=== PATIENT | female | born 1935 | race Hispanic/Latino ===

== ENCOUNTER 2017-09-08 21:15 | Emergency (ER) | payer OTHER ==
[2017-09-08 22:43] LABS: Urine Blood NEGATIVE (NEG); Urine Glucose NEGATIVE (NEG); Urine Protein NEGATIVE (NEG)
--- NOTE | 2017-09-08 23:49 | EDPHYS ---
Physician Documentation [facility] Name: Wen Aguirre Age: 82 yrs Sex: Female : 1935 Arrival Date: 09/08/2017 Time: 21:32 Bed 6 Private MD: ED Physician Kvng Ruggiero HPI: 09/08 23:44 This 82 yrs old Female presents to ER via Ambulatory with complaints of Flu gs Symptoms. 23:44 The patient or guardian reports cough, flu symptoms, arthralgias, low-grade fever, gs myalgias, no appetite. Onset: The symptoms/episode began/occurred yesterday. Severity of symptoms: At their worst the symptoms were moderate, in the emergency department the symptoms are unchanged. Modifying factors: The symptoms are alleviated by nothing, the symptoms are aggravated by nothing. Associated signs and symptoms: Pertinent positives: sore throat, Pertinent negatives: diarrhea, vomiting. The patient has experienced similar episodes in the past, a few times. Historical: - Home Meds: 21:57 Ecotrin 81 MG Oral 1 tab once daily [Active]; clopidogrel 75 mg oral tab 1 tab once bp daily [Active]; folic acid 1 mg Oral tab 1 tab once daily [Active]; gabapentin 100 mg oral cap 1 caps 3 times per day [Active]; glipizide 10 mg Oral tab 1 tab 2 times per day [Active]; pantoprazole 40 mg oral TbEC 1 tab once daily [Active]; Iron CR 65 MG Oral daily [Active]; Januvia 100 mg oral tab 1 tab once daily [Active]; lovastatin 40 mg Oral tab 1 tab once daily [Active]; donepezil 10 mg oral tab 1 tab once daily [Active]; quetiapine 100 mg oral tab 1 tab [Active]; ranitidine HCl 300 mg Oral cap 1 cap once daily [Active]; furosemide 40 mg Oral tab 1 tab once daily [Active]; levothyroxine 100 mcg tab 1 tab once daily [Active]; fexofenadine 60 mg Oral tab 1 tab 2 times per day [Active]; - PMHx: 21:54 Hypertension; Diabetes - NIDDM; Back pain; Arthritis; ao - PSHx: 21:54 stents; ao - Immunization history:: Adult Immunizations unknown. - Social history:: Smoking status: Patient/guardian denies using tobacco, Patient/guardian denies using alcohol, street drugs. ROS: 23:44 All other systems are negative. gs Exam: 23:44 Head/Face: Normocephalic, atraumatic. Eyes: Pupils equal round and reactive to light, gs extra-ocular motions intact. Lids and lashes normal. Conjunctiva and sclera are non-icteric and not injected. Cornea within normal limits. Periorbital areas with no swelling, redness, or edema. ENT: Nares patent. No nasal discharge, no septal abnormalities noted. Tympanic membranes are normal and external auditory canals are clear. Oropharynx with no redness, swelling, or masses, exudates, or evidence of obstruction, uvula midline. Mucous membranes moist. Neck: Trachea midline, no thyromegaly or masses palpated, and no cervical lymphadenopathy. Supple, full range of motion without nuchal rigidity, or vertebral point tenderness. No Meningismus. Chest/axilla: Normal chest wall appearance and motion. Nontender with no deformity. No lesions are appreciated. Cardiovascular: Regular rate and rhythm with a normal S1 and S2. No gallops, murmurs, or rubs. Normal PMI, no JVD. No pulse deficits. Respiratory: Lungs have equal breath sounds bilaterally, clear to auscultation and percussion. No rales, rhonchi or wheezes noted. No increased work of breathing, no retractions or nasal flaring. Abdomen/GI: Soft, non-tender, with normal bowel sounds. No distension or tympany. No guarding or rebound. No evidence of tenderness throughout. Back: No spinal tenderness. No costovertebral tenderness. Full range of motion. Skin: Warm, dry with normal turgor. Normal color with no rashes, no lesions, and no evidence of cellulitis. MS/ Extremity: Pulses equal, no cyanosis. Neurovascular intact. Full, normal range of motion. Neuro: Awake and alert, GCS 15, oriented to person, place, time, and situation. Cranial nerves II-XII grossly intact. Motor strength 5/5 in all extremities. Sensory grossly intact. Cerebellar exam normal. Normal gait. 23:44 Constitutional: The patient appears alert, awake. Vital Signs: 21:52 BP 118 / 60; Pulse 64; Resp 18; Temp 98.0(O); Pulse Ox 100% on R/A; Weight 71.21 kg ao (R); Height 5 ft. 1 in. (154.94 cm) (R); Pain 3/10; 22:45 BP 141 / 58; Pulse 58; Resp 14; Pulse Ox 98% ; bp 09/09 00:05 BP 104 / 73; Pulse 60; Resp 16; Pulse Ox 100% ; bp 09/08 21:52 Body Mass Index 29.66 (71.21 kg, 154.94 cm) ao MDM: 09/08 22:02 Patient medically screened. 23:44 Differential Diagnosis: Bronchitis Influenza Upper Respiratory Infection. Data reviewed: vital signs, nurses notes. Response to treatment: the patient's symptoms have mildly improved after treatment, and as a result, I will discharge patient. 09/08 22:03 Order name: Flu 09/08 22:20 Order name: Urine Dipstick--Ancillary (enter results) fl 09/08 22:03 Order name: Urine Dipstick-Ancillary (obtain specimen); Complete Time: 22:20 09/08 22:43 Order name: Urine Dipstick-Ancillary; Complete Time: 23:05 EDMS 09/08 22:45 Order name: Influenza Screen (A ; Complete Time: 23:05 EDMS Administered Medications: No medications were administered Disposition: 09/08/17 23:48 Discharged to Home. Impression: Fever, unspecified, Influenza due to unidentified influenza virus. - Condition is Stable. - Discharge Instructions: Ibuprofen Dosage Chart, Pediatric, Acetaminophen Dosage Chart, Pediatric, Influenza, Adult, Viral Infections, [id number]. - Medication Reconciliation Form, Thank You Letter, Antibiotic Education, Prescription Opioid Use form. - Follow up: Private Physician; When: 1 - 2 days; Reason: Re-evaluation by your physician. Signatures: Dispatcher [employer] EDOH Derrick Enrique RN RN Kvng Leos MD MD gs Peltier, Brian RN RN bp
--- NOTE | 2017-09-08 23:49 | ER ---
Nurse's Notes [facility] Name: Wen Aguirre Age: 82 yrs Sex: Female : 1935 Arrival Date: 09/08/2017 Time: 21:32 Bed 6 Private MD: Diagnosis: Fever, unspecified;Influenza due to unidentified influenza virus Presentation: 09/08 21:49 Presenting complaint: Patient states: "I been having body aches and other flu like ao symptoms. My daughter and her partner had been diagnosed with the flu and I think I'm getting it also." Patient states symptoms stated this morning. Transition of care: patient was not received from another setting of care. Onset of symptoms was September 08, 2017 at 07:00. Care prior to arrival: None. 21:49 Method Of Arrival: Ambulatory ao 21:49 Acuity: ELSA 4 ao Historical: - Home Meds: 21:57 Ecotrin 81 MG Oral 1 tab once daily [Active]; clopidogrel 75 mg oral tab 1 tab once bp daily [Active]; folic acid 1 mg Oral tab 1 tab once daily [Active]; gabapentin 100 mg oral cap 1 caps 3 times per day [Active]; glipizide 10 mg Oral tab 1 tab 2 times per day [Active]; pantoprazole 40 mg oral TbEC 1 tab once daily [Active]; Iron CR 65 MG Oral daily [Active]; Januvia 100 mg oral tab 1 tab once daily [Active]; lovastatin 40 mg Oral tab 1 tab once daily [Active]; donepezil 10 mg oral tab 1 tab once daily [Active]; quetiapine 100 mg oral tab 1 tab [Active]; ranitidine HCl 300 mg Oral cap 1 cap once daily [Active]; furosemide 40 mg Oral tab 1 tab once daily [Active]; levothyroxine 100 mcg tab 1 tab once daily [Active]; fexofenadine 60 mg Oral tab 1 tab 2 times per day [Active]; - PMHx: 21:54 Hypertension; Diabetes - NIDDM; Back pain; Arthritis; ao - PSHx: 21:54 stents; ao - Immunization history:: Adult Immunizations unknown. - Social history:: Smoking status: Patient/guardian denies using tobacco, Patient/guardian denies using alcohol, street drugs. Screenin:00 Abuse screen: Denies threats or abuse. Denies injuries from another. Nutritional bp screening: No deficits noted. Tuberculosis screening: No symptoms or risk factors identified. Fall Risk No fall in past 12 months (0 pts). Secondary diagnosis (15 points) impaired mobility, No IV (0 pts). Ambulatory Aid- Crutches/Cane/Walker (15 pts). Gait- Normal/Bed Rest/Wheelchair (0 pts) Mental Status- Oriented to own ability (0 pts). Total Shen Fall Scale indicates Low Risk Score (25-44 pts). Fall prevention measures have been instituted. Side Rails Up X 2 Frequent Obs/Assesments occuring Family Present and informed to notify staff if they need to leave bedside As available Patient and Family Educated on Fall Prevention Program and strategies. Assessment: 21:55 General: Appears in no apparent distress. comfortable, obese, Behavior is calm, bp cooperative, appropriate for age, 82YO HF P/W MYALGIA AND CHILLS SINCE THIS AM, RECENT EXPOSURE TO FLU. Pain: Complains of pain in GENERALIZED. Neuro: Level of Consciousness is awake, alert, obeys commands, Oriented to person, place, time, situation, Appropriate for age. Cardiovascular: No deficits noted. Respiratory: Airway is patent Respiratory effort is even, unlabored, Respiratory pattern is regular, symmetrical. GI: No deficits noted. : Reports burning with urination. EENT: No deficits noted. Derm: No deficits noted. Musculoskeletal: Circulation, motion, and sensation intact. Range of motion: intact in all extremities. 22:51 Reassessment: AWAITING LAB RESULTS FOR DISPO. NO ACUTE S/S AT THIS TIME. bp 09/09 00:04 Reassessment: PT D/C HOME WITH FAMILY VIA PERSONAL W/C, DX WITH UNSPECIFIED VIRAL bp INFECTION. Vital Signs: 09/08 21:52 BP 118 / 60; Pulse 64; Resp 18; Temp 98.0(O); Pulse Ox 100% on R/A; Weight 71.21 kg ao (R); Height 5 ft. 1 in. (154.94 cm) (R); Pain 3/10; 22:45 BP 141 / 58; Pulse 58; Resp 14; Pulse Ox 98% ; bp 09/09 00:05 BP 104 / 73; Pulse 60; Resp 16; Pulse Ox 100% ; bp 09/08 21:52 Body Mass Index 29.66 (71.21 kg, 154.94 cm) ao ED Course: 09/08 21:32 Patient arrived in ED. mr 21:39 Kvng Ruggiero MD is Attending Physician. 21:46 John Albright, RN is Primary Nurse. bp 21:51 Triage completed. ao 21:51 Arm band placed on right wrist. Patient placed in an exam room, on a stretcher, on ao pulse oximetry, Patient notified of wait time. 22:00 Patient has correct armband on for positive identification. Bed in low position. Call bp light in reach. Side rails up X2. Adult w/ patient. 22:20 Flu Sent. bp 09/09 00:04 No provider procedures requiring assistance completed. Patient did not have IV access bp during this emergency room visit. Administered Medications: No medications were administered Outcome: 09/08 23:48 Discharge ordered by . 09/09 00:05 Discharged to home via wheelchair, with family. bp Condition: stable Discharge instructions given to patient, family, Instructed on discharge instructions, follow up and referral plans. Demonstrated understanding of instructions, follow-up care. 00:06 Patient left the ED. bp Signatures: Joy Gandhi mr EnriqueDerrick, RN RN ao Kvng Ruggiero MD MD gs Peltier, Brian, RN RN bp
== END 2017-09-09 00:06 | disposition home or self-care (01) ==
LOC: ER 21:15
DX: J11.89 Influenza due to unidentified influenza virus with other manifestations (principal); I10 Essential (primary) hypertension; E11.9 Type 2 diabetes mellitus without complications
CPT/HCPCS: 81003; 87804; 99283

== ENCOUNTER 2017-10-20 11:38 | Emergency (ER) | payer OTHER ==
[2017-10-20] MEDS ORDERED: CEFTRIAXONE/SWI 1gm 1 GM/10 ML SYR ONE (12:13)
[2017-10-20] MEDS ORDERED: NA CHLORIDE 0.9% 1,000 ML ONE (12:13)
[2017-10-20 12:52] LABS: Albumin 3.9 g/dL (3.2-5.5); Bilirubin Direct 0.1 mg/dL (0-0.2); Bilirubin Total 0.6 mg/dL (0.3-1.2); Protein, Total 7.9 g/dL (6.0-8.3); Protime INR 1.07
[2017-10-20 12:55] LABS: Absolute Lymphocytes (CBC) 1.8 K/uL (0.7-4.9); Absolute Monocytes 0.6 K/uL (0.1-1.3); Absolute Neutrophil 8.7 K/uL (1.8-8.0); Basophils % 0.8 % (0-1.3); Hematocrit 35.3 % (36.0-45.0); Lymphocytes % 15.9 % (15.3-44.8); MCH 31.1 pg (27.0-35.0); MCV 94.2 fL (80-100); MPV 11.2 fL (7.6-11.3); RBC Red Blood Cell Count 3.75 M/uL (3.86-4.86)
--- NOTE | 2017-10-20 13:15 | RAD REPORT ---
EXAM DESCRIPTION: Thuy Single View10/20/2017 12:59 pm CLINICAL HISTORY: Fever COMPARISON: None FINDINGS: The lungs appear clear of acute infiltrate. The heart is normal size. Postsurgical changes involve the chest. IMPRESSION: No acute abnormalities displayed
--- NOTE | 2017-10-20 13:27 | RAD REPORT ---
EXAM DESCRIPTION: RAD - Shoulder Right 2 View - 10/20/2017 1:14 pm CLINICAL HISTORY: Right shoulder pain FINDINGS: No fracture or dislocation is seen. A prominent spur extends off of the inferior aspect of the acromion which may result in impingement s yndrome. Mild narrowing of the acromioclavicular joint is present. Subchondral cysts are present in the humeral head. The bones are osteoporotic
--- NOTE | 2017-10-20 14:12 | RAD REPORT ---
EXAM DESCRIPTION: CT - Stone Protocol - 10/20/2017 1:48 pm CLINICAL HISTORY: Abdominal pain. Urinary tract infection COMPARISON: None. TECHNIQUE: Computed axial tomography of the abdomen pelvis was obtained without oral or IV contrast. Lack of IV and oral contrast limits evaluation of solid organs, bowel, and vessels. Coronal reformat rm images were obtained and reviewed. All CT scans are performed using dose optimization technique as appropriate and may include automated exposure control or mA/KV adjustment according to patient size. FINDINGS: A renal calculus is not seen. An ureteral calculus is not noted. A bladder calculus is not present. The kidneys are mildly diminished in size. Two right renal cysts are present. The largest m easures 2 centimeters The liver, spleen, pancreas and adrenals appear grossly normal There is no evidence of diverticulitis. The appendix appears normal. A moderate amount of stool is present throughout the colon. A hysterectomy has been performed. A small hiatal hernia is seen IMPRESSION: Negative for a genitourinary calculus A moderate amount of stool throughout the colon
--- NOTE | 2017-10-20 15:24 | EKG ---
Test Date: 2017-10-20 Test Time: 12:03:37 Rn Iv Therapy: WESTLEY MEASUREMENT RESULTS: Intervals: Rate: 78 IL: 194 QRSD: 112 QT: 410 QTc: 467 [place]: P: 34 IL: 194 QRS: 21 T: 24 INTERPRETIVE STATEMENTS: Normal sinus rhythm Right bundle branch block Possible Inferior infarct, age undetermined Abnormal ECG No previous ECG available for comparison Electronically Signed On 10-20-17 15:23:24 CDT by Ranjeet Sosa
--- NOTE | 2017-10-20 18:39 | ER ---
Nurse's Notes [facility] Name: Wen Aguirre Age: 82 yrs Sex: Female : 1935 Arrival Date: 10/20/2017 Time: 11:39 Bed 7 Private MD: Diagnosis: Calcific tendinitis of right shoulder Presentation: 10/20 11:39 Presenting complaint: EMS states: pt c/o of right shoulder pain, pt family reports sg history of torn rotator cuff or some injury to the shoulder many years ago, pt has had a quadruple bypass several years ago. pt denies injury to the shoulder, no other complaints at this time. pt daughter states the pt is currently being treated for UTI and is on abx Augmentin, reports low grade fevers. Transition of care: patient was not received from another setting of care. Onset of symptoms was October 20, 2017. Initial Sepsis Screen: Does the patient meet any 2 criteria? Temp <36.0*C (96.8*F)) or > 38.3*C (100.4*F). No. Patient's initial sepsis screen is negative. Does the patient have a suspected source of infection? Yes: Dysuria/Frequency/Urgency/UTI. Care prior to arrival: IV initiated. 20 GA, in the left antecubital area. 11:39 Method Of Arrival: EMS: [facility] 11:39 Acuity: ELSA 3 sg Triage Assessment: 11:40 General: Appears in no apparent distress. uncomfortable, well groomed, well developed, sg well nourished, Behavior is cooperative, appropriate for age, fussy. Pain: Complains of pain in anterior aspect of right shoulder and posterior aspect of right shoulder. EENT: No signs and/or symptoms were reported regarding the EENT system. Neuro: Level of Consciousness is awake, alert, obeys commands, Speech is normal, Facial symmetry appears normal, pt is [place]an speaking only. Cardiovascular: Heart tones S1 S2 present Capillary refill is brisk in bilateral fingers Chest pain is denied. Respiratory: Airway is patent Respiratory effort is even, unlabored, Respiratory pattern is regular, symmetrical. GI: No signs and/or symptoms were reported involving the gastrointestinal system. : No deficits noted. Reports urgency, urinary frequency. Derm: Skin is pink, warm \\T\\ dry. Musculoskeletal: No signs and/or symptoms reported regarding the musculoskeletal system. Historical: - Allergies: 12:12 No Known Allergies; sg - PMHx: 11:44 Arthritis; Back pain; Diabetes - NIDDM; Hypertension; sg - PSHx: 11:44 stents; sg - Immunization history:: Adult Immunizations. - Social history:: Smoking status: Patient/guardian denies using tobacco. Screenin:40 Abuse screen: Denies threats or abuse. Denies injuries from another. Nutritional sg screening: No deficits noted. Tuberculosis screening: No symptoms or risk factors identified. Never had TB. Fall Risk None identified. Assessment: 12:40 Reassessment: Patient appears in no apparent distress at this time. Patient and/or sg family updated on plan of care and expected duration. Pain level reassessed. Patient is alert, oriented x 3, equal unlabored respirations, skin warm/dry/pink. 13:40 Reassessment: Patient appears in no apparent distress at this time. Patient and/or sg family updated on plan of care and expected duration. Pain level reassessed. Patient is alert, oriented x 3, equal unlabored respirations, skin warm/dry/pink. Patient states feeling better. 14:40 Reassessment: Patient appears in no apparent distress at this time. Patient and/or sg family updated on plan of care and expected duration. Pain level reassessed. Patient is alert, oriented x 3, equal unlabored respirations, skin warm/dry/pink. Patient states feeling better. 15:40 Reassessment: Patient appears in no apparent distress at this time. Patient and/or sg family updated on plan of care and expected duration. Pain level reassessed. Patient is alert, oriented x 3, equal unlabored respirations, skin warm/dry/pink. awaiting a urine specimen at this time Patient states feeling better. 16:30 Reassessment: Patient appears in no apparent distress at this time. Patient and/or sg family updated on plan of care and expected duration. Pain level reassessed. Patient is alert, oriented x 3, equal unlabored respirations, skin warm/dry/pink. pt reports she needs to go the restroom, pt reports, I already went to the restroom in my brief. pt cleaned of incontinence.". 17:40 Reassessment: Patient appears in no apparent distress at this time. Patient and/or sg family updated on plan of care and expected duration. Pain level reassessed. Patient is alert, oriented x 3, equal unlabored respirations, skin warm/dry/pink. awaiting orders to straight cath pt at this time or continue to awaiting pt to report she needs to urinate, will continue to monitor. 18:40 Reassessment: at bedside updating pt and pt family on results and follow up sg care, pt and pt family stated understanding. 18:45 Reassessment: Patient appears in no apparent distress at this time. Liza at bedside sg for translation of discharge papers, medications, and a follow up care, pt daughter and pt stated understanding. 19:00 Reassessment: report given to Perla ORELLANA. sg Vital Signs: 11:45 BP 149 / 68; Pulse 80; Resp 19; Temp 100.1; Pulse Ox 98% on R/A; Pain 10/10; sg 13:00 BP 136 / 60; Pulse 77; Resp 17 S; Pulse Ox 99% on R/A; sg 14:00 BP 135 / 58; Pulse 75; Resp 17 S; Pulse Ox 99% on R/A; sg 15:00 BP 124 / 55; Pulse 75; Resp 18; Pulse Ox 100% on R/A; sg 16:18 BP 128 / 56; Pulse 81; Resp 18; Pulse Ox 99% on R/A; jb1 17:20 BP 105 / 56; Pulse 72; Resp 17; Temp 99.0; Pulse Ox 99% on R/A; Pain 0/10; sg 19:22 BP 112 / 47; Pulse 73; Resp 16; Temp 99; Pulse Ox 100% on R/A; Pain 0/10; ak1 Lyle Coma Score: 17:20 Eye Response: spontaneous(4). Verbal Response: oriented(5). Motor Response: obeys sg commands(6). Total: 15. ED Course: 11:39 Patient arrived in ED. sg 11:42 Triage completed. sg 11:42 Arm band placed on. sg 11:50 Kvng Ruggiero MD is Attending Physician. gs 12:05 Initial lab(s) drawn, by me, sent to lab. First set of blood cultures drawn by me. jb1 12:10 Patient has correct armband on for positive identification. Bed in low position. Call sg light in reach. Side rails up X2. 12:15 EKG done, by printer technician. reviewed by Kvng Ruggiero MD. at1 12:20 Second set of blood cultures drawn by me. jb1 12:39 Gunnar Silver, RN is Primary Nurse. sg 12:54 X-ray completed. Portable x-ray completed in exam room. Patient tolerated procedure jb2 well. 12:59 Chest Single View XRAY In Process Unspecified. EDMS 13:10 X-ray completed. Portable x-ray completed in exam room. Patient tolerated procedure jb2 well. 13:11 Shoulder Right (2 View) XRAY In Process Unspecified. EDMS 13:41 CT completed. Patient tolerated procedure well. Patient moved to CT via stretcher. sj Patient moved back from CT. 13:48 CT Stone Protocol In Process Unspecified. EDMS 16:30 Cleaned of incontinence. Linen changed. sg 18:32 Repeat lab(s) drawn. by me, sent to lab. Urine collected: straight cath specimen, sg clear, Amount Returned: 500mL. 18:34 Straight cath inserted, using sterile technique, 16 Fr. Specimen obtained. Returned sg straight cath inserted by Rhina ORELLANA, with the assistance of me. Patient tolerated well. 18:37 Gunnar Thompson MD is Referral Physician. gs 19:21 Primary Nurse role handed off by Gunnar Silver RN sg 19:23 No provider procedures requiring assistance completed. IV discontinued, intact, ak1 bleeding controlled, No redness/swelling at site. Pressure dressing applied. Administered Medications: 12:40 Drug: NS 0.9% 1000 ml Route: IV; Rate: 1 bolus; Site: left antecubital; sg 13:45 Follow up: Response: No adverse reaction; IV Status: Completed infusion; IV Intake: sg 900ml 19:20 Follow up: IV Status: Completed infusion ak1 12:40 Drug: Rocephin - (cefTRIAXone) 1 grams Route: IVPB; Infused Over: 30 mins; Site: left sg antecubital; 13:20 Follow up: Response: No adverse reaction; IV Status: Completed infusion; medicaiton sg administered slow IVP as per hospital policy and pharmacy recommendations Intake: 13:45 IV: 900ml; Total: 900ml. sg Outcome: 18:38 Discharge ordered by MD. gs 18:55 Discharge instructions given to patient, family, flasher adjuster, Instructed on discharge sg instructions, follow up and referral plans. no drinking with medication, no driving heavy equipment, medication usage, safety practices, Demonstrated understanding of instructions, follow-up care, medications, Prescriptions given X 2. 19:23 Discharged to home via wheelchair, with family. ak1 19:23 Condition: good 20:02 Patient left the ED. aa1 Signatures: Dispatcher [employer] EDMS Nathan Alexander jb1 Gunnar Silver RN RN sg Kern, Alissa, RN RN aa1 Aidan Ma2 Brenna Obregon Amanda, mounting machine operator EKG Tat1 Perla Tamez RN RN ak1 Kvng Ruggiero MD MD
--- NOTE | 2017-10-20 18:39 | EDPHYS ---
Physician Documentation [facility] Name: Wen Aguirre Age: 82 yrs Sex: Female : 1935 Arrival Date: 10/20/2017 Time: 11:39 Bed 7 Private MD: ED Physician Kvng Ruggiero HPI: 10/20 18:33 This 82 yrs old Female presents to ER via EMS with complaints of Shoulder Pain.gs 18:33 The patient or guardian complains of pain, that is chronic. right shoulder. Onset: The gs symptoms/episode began/occurred 1 week(s) ago. Modifying factors: the symptoms are alleviated by nothing. The symptoms are aggravated by movement. Associated signs and symptoms: Pertinent negatives: neck pain. Severity of symptoms: At their worst the symptoms were moderate, in the emergency department the symptoms are unchanged. The patient has experienced similar episodes in the past, multiple times. The patient has not recently seen a physician. Historical: - Allergies: 12:12 No Known Allergies; sg - PMHx: 11:44 Arthritis; Back pain; Diabetes - NIDDM; Hypertension; sg - PSHx: 11:44 stents; sg - Immunization history:: Adult Immunizations. - Social history:: Smoking status: Patient/guardian denies using tobacco. ROS: 18:33 All other systems are negative. gs Exam: 12:34 ECG was reviewed by the Attending Physician. gs 18:33 Head/Face: Normocephalic, atraumatic. Eyes: Pupils equal round and reactive to light, gs extra-ocular motions intact. Lids and lashes normal. Conjunctiva and sclera are non-icteric and not injected. Cornea within normal limits. Periorbital areas with no swelling, redness, or edema. ENT: Nares patent. No nasal discharge, no septal abnormalities noted. Tympanic membranes are normal and external auditory canals are clear. Oropharynx with no redness, swelling, or masses, exudates, or evidence of obstruction, uvula midline. Mucous membranes moist. Neck: Trachea midline, no thyromegaly or masses palpated, and no cervical lymphadenopathy. Supple, full range of motion without nuchal rigidity, or vertebral point tenderness. No Meningismus. Chest/axilla: Normal chest wall appearance and motion. Nontender with no deformity. No lesions are appreciated. Cardiovascular: Regular rate and rhythm with a normal S1 and S2. No gallops, murmurs, or rubs. Normal PMI, no JVD. No pulse deficits. Respiratory: Lungs have equal breath sounds bilaterally, clear to auscultation and percussion. No rales, rhonchi or wheezes noted. No increased work of breathing, no retractions or nasal flaring. Back: No spinal tenderness. No costovertebral tenderness. Full range of motion. Skin: Warm, dry with normal turgor. Normal color with no rashes, no lesions, and no evidence of cellulitis. Neuro: Awake and alert, GCS 15, oriented to person, place, time, and situation. Cranial nerves II-XII grossly intact. Motor strength 5/5 in all extremities. Sensory grossly intact. Cerebellar exam normal. Normal gait. 18:33 Constitutional: The patient appears alert, comfortable. 18:33 Abdomen/GI: Palpation: moderate abdominal tenderness, in all quadrants. 18:39 Musculoskeletal/extremity: Joints: the right shoulder displays painful range of gs motion, tenderness. Vital Signs: 11:45 BP 149 / 68; Pulse 80; Resp 19; Temp 100.1; Pulse Ox 98% on R/A; Pain 10/10; sg 13:00 BP 136 / 60; Pulse 77; Resp 17 S; Pulse Ox 99% on R/A; sg 14:00 BP 135 / 58; Pulse 75; Resp 17 S; Pulse Ox 99% on R/A; sg 15:00 BP 124 / 55; Pulse 75; Resp 18; Pulse Ox 100% on R/A; sg 16:18 BP 128 / 56; Pulse 81; Resp 18; Pulse Ox 99% on R/A; jb1 17:20 BP 105 / 56; Pulse 72; Resp 17; Temp 99.0; Pulse Ox 99% on R/A; Pain 0/10; sg 19:22 BP 112 / 47; Pulse 73; Resp 16; Temp 99; Pulse Ox 100% on R/A; Pain 0/10; ak1 Lyle Coma Score: 17:20 Eye Response: spontaneous(4). Verbal Response: oriented(5). Motor Response: obeys sg commands(6). Total: 15. MDM: 12:00 Patient medically screened. gs 18:33 Differential diagnosis: tendonitis, sepsis uti. Data reviewed: vital signs, nurses gs notes. Response to treatment: the patient's symptoms have markedly improved after treatment, and as a result, I will discharge patient. 18:39 ED course: pt had low grade fever ab pain, hx of recent uti will work up for sepsis, gs workup negative will hydrate discharge home. 10/20 12:04 Order name: Basic Metabolic Panel; Complete Time: 13:23 10/20 12:04 Order name: Blood Culture Adult (2) 10/20 12:04 Order name: CBC with Diff; Complete Time: 13:23 10/20 12:04 Order name: CPK; Complete Time: 13:23 10/20 12:04 Order name: Lactate; Complete Time: 13:23 10/20 12:04 Order name: LFT's; Complete Time: 13: 10/20 12:04 Order name: Lipase; Complete Time: 13: 10/20 12:04 Order name: Procalcitonin; Complete Time: 13:23 10/20 12:04 Order name: Protime (+inr); Complete Time: 13:23 10/20 12:04 Order name: Troponin (emerg Dept Use Only); Complete Time: 13:23 10/20 12:04 Order name: Chest Single View XRAY; Complete Time: 13: 10/20 12:49 Order name: Shoulder Right (2 View) XRAY; Complete Time: 14:44 10/20 18:32 Order name: Urine Dipstick--Ancillary (enter results) 10/20 18:56 Order name: Lactate Sepsis 2 HR Follow-up EDIL 10/20 12:04 Order name: Accucheck; Complete Time: 12: 10/20 12:04 Order name: Cardiac monitoring; Complete Time: 12: 10/20 12:04 Order name: EKG - Nurse/Tech; Complete Time: 12: 10/20 12:04 Order name: IV Saline Lock - Large Bore; Complete Time: 12: 10/20 12:04 Order name: Labs collected and sent; Complete Time: 12: 10/20 12:04 Order name: O2 Per Protocol; Complete Time: 12: 10/20 12:04 Order name: O2 Sat Monitoring; Complete Time: 12: 10/20 12:04 Order name: Urine Dipstick-Ancillary (obtain specimen); Complete Time: 18:31 10/20 13:27 Order name: CT Stone Protocol; Complete Time: 14:44 10/20 14:17 Order name: EKG Electrocardiogram EDIL EC:34 Rate is 78 beats/min. Rhythm is regular. SC interval is normal. QRS interval is gs prolonged. QT interval is normal. T waves are Normal. No ST changes noted. Clinical impression: Abnormal EKG without significant change. Interpreted by me. Administered Medications: 12:40 Drug: NS 0.9% 1000 ml Route: IV; Rate: 1 bolus; Site: left antecubital; sg 13:45 Follow up: Response: No adverse reaction; IV Status: Completed infusion; IV Intake: sg 900ml 19:20 Follow up: IV Status: Completed infusion ak1 12:40 Drug: Rocephin - (cefTRIAXone) 1 grams Route: IVPB; Infused Over: 30 mins; Site: left sg antecubital; 13:20 Follow up: Response: No adverse reaction; IV Status: Completed infusion; medicaiandre administered slow IVP as per hospital policy and pharmacy recommendations Disposition: 10/20/17 18:38 Discharged to Home. Impression: Calcific tendinitis of right shoulder. - Condition is Stable. - Discharge Instructions: Calcific Tendinitis. - Prescriptions for Colace 100 mg Oral Tablet - take 1 tablet by ORAL route every 12 hours; 14 tablet. Tylenol- Codeine #4 300-60 mg Oral Tablet - take 1 tablet by ORAL route every 6 hours As needed; 10 tablet. - Medication Reconciliation Form, Thank You Letter, Antibiotic Education, Prescription Opioid Use form. - Follow up: Gunnar Thompson MD; When: 2 - 3 days; Reason: Re-evaluation by your physician. Signatures: Dispatcher [employer] EDIL Gunnar Silver RN RN sg Sonya Erwin RN RN aa1 Kvng Ruggiero MD MD Perla Tamez RN ak1
[2017-10-20 18:49] LABS: Urine Blood NEGATIVE (NEG); Urine Glucose NEGATIVE (NEG); Urine Protein NEGATIVE (NEG)
== END 2017-10-20 20:02 | disposition home or self-care (01) ==
LOC: ER 11:38
DX: M75.31 Calcific tendinitis of right shoulder (principal); I10 Essential (primary) hypertension
CPT/HCPCS: 36415; 51702; 71045; 73030; 74176; 76377; 80048; 80076; 81003; 82550; 83605 ×2; 83690; 84145; 84484; 85025; 85610; 87040 ×2; 93005; 96365; 99285; J0696; J7030; 96361

== ENCOUNTER 2018-02-13 11:53 | Emergency (ER) | payer OTHER ==
--- OUTSIDE RECORDS SUMMARY | 2018-02-13 11:55 | XMS REPORT ---
:1935 Author Organization eClinical[employer] Care Team Providers Name Role Phone Alessandro Farrar Provider Role Unavailable Allergies, Adverse Reactions, Alerts Substance Reaction Event Type N.K.D.A. 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 type 2 diabetes mellitus Problem Type 2 diabetes mellitus without E11.9 Active complication, without long-term current use of insulin Problem History of right hip replacement Z96.641 Active Problem Other Alzheimer''s disease G30.8 Active Problem Acquired hypothyroidism E03.9 Active Problem Osteoporosis, unspecified M81.0 Active osteoporosis type, unspecified pathological fracture presence Problem Chronic kidney disease (CKD) stage N18.3 Active G3b/A1, moderately decreased glomerular filtration rate (GFR) between 30-44 mL/min/1.73 square meter and albuminuria creatinine ratio less than 30 mg/g Assessment History of right hip replacement Z96.641 Active Assessment Osteoporosis, unspecified M81.0 Active osteoporosis type, unspecified pathological fracture presence Problem GERD without esophagitis K21.9 Active Assessment Other Alzheimer''s disease G30.8 Active Problem 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 25022851506 1000 MCG Orally Active 1 tablet Once a day Donepezil HCl [facility] 31298014263 10 MG Orally Active 1 tablet Once a day at bedtime Clopidogrel [facility] 38433596262 75 MG Orally Active 1 tablet Bisulfate Once a day Quetiapine [facility] 00077826626 100 MG Orally Active 1 tablet Fumarate Once a day Ranitidine HCl [facility] 54966989853 300 MG Orally Active 1 tablet Once a day Levothyroxine ND 37100280673 88 MCG Orally Active 1 tablet Sodium Once a day on an empty stomach in the morning Gabapentin [facility] 43130294367 100 MG Orally Active 1 capsule Three times a day Furosemide [facility] 95917832533 40 MG Orally Active 1 tablet Once a day Stool Softener [facility] 71363826750 100 MG Orally Active 1 capsule Once a day as needed Ecotrin [facility] 35906437870 325 MG Orally Jul 05, Active 1 tablet Once a day 2018uvia [facility] 64736257693 100 MG Orally Active 1 tablet Once a day Folic Acid [facility] 99716128185 1 MG Orally Active 1 tablet Once a day Fexofenadine HCl [facility] 72203596969 60 MG Orally Jul 05, Active 1 tablet Once a day 2018 as needed Results No Known Results Summary Purpose eClinicalWorks Submission
--- OUTSIDE RECORDS SUMMARY | 2018-02-13 11:55 | XMS REPORT ---
:1935 Author Organization e[employer]Works Care Team Providers Name Role Phone Alessandro Farrar Provider Role Unavailable Allergies, Adverse Reactions, Alerts Substance Reaction Event Type N.K.D.A. Info Not Available Non Drug Allergy Problems Problem Type Condition Code Onset Dates Condition Status Problem Chronic kidney disease (CKD) stage N18.3 Active G3b/A1, moderately decreased glomerular filtration rate (GFR) between 30-44 mL/min/1.73 square meter and albuminuria creatinine ratio less than 30 mg/g Problem Type 2 diabetes mellitus without E11.9 Active complication, without long-term current use of insulin Problem Osteoporosis, unspecified M81.0 Active osteoporosis type, unspecified pathological fracture presence Problem Essential (primary) hypertension I10 Active Assessment Other Alzheimer''s disease G30.8 Active Problem Seasonal allergies J30.2 Active Problem Acquired hypothyroidism E03.9 Active Problem GERD without esophagitis K21.9 Active Problem Diabetic 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 type 2 diabetes mellitus Problem Mixed hyperlipidemia E78.2 Active Problem 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 Active classified elsewhere without behavioral disturbance Assessment Chronic kidney disease (CKD) stage N18.3 Active G3b/A1, moderately decreased glomerular filtration rate (GFR) between 30-44 mL/min/1.73 square meter and albuminuria creatinine ratio less than 30 mg/g Assessment Acquired hypothyroidism E03.9 Active Assessment 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 Active classified elsewhere without behavioral disturbance Assessment Diabetic 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 type 2 diabetes mellitus Assessment Seasonal allergies J30.2 Active Assessment Essential (primary) hypertension I10 Active Assessment Type 2 diabetes mellitus without E11.9 Active complication, without long-term current use of insulin Assessment Congestive heart failure, NYHA class I50.9 Active 1, unspecified congestive heart failure type Problem Other Alzheimer''s disease G30.8 Active Medications Medication Code Code Instructions Start End Status Dosage System Date Date Ecotrin [facility] 52563815000 325 MG Orally Jul 05, Active 1 tablet Once a day 2019 Fexofenadine HCl [facility] 43186333182 60 MG Orally Jul 05, Active 1 tablet Once a day 2019 as needed Vitamin B-12 [facility] 90690417699 1000 MCG Orally Active 1 tablet Once a day Januvia [facility] 50118092039 100 MG Orally Active 1 tablet Once a day Folic Acid [facility] 14082850008 1 MG Orally Active 1 tablet Once a day Clopidogrel [facility] 08058537205 75 MG Orally Active 1 tablet Bisulfate Once a day Quetiapine [facility] 31959253960 100 MG Orally Active 1 tablet Fumarate Once a day Ferrous Sulfate [facility] 43360700417 325 (65 Fe) MG Inactive 1 tablet Orally Once a day Levothyroxine [facility] 75536242038 88 MCG Orally Active 1 tablet Sodium Once a day on an empty stomach in the morning Gabapentin [facility] 79369794562 100 MG Orally Active 1 capsule Three times a day GlipiZIDE [facility] 29864933225 10 MG Orally Inactive 1 tablet Twice a day Donepezil HCl [facility] 23630164691 10 MG Orally Active 1 tablet Once a day at bedtime Ranitidine HCl [facility] 88789982090 300 MG Orally Active 1 tablet Once a day Stool Softener [facility] 82538970823 100 MG Orally Active 1 capsule Once a day as needed Furosemide [facility] 93122726486 40 MG Orally Active 1 tablet Once a day Results No Known Results Summary Purpose eClinicalWorks Submission
--- NOTE | 2018-02-13 12:35 | RAD REPORT ---
EXAM DESCRIPTION: CT - Head Brain Wo Cont - 02/13/2018 12:27 pm CLINICAL HISTORY: Headache/left mastoid pain COMPARISON: None. TECHNIQUE: Computed axial tomography of the head was obtained. IV contrast was not requested. All CT scans are performed using dose optimization technique as appropriate and may include automated exposure control or mA/KV adjustment according to patient size. FINDINGS: An intracranial bleed is not seen . The ventricles are normal in caliber. Mild cerebral atrophy is present. No extra-axial fluid collection is noted. Mild low-density areas within periventricular, deep and sub cortical white matter likely represent ischemic changes secondary to small vessel disease. Fluid within the sinuses/ mastoids is not seen. Sclerosis of the right mastoids is chronic IMPRESSION: No acute intracranial abnormality is seen. If patient's symptoms persist MRI of the bra in would be recommended.
[2018-02-13] MEDS ORDERED: FENTANYL CITR 100 MCG/2 ML ONE (12:40)
[2018-02-13] MEDS ORDERED: levoFLOXacin 500 MG TAB ONE (12:41)
--- NOTE | 2018-02-13 13:06 | ER ---
Nurse's Notes [facility] Name: Wen Aguirre Age: 82 yrs Sex: Female : 1935 Arrival Date: 02/13/2018 Time: 11:57 Bed 18 Private MD: Alessandro Farrar Diagnosis: Paresthesia of skin Presentation: 02/13 11:58 Presenting complaint: Child states: pain behind the left ear and jaw pain x 2 days. sv Transition of care: patient was not received from another setting of care. Onset of symptoms was February 11, 2018. Care prior to arrival: None. 11:58 Method Of Arrival: Wheelchair sv 11:58 Acuity: ELSA 3 sv 13:25 Risk Assessment: Do you want to hurt yourself or someone else? Patient reports no la1 desire to harm self or others. Initial Sepsis Screen: Does the patient meet any 2 criteria? No. Patient's initial sepsis screen is negative. Does the patient have a suspected source of infection? No. Patient's initial sepsis screen is negative. Historical: - Allergies: 12:00 No Known Allergies; sv - PMHx: 12:00 Arthritis; Diabetes - NIDDM; Back pain; Hypertension; sv - PSHx: 12:00 stents; sv - Immunization history:: Adult Immunizations up to date. - Social history:: Smoking status: Patient/guardian denies using tobacco. - Ebola Screening: : No symptoms or risks identified at this time. Screenin:47 Abuse screen: Denies threats or abuse. Nutritional screening: No deficits noted. la1 Tuberculosis screening: No symptoms or risk factors identified. Fall Risk None identified. Assessment: 12:46 General: Appears in no apparent distress. Behavior is calm, cooperative. Pain: la1 Complains of pain in left ear. Neuro: Level of Consciousness is awake, alert, obeys commands, Oriented to person, place, time, situation. Cardiovascular: Capillary refill < 3 seconds Patient's skin is warm and dry. Respiratory: Airway is patent Respiratory effort is even, unlabored. GI: No signs and/or symptoms were reported involving the gastrointestinal system. : No signs and/or symptoms were reported regarding the genitourinary system. EENT: Tympanic membrane clear on left ear. Vital Signs: 12:00 BP 124 / 113; Pulse 76; Resp 18; Temp 97.5; Pulse Ox 99% ; Weight 75.3 kg; sv 12:46 BP 138 / 70; Pulse 67; Resp 16; Pulse Ox 97% on R/A; la1 ED Course: 11:57 Patient arrived in ED. sb2 11:57 Alessandro Farrar MD is Private Physician. sb2 11:59 Triage completed. sv 12:00 Arm band placed on left wrist. sv 12:02 Dereck Lugo RN is Primary Nurse. la1 12:02 Liz Beltran FNP-C is PHCP. snw 12:02 Chris Jarrett MD is Attending Physician. snw 12:25 CT completed. Patient tolerated procedure well. Patient moved to CT via stretcher. pa Patient moved back from CT. 12:26 CT Head Brain wo Cont In Process Unspecified. EDMS 12:47 Bed in low position. Call light in reach. la1 13:04 Alessandro Farrar MD is Referral Physician. snw 13:25 No provider procedures requiring assistance completed. Patient did not have IV access la1 during this emergency room visit. Administered Medications: 12:41 Drug: fentaNYL (PF) 50 mcg Route: IM; Site: right gluteus; la1 13:27 Follow up: Response: No adverse reaction; Pain is decreased la1 12:41 Drug: LevaQUIN 500 mg Route: PO; la1 13:27 Follow up: Response: No adverse reaction la1 Outcome: 13:05 Discharge ordered by . snw 13:26 Discharged to home via wheelchair. la1 13:26 Condition: stable 13:26 Discharge instructions given to patient, family, Instructed on discharge instructions, follow up and referral plans. medication usage, Demonstrated understanding of instructions, follow-up care, medications, Prescriptions given X 3. 13:27 Patient left the ED. la1 Signatures: Dispatcher [employer] EDVT Katherine Keating RN RN sv Therrien, Shelly, FNP-C FNP-Dereck Lopez RN RN la1 Reece Sterling Sheri sb2
--- NOTE | 2018-02-13 13:06 | EDPHYS ---
Physician Documentation [facility] Name: Wen Aguirre Age: 82 yrs Sex: Female : 1935 Arrival Date: 02/13/2018 Time: 11:57 Bed 18 Private MD: Alessandro Farrar ED Physician Chris Jarrett HPI: 02/13 13:08 This 82 yrs old Female presents to ER via Wheelchair with complaints of Ear snw Pain. 13:08 The patient presents with tenderness. The complaints affect the left ear. Onset: The snw symptoms/episode began/occurred suddenly, 2 day(s) ago, and became persistent. Associated signs and symptoms: The patient has no apparent associated signs or symptoms. Severity of symptoms: At their worst the symptoms were mild moderate. The patient has not experienced similar symptoms in the past. It is unknown whether or not the patient has recently seen a physician. no fever, no trauma, no loss of hearing, no chest pain, no neck pain, edentulous. Historical: - Allergies: 12:00 No Known Allergies; sv - PMHx: 12:00 Arthritis; Diabetes - NIDDM; Back pain; Hypertension; sv - PSHx: 12:00 stents; sv - Immunization history:: Adult Immunizations up to date. - Social history:: Smoking status: Patient/guardian denies using tobacco. - Ebola Screening: : No symptoms or risks identified at this time. ROS: 12:37 Constitutional: Negative for fever, chills, and weight loss, Eyes: Negative for injury, snw pain, redness, and discharge, Neck: Negative for injury, pain, and swelling, Cardiovascular: Negative for chest pain, palpitations, and edema, Respiratory: Negative for shortness of breath, cough, wheezing, and pleuritic chest pain, Abdomen/GI: Negative for abdominal pain, nausea, vomiting, diarrhea, and constipation, Back: Negative for injury and pain, : Negative for injury, bleeding, discharge, and swelling, MS/Extremity: Negative for injury and deformity, Skin: Negative for injury, rash, and discoloration, Neuro: Negative for headache, weakness, numbness, tingling, and seizure. 12:37 ENT: Positive for ear pain, tenderness behind left ear. Exam: 12:35 Constitutional: This is a well developed, well nourished patient who is awake, alert, snw and in no acute distress. 12:35 Neck: Trachea midline, no thyromegaly or masses palpated, and no cervical lymphadenopathy. Supple, full range of motion without nuchal rigidity, or vertebral point tenderness. No Meningismus. Chest/axilla: Normal chest wall appearance and motion. Nontender with no deformity. No lesions are appreciated. Cardiovascular: Regular rate and rhythm with a normal S1 and S2. No gallops, murmurs, or rubs. Normal PMI, no JVD. No pulse deficits. Respiratory: Lungs have equal breath sounds bilaterally, clear to auscultation and percussion. No rales, rhonchi or wheezes noted. No increased work of breathing, no retractions or nasal flaring. Abdomen/GI: Soft, non-tender, with normal bowel sounds. No distension or tympany. No guarding or rebound. No evidence of tenderness throughout. Back: No spinal tenderness. No costovertebral tenderness. Full range of motion. Skin: Warm, dry with normal turgor. Normal color with no rashes, no lesions, and no evidence of cellulitis. MS/ Extremity: Pulses equal, no cyanosis. Neurovascular intact. Full, normal range of motion. Neuro: Awake and alert, GCS 15, oriented to person, place, time, and situation. Cranial nerves II-XII grossly intact. Motor strength 5/5 in all extremities. Sensory grossly intact. Cerebellar exam normal. Normal gait. 12:35 Head/face: Noted is tenderness to left mastoid area, no bruit. No erythema, no edema. No fever. 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 12:35 ENT: TM's: dullness, on the left, Nose: is normal, Mouth: is normal, Posterior pharynx: is normal, Voice: is normal. Vital Signs: 12:00 BP 124 / 113; Pulse 76; Resp 18; Temp 97.5; Pulse Ox 99% ; Weight 75.3 kg; sv 12:46 BP 138 / 70; Pulse 67; Resp 16; Pulse Ox 97% on R/A; la1 MDM: 12:02 Patient medically screened. snw 13:07 Data reviewed: vital signs, nurses notes. Data interpreted: Pulse oximetry: on room air snw is 97 %. Interpretation: normal. Counseling: I had a detailed discussion with the patient and/or guardian regarding: the historical points, exam findings, and any diagnostic results supporting the discharge/admit diagnosis, the presence of at least one elevated blood pressure reading (>120/80) during this emergency department visit, radiology results, the need for outpatient follow up, to return to the emergency department if symptoms worsen or persist or if there are any questions or concerns that arise at home. Special discussion: I have referred the patient to see his PCP for further evaluation of high blood pressure. Based on the history and exam findings, there is no indication for further emergent testing or inpatient evaluation. I discussed with the patient/guardian the need to see the primary care provider for further evaluation of the symptoms. 02/13 12:12 Order name: CT Head Brain wo Cont; Complete Time: 12:38 snw Administered Medications: 12:41 Drug: fentaNYL (PF) 50 mcg Route: IM; Site: right gluteus; la1 13:27 Follow up: Response: No adverse reaction; Pain is decreased la1 12:41 Drug: LevaQUIN 500 mg Route: PO; la1 13:27 Follow up: Response: No adverse reaction la1 Disposition: 02/14 08:20 Co-signature as Attending Physician, Chris Jarrett MD I agree with the assessment and wa plan of care. Disposition: 02/13/18 13:05 Discharged to Home. Impression: Paresthesia of skin. - Condition is Stable. - Discharge Instructions: Hypertension, Paresthesia. - Prescriptions for Valtrex 1 g Oral Tablet - take 1 tablet by ORAL route every 8 hours for 7 days; 21 tablet. Diclofenac Sodium 75 mg Oral Tablet, Delayed Release (E.C.) - take 1 tablet by ORAL route 2 times per day; 10 tablet. Pepcid 20 mg Oral Tablet - take 1 tablet by ORAL route once daily for 10 days; 10 tablet. - Medication Reconciliation Form, Thank You Letter, Antibiotic Education, Prescription Opioid Use form. - Follow up: Alessandro Farrar MD; When: 1 - 2 days; Reason: Recheck today's complaints, Continuance of care, Re-evaluation by your physician. Follow up: Emergency Department; When: As needed; Reason: Worsening of condition. Signatures: Dispatcher [facility] Katherine Farrar RN RN Liz Amanda, PROCUREMENT REPRESENTATIVE-C PROCUREMENT REPRESENTATIVE-Csnw Dereck Lugo, RN RN la1 Chris Jarrett MD MD wa Corrections: (The following items were deleted from the chart) 02/13 13:27 13:05 02/13/2018 13:05 Discharged to Home. Impression: Paresthesia of skin. Condition la1 is Stable. Forms are Medication Reconciliation Form, Thank You Letter, Antibiotic Education, Prescription Opioid Use. Follow up: Alessandro Farrar; When: 1 - 2 days; Reason: Recheck today's complaints, Continuance of care, Re-evaluation by your physician. Follow up: Emergency Department; When: As needed; Reason: Worsening of condition. snw
== END 2018-02-13 13:27 | disposition home or self-care (01) ==
LOC: ER 11:53
DX: R20.2 Paresthesia of skin (principal); H92.02 Otalgia, left ear; E11.9 Type 2 diabetes mellitus without complications; I10 Essential (primary) hypertension; M19.90 Unspecified osteoarthritis, unspecified site
CPT/HCPCS: 70450; 96372; 99284; J3010

== ENCOUNTER 2018-02-16 13:44 | Observation (INO) | payer OTHER ==
--- OUTSIDE RECORDS SUMMARY | 2018-02-16 13:46 | XMS REPORT ---
[...] End Status Dosage System Date Date Ecotrin [facility] 92281111744 325 MG Orally Jul 05, Active 1 tablet Once a day 2019 Fexofenadine HCl [facility] 13432958743 60 MG Orally Jul 05, Active 1 tablet Once a day 2019 as needed Vitamin B-12 [facility] 29635472283 1000 MCG Orally Active 1 tablet Once a day Januvia [facility] 98079614965 100 MG Orally Active 1 tablet Once a day Folic Acid [facility] 00714036788 1 MG Orally Active 1 tablet Once a day Clopidogrel [facility] 92484649652 75 MG Orally Active 1 tablet Bisulfate Once a day Quetiapine [facility] 22069946867 100 MG Orally Active 1 tablet Fumarate Once a day Ferrous Sulfate [facility] 10518549057 325 (65 Fe) MG Inactive 1 tablet Orally Once a day Levothyroxine [facility] 53297088252 88 MCG Orally Active 1 tablet Sodium Once a day on an empty stomach in the morning Gabapentin [facility] 57062487004 100 MG Orally Active 1 capsule Three times a day GlipiZIDE [facility] 58207340837 10 MG Orally Inactive 1 tablet Twice a day Donepezil HCl [facility] 66148069055 10 MG Orally Active 1 tablet Once a day at bedtime Ranitidine HCl [facility] 11966800826 300 MG Orally Active 1 tablet Once a day Stool Softener [facility] 74500414928 100 MG Orally Active 1 capsule Once a day as needed Furosemide [facility] 14828463760 40 MG Orally Active 1 tablet Once a day Results No Known Results Summary Purpose eClinicalWorks Submission
--- OUTSIDE RECORDS SUMMARY | 2018-02-16 13:46 | XMS REPORT ---
[...] Status Dosage System Date Date Vitamin B-12 [facility] 36504249539 1000 MCG Orally Active 1 tablet Once a day Donepezil HCl [facility] 38063037709 10 MG Orally Active 1 tablet Once a day at bedtime Clopidogrel [facility] 86655341598 75 MG Orally Active 1 tablet Bisulfate Once a day Quetiapine [facility] 35068089624 100 MG Orally Active 1 tablet Fumarate Once a day Ranitidine HCl [facility] 15901214668 300 MG Orally Active 1 tablet Once a day Levothyroxine ND 64829394113 88 MCG Orally Active 1 tablet Sodium Once a day on an empty stomach in the morning Gabapentin [facility] 75386508276 100 MG Orally Active 1 capsule Three times a day Furosemide [facility] 13385155328 40 MG Orally Active 1 tablet Once a day Stool Softener [facility] 91686538777 100 MG Orally Active 1 capsule Once a day as needed Ecotrin [facility] 52237749956 325 MG Orally Jul 05, Active 1 tablet Once a day 2018uvia [facility] 17675119300 100 MG Orally Active 1 tablet Once a day Folic Acid [facility] 92013982162 1 MG Orally Active 1 tablet Once a day Fexofenadine HCl [facility] 68738882510 60 MG Orally Jul 05, Active 1 tablet Once a day 2018 as needed Results No Known Results Summary Purpose eClinicalWorks Submission
--- NOTE | 2018-02-16 15:02 | RAD REPORT ---
EXAM DESCRIPTION: CT - Head C Spine Cap Wo Con - 02/16/2018 2:36 pm CLINICAL HISTORY: Head and neck injury with chest and abdominal pain status post fall. TECHNIQUE: Computed axial tomography of the head and cervical spine was obtained. Coronal and sagitt al reconstruction was performed Computed axial tomography of the chest, abdomen and pelvis was obtained. Contrast was not requested. All CT scans are performed using dose optimization technique as appropriate and may include automated exposure control or mA/KV adjustment according to patient size. COMPARISON: February 13, [address] September [address] abdomen FINDINGS: The evaluation of mediastinum, laurie, vessels, solid organs and bowel is limited secondary to lack of contrast administration. An intracranial bleed is not seen. Mild low-density areas are present within periventricular and deep white matter likely secondary to ischemic changes secondary to small vessel disease. Cerebral atroph y is noted. Sclerosis of the right mastoids is seen. An extra-axial fluid collection is not present. A cervical fracture is not seen. No dislocation is noted. A central disc osteophyte complex C3-4 mild ly compresses upon the spinal cord A mediastinal hematoma is not seen. A pleural effusion is not present. A lung contusion is not seen. The liver, spleen, pancreas, adrenals, kidneys and bladder do not demonstrate a traumatic injury. IMPRESSION: 1. No acute intracranial abnormality is seen. 2. A cervical fracture is not visualized. If the patient continues have symptoms to suggest intracran ial/spinal cord pathology then MRI be recommended 3. No traumatic injury involving the chest/ abdomen/pelvis.
[2018-02-16 16:52] LABS: Absolute Monocytes 0.8 K/uL (0.1-1.3); Absolute Neutrophil 8.1 K/uL (1.8-8.0); Basophils % 0.6 % (0-1.3); Eosinophils % 4.5 % (0-4.4); Hematocrit 35.4 % (36.0-45.0); Lymphocytes % 17.1 % (15.3-44.8); MCH 30.3 pg (27.0-35.0); MCV 93.3 fL (80-100); MPV 11.3 fL (7.6-11.3)
[2018-02-16 17:00] LABS: Potassium 4.1 mmol/L (3.5-5.1)
[2018-02-16] MEDS ORDERED: FENTANYL CITR 100 MCG/2 ML ONE (17:10)
--- NOTE | 2018-02-16 19:07 | EKG ---
Test Date: 2018-02-16 Test Time: 13:48:33 Digital Marketing Lead: WESTLEY MEASUREMENT RESULTS: Intervals: Rate: 82 AR: 178 QRSD: 126 QT: 408 QTc: 476 Drasco: P: 28 AR: 178 QRS: -10 T: 35 INTERPRETIVE STATEMENTS: Normal sinus rhythm Right bundle branch block Inferior infarct, age undetermined Abnormal ECG Compared to ECG 10/20/2017 12:03:37 No significant changes Electronically Signed On 02-16-18 19:06:33 CDT by Ranjeet Sosa
--- NOTE | 2018-02-16 20:07 | ER ---
Nurse's Notes [facility] Name: Wen Aguirre Age: 82 yrs Sex: Female : 1935 Arrival Date: 02/16/2018 Time: 13:53 Bed 8 Private MD: Diagnosis: Acute kidney failure;Weakness;Cervical disc disorder with radiculopathy Presentation: 02/16 13:57 Presenting complaint: daughter reports that patient was seen recently for pain to the left side of her neck (February 13), and diagnosed with "some type of chicken pox". Daughter reports that she thought patient was improving, but she went to check on her Friday night and found her on the ground. Patient's daughter reports that she had to help patient back in bed. Patient was telling daughter she was hurting, but was unable to tell her exactly where. Daughter states that all day Friday she was just tired and today she noticed she hasn't been moving the left side of her body as much. Daughter reports L sided symptoms began Friday but have gotten worse. Transition of care: patient was not received from another setting of care. Onset of symptoms is unknown. Risk Assessment: Do you want to hurt yourself or someone else? Patient reports no desire to harm self or others. Initial Sepsis Screen: Does the patient meet any 2 criteria? No. Patient's initial sepsis screen is negative. Does the patient have a suspected source of infection? No. Patient's initial sepsis screen is negative. Care prior to arrival: None. 13:57 Method Of Arrival: EMS: [facility] 13:57 Acuity: ELSA 3 ss Historical: - PMHx: 14:00 Arthritis; Back pain; Diabetes - NIDDM; Hypertension; ss - Immunization history:: Adult Immunizations up to date. - Social history:: Smoking status: Patient/guardian denies using tobacco. - Ebola Screening: : Patient denies exposure to infectious person Patient denies travel to an Ebola-affected area in the 21 days before illness onset. Screenin:13 Abuse screen: Denies threats or abuse. Denies injuries from another. Nutritional aj screening: No deficits noted. Tuberculosis screening: No symptoms or risk factors identified. Fall Risk None identified. Assessment: 14:13 General: Appears in no apparent distress. uncomfortable, Behavior is calm, cooperative, aj appropriate for age. Pain: Complains of pain in left side of the back of head, left temporal area, left occipital area, left base of the skull, left clavicle, anterior aspect of left upper chest, left arm, left leg, left posterior aspect of neck and left lateral aspect of neck. Neuro: Level of Consciousness is awake, alert, obeys commands, Oriented to person, place, time, situation, Appropriate for age Moves all extremities. Full function Speech is normal, Facial symmetry appears normal, paresthesias in left eye, left side of forehead, left temporal area, left occipital area, left bahai, left ear, left zygomatic area, left base of the skull, left arm and left leg. Respiratory: Airway is patent Respiratory effort is even, unlabored, Respiratory pattern is regular, symmetrical. Derm: Skin is intact, is healthy with good turgor, Skin is pink, warm \\T\\ dry. normal. 17:00 Reassessment: Patient appears in no apparent distress at this time. No changes from aj previously documented assessment. Patient and/or family updated on plan of care and expected duration. Pain level reassessed. Patient is alert, oriented x 3, equal unlabored respirations, skin warm/dry/pink. 18:50 Reassessment: Patient appears in no apparent distress at this time. No changes from aj previously documented assessment. Patient and/or family updated on plan of care and expected duration. Pain level reassessed. Patient is alert, oriented x 3, equal unlabored respirations, skin warm/dry/pink. Daughter in room. 19:20 Reassessment: Pt currently in radiology. ea 20:30 General: Appears uncomfortable, Behavior is calm, cooperative, appropriate for age. ea Pain: Complains of pain in left zygomatic area and left side of forehead and left eye and left arm and left clavicle and left lateral aspect of neck and left posterior aspect of neck and left base of the skull and left occipital area and left temporal area and left side of the back of head Pain does not radiate. Pain currently is 7 out of 10 on a pain scale. Neuro: Level of Consciousness is awake, alert, obeys commands, Oriented to person, place, time, situation, Appropriate for age Moves all extremities. Full function Speech is normal, Facial symmetry appears normal. Cardiovascular: Heart tones S1 S2 present Patient's skin is warm and dry. Respiratory: Airway is patent Respiratory effort is even, unlabored, Respiratory pattern is regular, symmetrical. GI: No signs and/or symptoms were reported involving the gastrointestinal system. : No signs and/or symptoms were reported regarding the genitourinary system. Derm: Skin is intact, Skin is pink, warm \\T\\ dry. 21:00 Reassessment: Patient and/or family updated on plan of care and expected duration. Pain ea level reassessed. Patient is alert, oriented x 3, equal unlabored respirations, skin warm/dry/pink. 22:09 Reassessment: Patient and/or family updated on plan of care and expected duration. Pain ea level reassessed. Patient is alert, oriented x 3, equal unlabored respirations, skin warm/dry/pink. Patient denies pain at this time. 22:36 Reassessment: Patient and/or family updated on plan of care and expected duration. Pain ea level reassessed. Patient is alert, oriented x 3, equal unlabored respirations, skin warm/dry/pink. Report called to Bryson ORELLANA. Vital Signs: 14:00 BP 146 / 80; Pulse 82; Resp 16; Temp 98.4(O); Pulse Ox 99% on R/A; Weight 75.3 kg; ss Height 5 ft. 1 in. (154.94 cm); Pain 10/10; 14:59 BP 123 / 72; Pulse 86; Resp 18; Pulse Ox 100% ; dh3 17:00 BP 131 / 76; Pulse 74; Resp 17; Pulse Ox 98% on R/A; aj 18:00 BP 111 / 55; Pulse 73; Resp 15; Pulse Ox 100% on R/A; dh3 20:30 BP 142 / 87; Pulse 71; Resp 18; Pulse Ox 100% ; ea 21:30 BP 160 / 70; Pulse 80; Resp 18; Pulse Ox 98% on R/A; ea 22:27 BP 147 / 69; Pulse 70; Resp 18; Temp 97.8(O); Pulse Ox 100% on R/A; Pain 0/10; ea 14:00 Body Mass Index 31.37 (75.30 kg, 154.94 cm) ED Course: 13:53 Patient arrived in ED. aj 13:57 Ivone Rowland RN is Primary Nurse. sylvia 13:58 Liz Beltran FNP-C is [facility]. snw 13:58 Broderick Orozco MD is Attending Physician. snw 14:00 Triage completed. ss 14:00 Arm band placed on right wrist. ss 14:06 EKG done, by optical fabrication technician. reviewed by Broderick Orozco MD. at1 14:13 Patient has correct armband on for positive identification. Bed in low position. Side aj rails up X2. Adult w/ patient. air sampling and monitoring on. Pulse ox on. NIBP on. 14:[address] via stretcher. sw 14:31 CT completed. Patient tolerated procedure well. Patient moved back from CT. Patient sw moved back from radiology. 14:36 CT Traumagram (Head C Spine CAP wo con) In Process Unspecified. EDMS 17:02 Inserted saline lock: 22 gauge in right hand, using aseptic technique. Blood collected. aj 18:27 Attending Physician role handed off by Broderick Orozco MD snw 18:27 Kvng Ruggiero MD is Attending Physician. snw 18:40 MRI completed. Patient tolerated well. ka 19:15 C Spine Wo Cont In Process Unspecified. EDMS 19:20 Laya Freire RN is Primary Nurse. ea 19:52 Patient moved back from MRI. ka 20:06 Alessandro Farrar MD is Hospitalizing Provider. gs 21:23 No provider procedures requiring assistance completed. ea 22:28 Patient admitted, IV remains in place. ea Administered Medications: 17:07 Drug: fentaNYL (PF) 25 mcg Route: IVP; Site: right hand; aj 20:35 Follow up: Response: No adverse reaction; Pain is decreased ea 20:31 Drug: NS 0.9% 1000 ml Route: IV; Rate: 75 ml/hr; Site: left hand; ea 22:09 Follow up: Response: No adverse reaction; IV Status: Infusion continued upon admission ea 21:08 Drug: Tylenol 650 mg Route: PO; ea 22:08 Follow up: Response: No adverse reaction; Marked relief of symptoms; Pain is increased ea Outcome: 20:06 Decision to Hospitalize by Provider. gs 21:23 Instructed on the need for admit, Demonstrated understanding of instructions. ea 22:36 Admitted to Med/surg accompanied by nurse, room 422, with chart, Report called to otto Massey RN 22:36 Condition: stable 23:03 Patient left the ED. ea Signatures: Dispatcher [employer] EDIvone Tucker, RN RN Liz Martinez, PRICING ASSOCIATE-C PRICING ASSOCIATE-Csnw Rhina Gillespie, RN REYNA Ivone Adames, software implementation project manager EKG [facility]1 Norma Cook Katelyn ka Herrera, Sonia dh3 Laya Freire RN RN ea Starr, Gregory, MD MD
--- NOTE | 2018-02-16 20:07 | EDPHYS ---
Physician Documentation [facility] Name: Wen Aguirre Age: 82 yrs Sex: Female : 1935 Arrival Date: 02/16/2018 Time: 13:53 Bed 8 Private MD: ED Physician Kvng Ruggiero HPI: 02/16 14:20 This 82 yrs old Female presents to ER via EMS with complaints of Pain. snw 14:20 Onset: The symptoms/episode began/occurred 3 day(s) ago. Associated signs and symptoms: snw Pertinent positives: pain to left side of body. The patient has not experienced similar symptoms in the past. The patient has been recently seen by a physician: The patient has been recently seen at the [facility] Emergency Department, 2 days prior to symptoms. Pt states she did stand and feel weak 3 days ago and slid down chair to floor. Historical: - PMHx: 14:00 Arthritis; Back pain; Diabetes - NIDDM; Hypertension; ss - Immunization history:: Adult Immunizations up to date. - Social history:: Smoking status: Patient/guardian denies using tobacco. - Ebola Screening: : Patient denies exposure to infectious person Patient denies travel to an Ebola-affected area in the 21 days before illness onset. ROS: 14:17 Constitutional: Negative for fever, chills, and weight loss, Eyes: Negative for injury, snw pain, redness, and discharge, ENT: Negative for injury, pain, and discharge, Neck: Negative for injury, pain, and swelling, Cardiovascular: Negative for chest pain, palpitations, and edema, Respiratory: Negative for shortness of breath, cough, wheezing, and pleuritic chest pain, Abdomen/GI: Negative for abdominal pain, nausea, vomiting, diarrhea, and constipation. 14:17 Neck: Negative for injury and swelling, + pain Back: Negative for injury and pain, : Negative for injury, bleeding, discharge, and swelling, Skin: Negative for injury, rash, and discoloration. 14:17 Back: Positive for pain with movement. 14:17 MS/extremity: Positive for injury or acute deformity, decreased range of motion, pain, of the left leg and left arm. 14:17 Neuro: Positive for headache. Exam: 14:15 Constitutional: This is a well developed, well nourished patient who is awake, alert, snw and in no acute distress. Head/Face: Normocephalic, atraumatic. Eyes: Pupils equal round and reactive to light, extra-ocular motions intact. Lids and lashes normal. Conjunctiva and sclera are non-icteric and not injected. Cataract to right eye, left within normal limits. Periorbital areas with no swelling, redness, or edema. ENT: Nares patent. No nasal discharge, no septal abnormalities noted. Tympanic membranes are normal and external auditory canals are clear. Oropharynx with no redness, swelling, or masses, exudates, or evidence of obstruction, uvula midline. Mucous membranes moist. Neck: Trachea midline, no thyromegaly or masses palpated, and no cervical lymphadenopathy. Supple, full range of motion without nuchal rigidity, or vertebral point tenderness. No Meningismus. Chest/axilla: Normal chest wall appearance and motion. Nontender with no deformity. No lesions are appreciated. Cardiovascular: Regular rate and rhythm with a normal S1 and S2. No gallops, murmurs, or rubs. Normal PMI, no JVD. No pulse deficits. Respiratory: Lungs have equal breath sounds bilaterally, clear to auscultation and percussion. No rales, rhonchi or wheezes noted. No increased work of breathing, no retractions or nasal flaring. Abdomen/GI: Soft, non-tender, with normal bowel sounds. No distension or tympany. No guarding or rebound. No evidence of tenderness throughout. Back: No spinal tenderness. No costovertebral tenderness. Full range of motion. Skin: Warm, dry with normal turgor. Normal color with no rashes, no lesions, and no evidence of cellulitis. Neuro: Awake and alert, GCS 15, oriented to person, place, time, and situation. Cranial nerves II-XII grossly intact. Motor strength 5/5 in all extremities. Sensory grossly intact. Cerebellar exam normal. Normal gait. Psych: Awake, alert, with orientation to person, place and time. Behavior, mood, and affect are within normal limits. 14:15 Musculoskeletal/extremity: Extremities: grossly normal except: noted in the left arm, back, pelvis: decreased ROM, pain, ROM: limited active range of motion due to pain, Circulation is intact in all extremities. Sensation intact. 15:36 Special observations: no stroke like symptoms, pt has pain on movement of left side, no snw real weakness, no drift, no AMS, s/s worsening of three days, would not have considered TPA in any case as outside of any timeframe. Vital Signs: 14:00 BP 146 / 80; Pulse 82; Resp 16; Temp 98.4(O); Pulse Ox 99% on R/A; Weight 75.3 kg; ss Height 5 ft. 1 in. (154.94 cm); Pain 10/10; 14:59 BP 123 / 72; Pulse 86; Resp 18; Pulse Ox 100% ; dh3 17:00 BP 131 / 76; Pulse 74; Resp 17; Pulse Ox 98% on R/A; aj 18:00 BP 111 / 55; Pulse 73; Resp 15; Pulse Ox 100% on R/A; dh3 20:30 BP 142 / 87; Pulse 71; Resp 18; Pulse Ox 100% ; ea 21:30 BP 160 / 70; Pulse 80; Resp 18; Pulse Ox 98% on R/A; ea 22:27 BP 147 / 69; Pulse 70; Resp 18; Temp 97.8(O); Pulse Ox 100% on R/A; Pain 0/10; ea 14:00 Body Mass Index 31.37 (75.30 kg, 154.94 cm) ss MDM: 13:58 Patient medically screened. snw 18:21 Data reviewed: vital signs, nurses notes. Data interpreted: Pulse oximetry: on room air snw is 100 %. Interpretation: normal. Counseling: I had a detailed discussion with the patient and/or guardian regarding: the historical points, exam findings, and any diagnostic results supporting the discharge/admit diagnosis, lab results, radiology results. Response to treatment: pain improved. Awaiting: MRI results. 18:25 Physician consultation: Kvng Ruggiero MD care transferred. snw 02/16 16:09 Order name: CBC with Diff; Complete Time: 17:25 snw 02/16 16:09 Order name: Chem 7; Complete Time: 17:16 snw 02/16 16:09 Order name: Sed Rate; Complete Time: 17:25 snw 02/16 16:09 Order name: Misc. Lab Test; Complete Time: 06:42 snw 02/16 20:52 Order name: Basic Metabolic Panel EDMS 02/16 20:52 Order name: Basic Metabolic Panel; Complete Time: 06:42 EDMS 02/16 14:15 Order name: CT Traumagram (Head C Spine CAP wo con); Complete Time: 15:06 snw 02/16 16:45 Order name: C Spine Wo Cont; Complete Time: 20:46 EDMS 02/16 17:50 Order name: EKG Electrocardiogram EDTN 02/16 20:52 Order name: Physical Therapy Consult EDTN 02/16 20:52 Order name: Consistent Carb (ADA) 1800 Guy EDTN 02/16 16:09 Order name: SL; Complete Time: 17:03 snw Administered Medications: 17:07 Drug: fentaNYL (PF) 25 mcg Route: IVP; Site: right hand; aj 20:35 Follow up: Response: No adverse reaction; Pain is decreased ea 20:31 Drug: NS 0.9% 1000 ml Route: IV; Rate: 75 ml/hr; Site: left hand; ea 22:09 Follow up: Response: No adverse reaction; IV Status: Infusion continued upon admission ea 21:08 Drug: Tylenol 650 mg Route: PO; ea 22:08 Follow up: Response: No adverse reaction; Marked relief of symptoms; Pain is increased ea Disposition: 20:04 Co-signature as Attending Physician, Kvng Ruggiero MD. gs 20:05 pt seen and examined, general weakness, discussed with dr deluca appears in arf will gs admit hydrate wants ns at 75ml per hour. Disposition: 02/16/18 20:06 Hospitalization ordered by Alessandro Deluca for Inpatient Admission. Preliminary diagnosis are Acute kidney failure, Weakness, Cervical disc disorder with radiculopathy. - Bed requested for Telemetry/MedSurg (Inpatient). - Status is Inpatient Admission. ea - Condition is Stable. - Problem is new. - Symptoms have improved. UTI on Admission? No Signatures: Dispatcher [employer] EDTN Kwasi De Los Santos rg2 Ivone Rowland RN RN Liz Martinez FNP-[employer]-Rhina Booker RN Laya Dave RN RN ea Starr, Gregory, MD MD Corrections: (The following items were deleted from the chart) 20:06 20:06 Hospitalization Ordered by Alessandro Deluca MD for Inpatient Admission. Preliminary gs diagnosis is Acute kidney failure. Bed requested for Telemetry/MedSurg (Inpatient). Status is Inpatient Admission. Condition is Stable. Problem is new. Symptoms have improved. UTI on Admission? No. gs 20:07 20:06 02/16/2018 20:06 Hospitalization Ordered by Alessandro Deluca MD for Inpatient gs Admission. Preliminary diagnosis is Acute kidney failure; Weakness. Bed requested for Telemetry/MedSurg (Inpatient). Status is Inpatient Admission. Condition is Stable. Problem is new. Symptoms have improved. UTI on Admission? No. gs 21:52 20:07 02/16/2018 20:06 Hospitalization Ordered by Alessandro Deluca MD for Inpatient rg2 Admission. Preliminary diagnosis is Acute kidney failure; Weakness; Cervical disc disorder with radiculopathy. Bed requested for Telemetry/MedSurg (Inpatient). Status is Inpatient Admission. Condition is Stable. Problem is new. Symptoms have improved. UTI on Admission? No. 23:03 21:52 02/16/2018 20:06 Hospitalization Ordered by Alessandro Deluca MD for Inpatient Admission. Preliminary diagnosis is Acute kidney failure; Weakness; Cervical disc disorder with radiculopathy. Bed requested for Telemetry/MedSurg (Inpatient). Status is Inpatient Admission. Condition is Stable. Problem is new. Symptoms have improved. UTI on Admission? No. rg2
[2018-02-16] MEDS ORDERED: NA CHLORIDE 0.9% 1,000 ML ONE (20:19)
--- NOTE | 2018-02-16 20:26 | RAD REPORT ---
EXAM DESCRIPTION: MRI - C Spine Wo Cont - 02/16/2018 7:42 pm CLINICAL HISTORY: Radiculopathy COMPARISON: CT cervical spine February 16, 2018 TECHNIQUE: Magnetic resonance imaging of the cervical spine was obtained with coronal and sagittal r econstruction FINDINGS: C2-3 is unremarkable Moderate central disc herniation is present at C3-4 which mildly compresses the spinal cord. Slight anterior subluxation of C4 on C5 is present. Right facet hypertrophy results in mild narrowing of the right neural foramina Disc bulge and osteophytes at C5-6 result in moderate narrowing of the right and mild to moderate payton rowing of the left neural foramina. Small disc bulge is present at C6-7. The thecal sac measures 8 millimeters. C7-T1 is unremarkable. The spinal cord is normal signal. No abnormal signal within the bones is noted. 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
[2018-02-16] MEDS: NA CHLORIDE 0.9% 1,000 ML IV SCH (21:00)
[2018-02-16] MEDS ORDERED: ACETAMINOPHEN 325 MG TABLET ONE (21:09)
[2018-02-17 05:31] LABS: Potassium 3.8 mmol/L (3.5-5.1)
[2018-02-17] MEDS: NA CHLORIDE 0.9% 1,000 ML IV SCH ×2 (07:55→21:19)
[2018-02-17] MEDS ORDERED: PNEUMOCOCCAL VACCINE 0.5 ML IMVAC ONE (08:00)
[2018-02-17] MEDS: ACETAMINOPHEN 500 MG TAB PO PRN ×2 (08:15→16:52)
[2018-02-17 10:51] LABS: Urine Appearance CLEAR; Urine Bilirubin NEGATIVE (NEG); Urine Blood NEGATIVE (NEG); Urine Color YELLOW; Urine Glucose NEGATIVE (NEG); Urine Protein TRACE (NEG); Urine Specific Gravity 1.015 (1.005-1.030); Urine Urobilinogen 0.2 mg/dL (0.2-1.0)
[2018-02-17 10:55] LABS: Urine Microscopic Reflex ORDER UMIC
[2018-02-17 11:09] LABS: Urine Bacteria NONE SEEN /HPF (<20); Urine RBC <5 /HPF (NONE SEEN)
[2018-02-17 11:10] LABS: Urine Culture Reflex Order NOT NEEDED
--- NOTE | 2018-02-17 15:27 | P.HP ---
Certification for Inpatient Patient admitted to: Observation With expected LOS: <2 Midnights Patient will require the following post-hospital care: Fdc Practitioner: I am a practitioner with admitting privileges, knowledge of patient current condition, hospital course, and medical plan of care. Services: Services provided to patient in accordance with Admission requirements found in Title 42 Section 412.3 of the Code of Federal Regulations Patient History Date of Service: 02/17/18 Primary Care Provider: Charan Reason for admission: fall History of Present Illness: Patient is here after falling on her left shoulder. She has recently been in the office. She has been having trouble transfering and the family requested a hospital bed on the last office visit. However she fell yesterday and was having difficulty getting up. The family is not at the bedside. Patient is cymro speaking only. She is eating well. States she was able to make it to the bathroom Allergies No Known Allergies Allergy (Verified 02/17/18 00:46) Home Medications: Aspirin [Ecotrin 81 MG] 81 mg PO DAILY 02/17/18 Clopidogrel Bisulfate [Clopidogrel] 75 mg PO DAILY 02/17/18 Cyanocobalamin [Vitamin B-12*] 1,000 mcg PO DAILY 02/17/18 Docusate [Colace Cap*] 100 mg PO DAILY 02/17/18 Fexofenadine HCl 60 mg PO DAILY 02/17/18 Folic Acid 1 mg PO DAILY 02/17/18 Furosemide [Lasix*] 40 mg PO DAILY 02/17/18 Gabapentin [Neurontin*] 100 mg PO DAILY 02/17/18 Glipizide [Glucotrol] 10 mg PO DAILY 02/17/18 Levothyroxine [Synthroid*] 88 mcg PO DAILY 02/17/18 Lovastatin 40 mg PO DAILY 02/17/18 Pantoprazole Sodium 40 mg PO DAILY 02/17/18 Quetiapine Fumarate [Seroquel] 100 mg PO DAILY 02/17/18 Ranitidine [Zantac*] 300 mg PO DAILY 02/17/18 Sitagliptin Phosphate [Januvia*] 100 mg PO DAILY 02/17/18 - Past Medical/Surgical History Has patient received pneumonia vaccine in the past: No Diabetic: Yes -: arthritis -: back pain -: diabetes- NIDDM -: hypertension - Social History Smoking Status: Never smoker Alcohol use: No CD- Drugs: No Caffeine use: Yes Place of Residence: Home Review of Systems 10-point ROS is otherwise unremarkable Musculoskeletal: Other (left shoulder pain) Physical Examination - Vital Signs Temperature: 97.8 F Blood Pressure: 177/76 Pulse: 72 Respirations: 17 Pulse Ox (%): 98 - Physical Exam General: Alert, In no apparent distress HEENT: Atraumatic, PERRLA, Mucous membr. moist/pink, EOMI, Sclerae nonicteric Neck: Supple, 2+ carotid pulse no bruit, No LAD, Without JVD or thyroid abnormality Respiratory: Clear to auscultation bilaterally, Normal air movement Cardiovascular: Regular rate/rhythm, Normal S1 S2 Gastrointestinal: Normal bowel sounds, No tenderness Musculoskeletal: No tenderness Integumentary: No rashes Neurological: Normal gait, Normal speech, Normal strength at 5/5 x4 extr, Normal tone, Normal affect Lymphatics: No axilla or inguinal lymphadenopathy - Studies Laboratory Data (last 24 hrs) 02/16/18 16:28: Sodium 143, Potassium 4.1, BUN 45 H, Creatinine 2.20 H, Glucose 172 H 02/16/18 16:28: WBC 11.4 H, Hgb 11.5 L, Hct 35.4 L, Plt Count 245 Assessment and Plan - Problems (Diagnosis) (1) Acute renal failure Onset Date: 02/17/18 Current Visit: Yes Status: Acute Plan: Patient is stable. Baseline is ckd of 3. She has a creatine of 1.8 approx. Will keep monitoring. Qualifiers: Acute renal failure type: unspecified Qualified Code(s): N17.9 - Acute kidney failure, unspecified (2) Diabetes 1.5, managed as type 2 Current Visit: Yes Status: Acute Plan: conitnue home medications (3) Alzheimer's dementia without behavioral disturbance Current Visit: Yes Status: Acute Plan: Patient is verbal and eating. However has been having difficulty transfering at home. Has been getting more difficulty for the family to manage. Qualifiers: Alzheimer's disease onset: late-onset Qualified Code(s): G30.1 - Alzheimer' s disease with late onset; F02.80 - Dementia in other diseases classified elsewhere without behavioral disturbance Discharge Plan: Other Plan to discharge in: 24 Hours - Advance Directives Does patient have a Living Will: No Does patient have a Durable POA for Healthcare: No - Code Status/Comfort Care Code Status Assessed: No Code Status: Full Code Physician Review: Patient Assessed, Agree with Above Assessment and Plan Critical Care: No Time Spent Managing Pts Care (In Minutes): 50
[2018-02-17] MEDS ORDERED: D50W 25 GM/50 ML SYRINGE IV PRN (15:35)
[2018-02-17] MEDS ORDERED: GLUCAGON 1 MG/VIAL IM PRN (15:35)
[2018-02-17] MEDS: INSULIN -REGULAR HUMAN 50 UNIT/0.5 ML ML SQ SCH ×2 (16:30→21:20)
[2018-02-17] MEDS: ENOXAPARIN 30 MG/0.3 ML SQ SCH (16:52)
[2018-02-17] MEDS ORDERED: ENOXAPARIN 40 MG/0.4 ML SQ SCH (17:00)
[2018-02-17] MEDS ORDERED: ATORVASTATIN 20 MG TAB PO SCH (21:00)
[2018-02-18 07:03] LABS: Absolute Lymphocytes (CBC) 1.5 K/uL (0.7-4.9); Absolute Monocytes 0.5 K/uL (0.1-1.3); Absolute Neutrophil 8.7 K/uL (1.8-8.0); Basophils % 0.5 % (0-1.3); Eosinophils % 1.1 % (0-4.4); Hematocrit 32.7 % (36.0-45.0); Lymphocytes % 13.5 % (15.3-44.8); MCH 31.4 pg (27.0-35.0); MCV 92.7 fL (80-100); RBC Red Blood Cell Count 3.53 M/uL (3.86-4.86)
[2018-02-18] MEDS ORDERED: PANTOPRAZOLE 40MG TABLET PO SCH (07:30)
[2018-02-18] MEDS: INSULIN -REGULAR HUMAN 50 UNIT/0.5 ML ML SQ SCH ×3 (08:45→16:30)
[2018-02-18] MEDS ORDERED: LEVOTHYROXINE SOD 0.088 MG TAB PO SCH (09:00)
[2018-02-18] MEDS ORDERED: DOCUSATE NA 100 MG CAP PO SCH (09:00)
[2018-02-18] MEDS ORDERED: CYANOCOBALAMIN 1,000 MCG TAB PO SCH (09:00)
[2018-02-18] MEDS ORDERED: GABAPENTIN 100 MG CAP PO SCH (09:00)
[2018-02-18] MEDS ORDERED: HOME MED 1 EA UNK (Lovastatin [Lovastatin] 40 MG) PO SCH (09:00)
[2018-02-18] MEDS ORDERED: HOME MED 1 EA UNK (Clopidogrel Bisulfate [Clopidogrel] 75 MG) PO SCH (09:00)
[2018-02-18] MEDS ORDERED: FEXOFENADINE HCL 60 MG PO SCH (09:00)
[2018-02-18] MEDS ORDERED: ASPIRIN EC 81 MG TAB PO SCH (09:00)
[2018-02-18] MEDS ORDERED: FOLIC ACID 1 MG TABLET PO SCH (09:00)
[2018-02-18] MEDS ORDERED: CLOPIDOGREL 75 MG TABLET PO SCH (09:00)
[2018-02-18] MEDS ORDERED: QUETIAPINE 100MG TAB PO SCH (09:00)
--- NOTE | 2018-02-18 11:49 | P.DS ---
Admission Date: 02/16/18 Discharge Date: 02/18/18 Primary Care Provider: Charan Disposition: ROUTINE DISCHARGE Discharge Condition: FAIR Reason for Admission: fall - Problems (1) Acute renal failure Onset Date: 02/17/18 Current Visit: Yes Status: Acute Qualifiers: Acute renal failure type: unspecified Qualified Code(s): N17.9 - Acute kidney failure, unspecified (2) Diabetes 1.5, managed as type 2 Current Visit: Yes Status: Acute (3) Alzheimer's dementia without behavioral disturbance Current Visit: Yes Status: Acute Qualifiers: Alzheimer's disease onset: late-onset Qualified Code(s): G30.1 - Alzheimer' s disease with late onset; F02.80 - Dementia in other diseases classified elsewhere without behavioral disturbance Brief History of Present Illness: Patient is here after falling on her left shoulder. She has recently been in the office. She has been having trouble transfering and the family requested a hospital bed on the last office visit. However she fell yesterday and was having difficulty getting up. The family is not at the bedside. Patient is faroese speaking only. She is eating well. States she was able to make it to the bathroom Hospital Course: Patient was admitted and started on fluids. her kidney function improved. She was seen by PT. It was recomended she have twice daily PT for improvement in strength and balance. However the patient states she want to go home and not to a short term PT center. Will set up home PT and comply with the patients wishes Vital Signs/Physical Exam: Temp Pulse Resp BP Pulse Ox 98.4 F 77 18 162/74 H 97 02/18/18 08:00 02/18/18 08:00 02/18/18 08:00 02/18/18 08:00 02/18/18 08:00 General: Alert, In no apparent distress HEENT: Atraumatic, PERRLA, EOMI Neck: Supple, JVD not distended Respiratory: Clear to auscultation bilaterally, Normal air movement Cardiovascular: Regular rate/rhythm, Normal S1 S2 Gastrointestinal: Normal bowel sounds, No tenderness Musculoskeletal: No tenderness Integumentary: No rashes Neurological: Normal speech, Normal tone, Normal affect Lymphatics: No axilla or inguinal lymphadenopathy Laboratory Data at Discharge: WBC 10.9 K/uL (4.3-10.9) 02/18/18 05:58 Hgb 11.1 g/dL (12.0-15.0) L 02/18/18 05:58 Hct 32.7 % (36.0-45.0) L 02/18/18 05:58 Plt Count 256 K/uL (152-406) 02/18/18 05:58 Sodium 144 mmol/L (136-145) 02/17/18 15:50 Potassium 4.0 mmol/L (3.5-5.1) 02/17/18 15:50 BUN 33 mg/dL (7-18) H 02/17/18 15:50 Creatinine 1.70 mg/dL (0.55-1.3) H 02/17/18 15:50 Glucose 187 mg/dL (74-106) H 02/17/18 15:50 Home Medications: Aspirin [Ecotrin 81 MG] 81 mg PO DAILY 02/17/18 Clopidogrel Bisulfate [Clopidogrel] 75 mg PO DAILY 02/17/18 Cyanocobalamin [Vitamin B-12*] 1,000 mcg PO DAILY 02/17/18 Docusate [Colace Cap*] 100 mg PO DAILY 02/17/18 Fexofenadine HCl 60 mg PO DAILY 02/17/18 Folic Acid 1 mg PO DAILY 02/17/18 Furosemide [Lasix*] 40 mg PO DAILY 02/17/18 Gabapentin [Neurontin*] 100 mg PO DAILY 02/17/18 Glipizide [Glucotrol] 10 mg PO DAILY 02/17/18 Levothyroxine [Synthroid*] 88 mcg PO DAILY 02/17/18 Lovastatin 40 mg PO DAILY 02/17/18 Pantoprazole Sodium 40 mg PO DAILY 02/17/18 Quetiapine Fumarate [Seroquel] 100 mg PO DAILY 02/17/18 Ranitidine [Zantac*] 300 mg PO DAILY 02/17/18 Sitagliptin Phosphate [Januvia*] 100 mg PO DAILY 02/17/18 Diet: Regular (please refer home health for PT) Activity: Fall precautions Time spent managing pt's care (in minutes): 35
[2018-02-18] MEDS: ENOXAPARIN 30 MG/0.3 ML SQ SCH (16:13)
== END 2018-02-18 17:29 | disposition home or self-care (01) ==
LOC: ER 13:44 → INTOOBSV 20:49 → ERHOLD 20:49 → 4TH 21:57
PROVIDERS: ADMIT Internal Medicine; ATTEND Internal Medicine
DX: N17.9 Acute kidney failure, unspecified (principal); E11.9 Type 2 diabetes mellitus without complications; G30.1 Alzheimer's disease with late onset; F02.80 Dementia in other diseases classified elsewhere, unspecified severity, without behavioral disturbance, psychotic disturbance, mood disturbance, and anxiety; I10 Essential (primary) hypertension
CPT/HCPCS: 36415 ×2; 70450; 71250; 72125; 72141; 80048 ×3; 82962 ×6; 85025 ×2; 85652; 93005; 96361; 96374; 97116; 97163; 97530; 99285; J1650 ×2; J3010; J7030 ×3; 81003; 81015; G0378

== ENCOUNTER 2018-03-26 12:49 | Inpatient (IN) | payer OTHER ==
--- OUTSIDE RECORDS SUMMARY | 2018-03-26 12:52 | XMS REPORT ---
[...] End Status Dosage System Date Date Ecotrin [facility] 76818896054 325 MG Orally Jul 05, Active 1 tablet Once a day 2019 Fexofenadine HCl [facility] 63954406435 60 MG Orally Jul 05, Active 1 tablet Once a day 2019 as needed Vitamin B-12 [facility] 32916651507 1000 MCG Orally Active 1 tablet Once a day Januvia [facility] 78091595702 100 MG Orally Active 1 tablet Once a day Folic Acid [facility] 57936307970 1 MG Orally Active 1 tablet Once a day Clopidogrel [facility] 90542176076 75 MG Orally Active 1 tablet Bisulfate Once a day Quetiapine [facility] 73551053216 100 MG Orally Active 1 tablet Fumarate Once a day Ferrous Sulfate [facility] 77672827404 325 (65 Fe) MG Inactive 1 tablet Orally Once a day Levothyroxine [facility] 54757896167 88 MCG Orally Active 1 tablet Sodium Once a day on an empty stomach in the morning Gabapentin [facility] 20730778763 100 MG Orally Active 1 capsule Three times a day GlipiZIDE [facility] 04492150136 10 MG Orally Inactive 1 tablet Twice a day Donepezil HCl [facility] 44313233882 10 MG Orally Active 1 tablet Once a day at bedtime Ranitidine HCl [facility] 99699486037 300 MG Orally Active 1 tablet Once a day Stool Softener [facility] 56210420138 100 MG Orally Active 1 capsule Once a day as needed Furosemide [facility] 69804361347 40 MG Orally Active 1 tablet Once a day Results No Known Results Summary Purpose [employer]Clinical[employer] Submission
--- OUTSIDE RECORDS SUMMARY | 2018-03-26 12:52 | XMS REPORT ---
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 type 2 diabetes mellitus Problem Other chronic pain G89.29 Active Problem Chronic kidney disease (CKD) stage N18.3 Active G3b/A1, moderately decreased glomerular filtration rate (GFR) between 30-44 mL/min/1.73 square meter and albuminuria creatinine ratio less than 30 mg/g Problem Other Alzheimer''s disease G30.8 Active Problem Type 2 diabetes mellitus without E11.9 Active complication, without long-term current use of insulin Problem Osteoporosis, unspecified M81.0 Active osteoporosis type, unspecified pathological fracture presence Assessment Pain in left shoulder M25.512 Active Assessment Neck pain M54.2 Active Problem GERD without esophagitis K21.9 Active Assessment History of right hip replacement Z96.641 Active Problem 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 Active classified elsewhere without behavioral disturbance Assessment Osteoporosis, unspecified M81.0 Active osteoporosis type, unspecified pathological fracture presence Problem Mixed hyperlipidemia E78.2 Active Medications No Known Medications Results No Known Results Summary Purpose [employer] Submission
--- OUTSIDE RECORDS SUMMARY | 2018-03-26 12:52 | XMS REPORT ---
[...] Status Dosage System Date Date Vitamin B-[address] [facility] [id number] 1000 MCG Orally Active 1 tablet Once a day Donepezil HCl [facility] 47708591403 10 MG Orally Active 1 tablet Once a day at bedtime Clopidogrel [facility] 12737483086 75 MG Orally Active 1 tablet Bisulfate Once a day Quetiapine [facility] 45902871722 100 MG Orally Active 1 tablet Fumarate Once a day Ranitidine HCl [facility] 96243614528 300 MG Orally Active 1 tablet Once a day Levothyroxine ND 82183777006 88 MCG Orally Active 1 tablet Sodium Once a day on an empty stomach in the morning Gabapentin [facility] 95014966379 100 MG Orally Active 1 capsule Three times a day Furosemide [facility] 51026738251 40 MG Orally Active 1 tablet Once a day Stool Softener [facility] 35961466749 100 MG Orally Active 1 capsule Once a day as needed Ecotrin [facility] 65280775065 325 MG Orally Jul 05, Active 1 tablet Once a day 2018uvia [facility] 93140722107 100 MG Orally Active 1 tablet Once a day Folic Acid [facility] 44622763676 1 MG Orally Active 1 tablet Once a day Fexofenadine HCl [facility] 36239801235 60 MG Orally Jul 05, Active 1 tablet Once a day 2018 as needed Results No Known Results Summary Purpose eClinicalWorks Submission
--- OUTSIDE RECORDS SUMMARY | 2018-03-26 12:52 | XMS REPORT ---
[...] osteoporosis type, unspecified pathological fracture presence Assessment Other Alzheimer''s disease G30.8 Active Assessment Neck pain M54.2 Active Problem GERD without esophagitis K21.9 Active Assessment Other chronic pain G89.29 Active Problem 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 Active classified elsewhere without behavioral disturbance Assessment Pain in left shoulder M25.512 Active Problem Mixed hyperlipidemia E78.2 Active Medications Medication Code Code Instructions Start End Status Dosage System Date Date Clopidogrel ND 27089692704 75 MG Orally Active 1 tablet Bisulfate Once a day Vitamin B-12 ND 19712361319 1000 MCG Orally Active 1 tablet Once a day Donepezil HCl [facility] 18847989199 10 MG Orally Active 1 tablet Once a day at bedtime Ecotrin ND 02193186528 325 MG Orally Jul 05, Active 1 tablet Once a day 2019 Januvia ND 29133768288 100 MG Orally Active 1 tablet Once a day Fexofenadine HCl [facility] 00538632287 60 MG Orally Jul 05, Active 1 tablet Once a day 2018 as needed Stool Softener [facility] 76526673295 100 MG Orally Active 1 capsule Once a day as needed Gabapentin [facility] 37311141693 100 MG Orally Active 1 capsule Three times a day Quetiapine [facility] 97064768569 100 MG Orally Active 1 tablet Fumarate Once a day Levothyroxine [facility] 26740744019 88 MCG Orally Active 1 tablet Sodium Once a day on an empty stomach in the morning Ranitidine HCl [facility] 33332450620 300 MG Orally Active 1 tablet Once a day Furosemide [facility] 22078960433 40 MG Orally Sept Active 1 tablet Once a day 2017 Folic Acid [facility] 76836369306 1 MG Orally Active 1 tablet Once a day Results No Known Results Summary Purpose eClinicalWorks Submission
[2018-03-26] MEDS ORDERED: ONDANSETRON 4 MG/2 ML VIAL ONE (13:06)
[2018-03-26] MEDS ORDERED: MORPHINE 4 MG/ML SYR ONE ×2 (13:06→14:33)
[2018-03-26 13:46] LABS: Absolute Lymphocytes (CBC) 1.2 K/uL (0.7-4.9); Absolute Monocytes 0.8 K/uL (0.1-1.3); Absolute Neutrophil 15.2 K/uL (1.8-8.0); Basophils % 0.5 % (0-1.3); Eosinophils % 3.9 % (0-4.4); Hematocrit 29.8 % (36.0-45.0); Lymphocytes % 6.6 % (15.3-44.8); MCH 30.5 pg (27.0-35.0); MCV 93.3 fL (80-100); MPV 10.1 fL (7.6-11.3); Monocytes % 4.5 % (3.3-12.3)
[2018-03-26 13:52] LABS: Protime INR 1.08
--- NOTE | 2018-03-26 13:56 | RAD REPORT ---
EXAM DESCRIPTION: RAD - Femur Left - 03/26/2018 1:25 pm CLINICAL HISTORY: Trauma, pain COMPARISON: None FINDINGS: AP pelvis and left femur - multiple projections are submitted. Backboard artifact is present. Multipart intratrochanteric and subtrochanteric proximal left femur fr acture is seen. No dislocation seen.
[2018-03-26 14:00] LABS: Potassium 5.1 mmol/L (3.5-5.1)
--- NOTE | 2018-03-26 14:25 | EDPHYS ---
Physician Documentation [facility] Name: Wen Aguirre Age: 82 yrs Sex: Female : 1935 Arrival Date: 03/26/2018 Time: 12:51 Bed 8 Private MD: ED Physician Dieudonne Hernández HPI: 03/26 12:55 This 82 yrs old Female presents to ER via EMS with complaints of Fall Injury. rn 12:55 Details of fall: The patient fell from an upright position, while standing. Onset: The rn symptoms/episode began/occurred just prior to arrival. Associated injuries: The patient sustained left hip and thigh. Severity of symptoms: At their worst the symptoms were moderate, in the emergency department the symptoms are unchanged. The patient has experienced a previous episode. Reports sitting, got up, fell onto buttocks, reports pain left posterior buttocks and left thigh/leg, hurts to move, given 2 doses 75mcg each of fentanyl without relief. No head injury/loc, no other complaints of pain. Denies syncope. . Historical: - Allergies: 12:58 No Known Allergies; bp - Home Meds: 12:58 furosemide 40 mg Oral tab 1 tab once daily [Active]; levothyroxine 100 mcg tab 1 tab bp once daily [Active]; ranitidine HCl 300 mg Oral cap 1 cap once daily [Active]; quetiapine 100 mg Oral tab 1 tab [Active]; Colace 100 mg oral cap 1 cap once daily [Active]; clopidogrel 75 mg Oral tab 1 tab once daily [Active]; gabapentin 100 mg Oral cap 1 caps 3 times per day [Active]; Januvia 100 mg Oral tab 1 tab once daily [Active]; glipizide 10 mg Oral tab 1 tab 2 times per day [Active]; folic acid 1 mg Oral tab 1 tab once daily [Active]; pantoprazole 40 mg Oral TbEC 1 tab once daily [Active]; Ecotrin 81 mg Oral 1 tab once daily [Active]; fexofenadine 60 mg Oral tab 1 tab 2 times per day [Active]; - PMHx: 12:58 Arthritis; Back pain; Diabetes - NIDDM; Hypertension; bp - Immunization history:: Adult Immunizations up to date. - Social history:: Smoking status: Patient/guardian denies using tobacco. - Family history:: not pertinent. - Ebola Screening: : Patient negative for fever greater than or equal to 101.5 degrees Fahrenheit, and additional compatible Ebola Virus Disease symptoms Patient denies exposure to infectious person Patient denies travel to an Ebola-affected area in the 21 days before illness onset No symptoms or risks identified at this time. - Hospitalizations: : No recent hospitalization is reported. ROS: 12:55 Constitutional: Negative for fever, chills, and weight loss, Eyes: Negative for injury, rn pain, redness, and discharge, Neck: Negative for injury, pain, and swelling, Cardiovascular: Negative for chest pain, palpitations, and edema, Respiratory: Negative for shortness of breath, cough, wheezing, and pleuritic chest pain, Abdomen/GI: Negative for abdominal pain, nausea, vomiting, diarrhea, and constipation, Back: Negative for injury and pain, MS/Extremity: + left hip and leg pain Neuro: Negative for headache, weakness, numbness, tingling, and seizure. Exam: 12:55 Constitutional: This is a well developed, well nourished patient who is awake, alert, rn appears uncomfortable and in pain. Head/Face: Normocephalic, atraumatic. Eyes: Pupils equal round and reactive to light, extra-ocular motions intact. Lids and lashes normal. Conjunctiva and sclera are non-icteric and not injected. Cornea within normal limits. Periorbital areas with no swelling, redness, or edema. Neck: trachea midline, no midline bony tenderness Cardiovascular: tachycardic, regular, no murmur Respiratory: Lungs have equal breath sounds bilaterally, clear to auscultation and percussion. No rales, rhonchi or wheezes noted. No increased work of breathing, no retractions or nasal flaring. Abdomen/GI: Soft, non-tender, with normal bowel sounds. No distension or tympany. No guarding or rebound. No evidence of tenderness throughout. Back: No spinal tenderness. MS/ Extremity: Pulses equal, no cyanosis. + tenderness left buttocks and left posterior hip region, + tenderness left mid thigh, painful ROM left leg. Neuro: Awake and alert, GCS 15, oriented to person, place, time, and situation. Cranial nerves II-XII grossly intact. Motor strength 5/5 in all extremities. Sensory grossly intact. Vital Signs: 12:58 BP 155 / 63; Pulse 60; Resp 18; Temp 97.8; Pulse Ox 98% ; Weight 72.57 kg; bp 13:41 BP 137 / 59; Pulse 67; Resp 18; Pulse Ox 100% on R/A; hj 15:48 BP 134 / 34; Pulse 66; Resp 14; Pulse Ox 100% ; bp MDM: 12:52 Patient medically screened. rn 14:22 Differential diagnosis: contusion, fracture, sprain, strain. Data reviewed: vital rn signs, nurses notes, lab test result(s), radiologic studies, plain films, and as a result, I will discharge patient. Counseling: I had a detailed discussion with the patient and/or guardian regarding: the historical points, exam findings, and any diagnostic results supporting the discharge/admit diagnosis, lab results, radiology results, the need for further work-up and treatment in the hospital. Response to treatment: the patient's symptoms have mildly improved after treatment, and as a result, I will admit patient. Admission orders: after a detailed discussion of the patient's condition and case, the admit orders are written by me. ED course: Pt with sub-intertrochanteric left femur fracture, spoke with Dr. Farrar, going out of [facility], requested admission to hospitalist, notified Dr. Sterling. . 03/26 12:53 Order name: CBC with Diff rn 03/26 12:53 Order name: Basic Metabolic Panel; Complete Time: 14:06 rn 03/26 12:53 Order name: Protime (+inr); Complete Time: 13:55 rn 03/26 12:53 Order name: Ptt, Activated; Complete Time: 13:55 rn 03/26 12:54 Order name: CBC with Automated Diff; Complete Time: 13:55 EDMS 03/26 12:53 Order name: XRAY Pelvis rn 03/26 12:53 Order name: XRAY Femur LEFT; Complete Time: 14:06 rn 03/26 14:24 Order name: Urine Dipstick--Ancillary (enter results) eb 03/26 12:53 Order name: IV Start; Complete Time: 12:58 rn 03/26 12:53 Order name: EKG; Complete Time: 12:54 rn 03/26 12:53 Order name: EKG - Nurse/Tech; Complete Time: 13:06 rn 03/26 12:53 Order name: NPO; Complete Time: 12:57 rn 03/26 14:17 Order name: Sloan; Complete Time: 14:17 aa5 Administered Medications: 12:53 Drug: morphine 4 mg Route: IVP; Site: left antecubital; hj 13:22 Follow up: Response: No adverse reaction; Pain is decreased hj 12:53 Drug: Zofran 4 mg Route: IVP; Site: left antecubital; hj 13:21 Follow up: Response: No adverse reaction; Nausea is decreased hj 14:19 Drug: NS 0.9% 500 ml Route: IV; Rate: bolus; Site: left antecubital; bp 15:50 Follow up: IV Status: Completed infusion; IV Intake: 500ml bp 14:20 CANCELLED (Duplicate Order): Rocephin - (cefTRIAXone) 1 grams IVPB once over 30 mins; rn (mix in 50 mL NS) 14:29 Drug: morphine 4 mg Route: IVP; Site: left antecubital; bp 15:49 Follow up: Response: Pain is decreased bp Disposition: 03/26/18 14:25 Hospitalization ordered by Edy Sterling for Inpatient Admission. Preliminary diagnosis is Displaced intertrochanteric fracture of left femur. - Bed requested for Telemetry/MedSurg (Inpatient). - Status is Inpatient Admission. bp - Condition is Stable. - Problem is new. - Symptoms have improved. UTI on Admission? No Signatures: Dispatcher [employer] EDMS Dieudonne Hernández MD MD rn Calderon, Audri RN RN aa5 Nicola Sylvester RN RN hj Peltier, Brian, RN RN bp Botello, Elizabeth eb Corrections: (The following items were deleted from the chart) 14:20 14:20 Rocephin - (cefTRIAXone) 1 grams IVPB once over 30 mins; (mix in 50 mL NS) rn ordered. rn 14:20 14:20 Urine Culture ordered. EDMN EDMN 15:14 14:25 Hospitalization Ordered by Edy Sterling MD for Inpatient Admission. Preliminary eb diagnosis is Displaced intertrochanteric fracture of left femur. Bed requested for Telemetry/MedSurg (Inpatient). Status is Inpatient Admission. Condition is Stable. Problem is new. Symptoms have improved. UTI on Admission? No. rn 16:09 15:14 03/26/2018 14:25 Hospitalization Ordered by Edy Sterling MD for Inpatient bp Admission. Preliminary diagnosis is Displaced intertrochanteric fracture of left femur. Bed requested for Telemetry/MedSurg (Inpatient). Status is Inpatient Admission. Condition is Stable. Problem is new. Symptoms have improved. UTI on Admission? No. eb
--- NOTE | 2018-03-26 14:25 | ER ---
Nurse's Notes [facility] Name: Wen Aguirre Age: 82 yrs Sex: Female : 1935 Arrival Date: 03/26/2018 Time: 12:51 Bed 8 Private MD: Diagnosis: Displaced intertrochanteric fracture of left femur Presentation: 03/26 12:53 Presenting complaint: EMS states: FALL AT HOME. Transition of care: patient was not bp received from another setting of care. Onset of symptoms is unknown. Risk Assessment: Do you want to hurt yourself or someone else? Patient reports no desire to harm self or others. Initial Sepsis Screen: Does the patient meet any 2 criteria? No. Patient's initial sepsis screen is negative. Does the patient have a suspected source of infection? No. Patient's initial sepsis screen is negative. Care prior to arrival: Placed on backboard. IV initiated. 20 GA, in the left antecubital area. 12:53 Method Of Arrival: EMS: [facility] bp 12:53 Acuity: ELSA 3 bp Triage Assessment: 12:58 General: Appears distressed, uncomfortable, obese, Behavior is cooperative, appropriate bp for age, anxious. Pain: Complains of pain in left lower back and left quadriceps. EENT: No deficits noted. Neuro: Level of Consciousness is awake, alert, obeys commands, Oriented to person, place, time, situation, Appropriate for age. Cardiovascular: No deficits noted. Respiratory: Airway is patent Respiratory effort is even, unlabored, Respiratory pattern is regular, symmetrical. GI: No signs and/or symptoms were reported involving the gastrointestinal system. Derm: Skin is healthy with good turgor, is thin. Musculoskeletal: Circulation, motion, and sensation intact. Range of motion: limited in left hip. Historical: - Allergies: 12:58 No Known Allergies; bp - Home Meds: 12:58 furosemide 40 mg Oral tab 1 tab once daily [Active]; levothyroxine 100 mcg tab 1 tab bp once daily [Active]; ranitidine HCl 300 mg Oral cap 1 cap once daily [Active]; quetiapine 100 mg Oral tab 1 tab [Active]; Colace 100 mg oral cap 1 cap once daily [Active]; clopidogrel 75 mg Oral tab 1 tab once daily [Active]; gabapentin 100 mg Oral cap 1 caps 3 times per day [Active]; Januvia 100 mg Oral tab 1 tab once daily [Active]; glipizide 10 mg Oral tab 1 tab 2 times per day [Active]; folic acid 1 mg Oral tab 1 tab once daily [Active]; pantoprazole 40 mg Oral TbEC 1 tab once daily [Active]; Ecotrin 81 mg Oral 1 tab once daily [Active]; fexofenadine 60 mg Oral tab 1 tab 2 times per day [Active]; - PMHx: 12:58 Arthritis; Back pain; Diabetes - NIDDM; Hypertension; bp - Immunization history:: Adult Immunizations up to date. - Social history:: Smoking status: Patient/guardian denies using tobacco. - Family history:: not pertinent. - Ebola Screening: : Patient negative for fever greater than or equal to 101.5 degrees Fahrenheit, and additional compatible Ebola Virus Disease symptoms Patient denies exposure to infectious person Patient denies travel to an Ebola-affected area in the 21 days before illness onset No symptoms or risks identified at this time. - Hospitalizations: : No recent hospitalization is reported. Screenin:05 Abuse screen: Denies threats or abuse. Denies injuries from another. Nutritional bp screening: No deficits noted. Tuberculosis screening: No symptoms or risk factors identified. Fall Risk Fall in past 12 months (25 points). Secondary diagnosis (15 points) impaired mobility, IV access (20 points). Ambulatory Aid- None/Bed Rest/Nurse Assist (0 pts). Gait- Normal/Bed Rest/Wheelchair (0 pts) Mental Status- Oriented to own ability (0 pts). Assessment: 13:04 General: 82YO HF S/P FALL x2 AT HOME, NOW WITH LEFT HIP/FEMUR PAIN. bp 13:41 Reassessment: provider in room for result and POC;. hj Vital Signs: 12:58 BP 155 / 63; Pulse 60; Resp 18; Temp 97.8; Pulse Ox 98% ; Weight 72.57 kg; bp 13:41 BP 137 / 59; Pulse 67; Resp 18; Pulse Ox 100% on R/A; hj 15:48 BP 134 / 34; Pulse 66; Resp 14; Pulse Ox 100% ; bp ED Course: 12:51 Patient arrived in ED. hj 12:52 Dieudonne Hernández MD is Attending Physician. rn 12:53 John Albright RN is Primary Nurse. bp 12:54 Triage completed. bp 13:02 Arm band placed on. bp 13:04 Maintain EMS IV. Dressing intact. Good blood return noted. Site clean \T\ dry. Gauge \T\ bp site: 20 GAUGE LEFT AC. 13:05 Patient has correct armband on for positive identification. Bed in low position. Call bp light in reach. Side rails up X2. Adult w/ patient. 13:08 EKG done, by computer aided design technician. reviewed by Dieudonne Hernández MD. at1 13:22 X-ray completed. Portable x-ray completed in exam room. Patient tolerated procedure sw well. 13:23 XRAY Pelvis In Process Unspecified. EDMS 13:23 XRAY Femur LEFT In Process Unspecified. EDMS 14:17 Lisa cath inserted, using sterile technique, 16 Fr., by me, balloon inflated, to aa5 gravity drainage, urine specimen collected. 14:24 Edy Sterling MD is Hospitalizing Provider. rn 15:48 No provider procedures requiring assistance completed. Patient admitted, IV remains in bp place. Administered Medications: 12:53 Drug: morphine 4 mg Route: IVP; Site: left antecubital; hj 13:22 Follow up: Response: No adverse reaction; Pain is decreased hj 12:53 Drug: Zofran 4 mg Route: IVP; Site: left antecubital; hj 13:21 Follow up: Response: No adverse reaction; Nausea is decreased hj 14:19 Drug: NS 0.9% 500 ml Route: IV; Rate: bolus; Site: left antecubital; bp 15:50 Follow up: IV Status: Completed infusion; IV Intake: 500ml bp 14:20 CANCELLED (Duplicate Order): Rocephin - (cefTRIAXone) 1 grams IVPB once over 30 mins; rn (mix in 50 mL NS) 14:29 Drug: morphine 4 mg Route: IVP; Site: left antecubital; bp 15:49 Follow up: Response: Pain is decreased bp Intake: 15:50 IV: 500ml; Total: 500ml. bp Outcome: 14:25 Decision to Hospitalize by Provider. rn 15:47 Admitted to Med/surg accompanied by tech, family with patient, via stretcher, room 206, bp with chart, Report called to FARA ORELLANA 15:47 Condition: stable 15:47 Instructed on the need for admit. 16:09 Patient left the ED. bp Signatures: Dispatcher [employer] EDMS Dieudonne Hernández MD MD rn Calderon, Audri, RN RN aa5 Ivone Adames, grape picker EKG Tat1 Norma Cook Henry, RN RN hj John Albright, RN RN bp
[2018-03-26] MEDS ORDERED: ONDANSETRON 4 MG/2 ML VIAL IV PRN (14:51)
[2018-03-26] MEDS ORDERED: ACETAMINOPHEN 500 MG TAB PO PRN (14:51)
[2018-03-26] MEDS: INSULIN -REGULAR HUMAN 50 UNIT/0.5 ML ML SQ SCH ×2 (16:30→20:59)
--- NOTE | 2018-03-26 16:46 | EKG ---
Test Date: 2018-03-26 Test Time: 13:03:[address] Sql Developer: WESLTEY MEASUREMENT RESULTS: Intervals: Rate: 65 MS: 174 QRSD: 128 QT: 436 QTc: 453 [place]: P: 59 MS: 174 QRS: 30 T: 39 INTERPRETIVE STATEMENTS: Normal sinus rhythm Right bundle branch block Abnormal ECG Compared to ECG 02/16/2018 13:48:33 Myocardial infarct finding no longer present Electronically Signed On 03-26-18 16:44:28 CDT by Toby Ames
[2018-03-26 17:03] VITALS: BMI 31.1
[2018-03-26] MEDS: NA CHLORIDE 0.9% 1,000 ML IV SCH (17:33)
[2018-03-26 17:43] LABS: Urine Blood NEGATIVE (NEG); Urine Glucose NEGATIVE (NEG); Urine Protein 1+ (NEG); Urine Specific Gravity 1.015 (1.005-1.030)
[2018-03-26] MEDS: MORPHINE 4 MG/ML SYR IV PRN (18:52)
--- NOTE | 2018-03-26 19:55 | RAD REPORT ---
EXAM DESCRIPTION: RAD - Pelvis - 03/26/2018 1:25 pm CLINICAL HISTORY: Trauma, pain COMPARISON: None FINDINGS: AP pelvis and left femur - multiple projections are submitted. Backboard artifact is present. Multipart intratrochanteric and subtrochanteric proximal left femur fr acture is seen. No dislocation seen.
[2018-03-26] MEDS: GABAPENTIN 100 MG CAP PO SCH (21:40)
[2018-03-26] MEDS: QUETIAPINE 100MG TAB PO SCH (21:40)
--- NOTE | 2018-03-27 02:58 | HP ---
Date of Admission: 03/26/2018 Primary Care Physician: Alessandro Farrar M.D. Hospitalist service covering for Dr. Farrar while he is o [facility]. Consultants: Dr. Kwok with Orthopedic Surgery. Code Status: Full. Chief Complaint: Mechanical fall, left hip fracture. History Of Present Illness: The patient is an 82-year-old female with past medical history of diabet es, generalized osteoarthritis, chronic back pain, hypertension, and chronic kidney disease, who was in her usual state of health until this morning, when she was trying to get up from the breakfast tab le and go sit in the living room when she had a mechanical fall and fell on her left side. The patie nt does have some moderate pain which is nonradiating, worse with movement. The patient was unable t o get up and needed assistance with the EMS. The patient denies any nausea, vomiting, fever, chills. Denies hitting her head. No syncopal episodes. No seizure-type activity. The daughter did not wi tness the fall, however, did hear her fall and yell out and was there voluntarily. The patient was d own for approximately 30 minutes by the time EMS came and brought her to the ER. Upon arrival, her v ital signs were stable, she was afebrile. Her workup did reveal an elevated white count of 17,000. Her creatinine is around baseline of 1.7. UA is pending. Her imaging studies did show a left hip fr acture. Of note, the patient has taken her Plavix yesterday afternoon, did not take Plavix on the da y of admission. The patient was referred for admission for further evaluation and treatment. When s een, she was awake, alert, oriented x3, in some mild distress due to pain. Communication was done us ing interpretive services using cultural link on the second floor. Past Medical History: Hypertension; generalized osteoarthritis; chronic back pain; diabetes, non-ins ulin dependent; chronic kidney disease; hyperlipidemia. Past Surgical History: The patient has had no significant surgical history. Allergies: NO KNOWN DRUG ALLERGIES. Medications: List reviewed. Social History: The patient denies any smoking, alcohol use, or illicit drug use. Lives at home wit h daughter. Family History: No history of premature coronary artery disease. Review of Systems: Ten point system reviewed, negative except as per HPI. Physical Examination: Vital Signs: Temperature 97.8, heart rate 60, blood pressure 155/63, respirations 18, O2 98% on room air. General: Awake, alert, oriented x3. Elderly female, obese, in some mild distress due to pain. HEENT: Normocephalic, atraumatic. PERRLA. EOMI. Moist mucous membranes. Oropharynx is clear. Co njunctivae anicteric. Poor dentition. CV: S1, S2. No murmurs. Regular rate and rhythm. Peripheral pulses present bilaterally. Respiratory: Clear to auscultation bilaterally. No wheezing or stridor. No use of accessory muscle s. Gastrointestinal: Abdomen is soft, nontender, nondistended. Positive bowel sounds. No guarding or rigidity. No hepatosplenomegaly. Extremities: No clubbing, cyanosis, or edema. No calf tenderness. Musculoskeletal: The patient does have some tenderness to palpation in the left hip, limited range o f motion due to pain, length is shortened, externally rotated. Neuro: Cranial nerves 2 through 12 intact grossly. No focal neurological deficit. Limited assessme nt of the left lower extremity due to pain, however, is able to wiggle her toes and foot. Sensation is intact to light touch. Speech is normal. The patient does have ptosis on the right eye which is chronic from her previous stroke. Skin: No rashes. Normal skin turgor. Laboratory Data: Sodium 141, potassium 5.1, chloride 109, CO2 27, BUN 34, creatinine 1.7, glucose 22 1, calcium 8.3, INR 1.08. WBC 17.9, H and H 9.8 and 29.8, platelets 304, neutrophils 84%. UA is pen ding. X-ray of the left femur shows multipart intertrochanteric and subtrochanteric proximal left fe mur fracture seen. No dislocation. Assessment And Plan: An 82-year-old female with: 1.Status post mechanical fall. 2.Left hip fracture. We will place the patient on bedrest with fall precautions. Dr. Kwok with [facility] has been consulted. The patient, however, has taken her Plavix yesterday. We will have to wait until likely on Friday to proceed with surgery unless more surgically emergent. Other than ch ronic kidney disease and mild systemic disease with hypertension and diabetes, the patient is stable for surgery. 3.Diabetes mellitus type 2, non-insulin requiring with hyperglycemia. We will continue sliding scal e insulin and resume home medications as appropriate. 4.Chronic kidney disease, stage 2. Creatinine at baseline. 5.Generalized osteoarthritis. 6.Chronic back pain. 7.Essential hypertension, stable. 8.History of cerebrovascular accident, on Plavix which will be held. 9.Hypothyroidism. Continue Synthroid. 10.Hyperlipidemia, mixed. Continue statin. Admit the patient to Med-Surg, place as inpatient. Will anticipate surgery in the next few days. PAULINE Voice ID: [id number]
[2018-03-27] MEDS: MORPHINE 4 MG/ML SYR IV PRN ×3 (05:00→16:24)
[2018-03-27 05:31] LABS: Absolute Lymphocytes (CBC) 2.2 K/uL (0.7-4.9); Absolute Monocytes 0.5 K/uL (0.1-1.3); Absolute Neutrophil 7.2 K/uL (1.8-8.0); Basophils % 0.7 % (0-1.3); Eosinophils % 5.8 % (0-4.4); Hematocrit 29.4 % (36.0-45.0); MCH 31.4 pg (27.0-35.0); MCV 93.6 fL (80-100); MPV 10.6 fL (7.6-11.3); Monocytes % 4.6 % (3.3-12.3); RBC Red Blood Cell Count 3.15 M/uL (3.86-4.86)
[2018-03-27 05:48] LABS: Albumin 2.8 g/dL (3.4-5.0); Bilirubin Total 0.3 mg/dL (0.2-1.0); Potassium 4.5 mmol/L (3.5-5.1); Protein, Total 6.6 g/dL (6.4-8.2)
[2018-03-27] MEDS: DOCUSATE NA 100 MG CAP PO SCH (08:59)
[2018-03-27] MEDS: PANTOPRAZOLE 40MG TABLET PO SCH (08:59)
[2018-03-27] MEDS: FUROSEMIDE 40 MG TABLET PO SCH (08:59)
[2018-03-27] MEDS: FEXOFENADINE HCL 60 MG PO SCH (09:00)
[2018-03-27] MEDS: FOLIC ACID 1 MG TABLET PO SCH (09:00)
[2018-03-27] MEDS: GABAPENTIN 100 MG CAP PO SCH ×2 (09:00→22:36)
[2018-03-27] MEDS: LEVOTHYROXINE SOD 0.088 MG TAB PO SCH (09:05)
[2018-03-27] MEDS: INSULIN -REGULAR HUMAN 50 UNIT/0.5 ML ML SQ SCH ×4 (09:06→22:36)
--- NOTE | 2018-03-27 11:06 | RAD REPORT ---
EXAM DESCRIPTION: RAD - Chest Single View - 03/27/2018 10:51 am CLINICAL HISTORY: pre-op Chest pain. COMPARISON: Chest Single View dated 10/20/2017 FINDINGS: Portable technique limits examination quality. A moderate-sized airspace opacity is present in the right lung base likely representing pneumonia/asp iration. The heart is normal in size. Sternotomy wires present. IMPRESSION: Airspace opacity in the right lung base likely represents pneumonia/ aspiration.
--- NOTE | 2018-03-27 11:07 | RAD REPORT ---
EXAM DESCRIPTION: RAD - Shoulder Right 2 View - 03/27/2018 10:53 am CLINICAL HISTORY: pain COMPARISON: Shoulder Right 2 View dated 10/20/2017 FINDINGS: Mild AC joint and glenohumeral joint arthritic changes are present. No acute fracture disl ocation. Moderate airspace opacity in the right lung base likely represents pneumonia or aspiration. 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 No displaced rib fracture. IMPRESSION: No acute fracture or dislocation seen. Moderate airspace opacity in right lung base likely represents pneumonia or aspiration.
[2018-03-27] MEDS: NA CHLORIDE 0.9% 1,000 ML IV SCH (11:37)
[2018-03-27] MEDS: CEFTRIAXONE/SWI 1gm 1 GM/10 ML SYR IV SCH (12:40)
[2018-03-27] MEDS: AZITHROMYCIN IV 500 MG in NA CHLORIDE 0.9% 250 ML IVPB SCH (13:46)
--- NOTE | 2018-03-27 17:32 | PN ---
Date of Progress Note: 03/27/2018 Subjective: The patient seen and examined. Chart reviewed and case discussed with RN and Dr. Kwok. The patient still having some pain in her lower extremity. Awaiting surgery on Friday. Having ec hocardiogram done today. Review of Systems: Negative except as above. Medications: List reviewed. Physical Examination: Vital Signs: Temperature 100, heart rate 90, blood pressure 140/92, respirations 20, O2 93% on room air. General: Awake, alert, oriented x3, in some mild distress due to pain. Elderly female, obese. CV: S1, S2. Regular rate and rhythm. Peripheral pulses present. Respiratory: Moving air well bilaterally. No wheezing. Gastrointestinal: Abdomen is soft, nontender, nondistended. Positive bowel sounds. Extremities: No clubbing, cyanosis, or edema. Musculoskeletal: Pain in the left hip. Decreased range of motion. Neurologic: Nonfocal. Laboratory Data: Sodium 143, potassium 4.5, chloride 112, CO2 24, BUN 31, creatinine 1.4, glucose 16 3, calcium 7.9. WBC 10.6, H and H 9.9 and 29.4, platelets 283. Shoulder x-ray shows no acute fractu re or dislocation. Moderate airspace opacity in the right lung base likely represents pneumonia or a spiration. Chest x-ray personally reviewed shows air base opacity in the right lung base representin g pneumonia or aspiration. Assessment And Plan: An 82-year-old female with: 1.Status post mechanical fall. 2.Left hip fracture. Appreciate Dr. Kwok's input. Likely go for surgery in a.m. Echocardiogram be ing done today for cardiac clearance. Appreciate Dr. Ames's input. The patient's last dose of Pl avix was the day prior to admission. 3.Diabetes mellitus type 2, non-insulin requiring with hyperglycemia. We will continue sliding scal e insulin. Monitor BBG. 4.Right lung base pneumonia. We will continue Rocephin and azithromycin. Obtain blood cultures and sputum cultures. 5.Chronic kidney disease stage 2, stable. Monitor creatinine. 6.Generalized osteoarthritis. Shoulder x-ray does not show any acute fractures from the fall. 7.Chronic back pain, midline, without sciatica. 8.Essential hypertension, stable. 9.History of cerebrovascular accident. Plavix held. 10.Hypothyroidism. Continue Synthroid. 11.Hyperlipidemia. Continue statin. /MODL Voice ID: [id number] Report ID: [id number]
--- NOTE | 2018-03-27 18:02 | CON ---
Date of Consultation: 03/27/2018 Additional Consulting Physician: Dr. Jann Kwok. Reason For Consultation: Left hip pain. History Of Present Illness: Ms. Carver is an 82-year-old female with past medical history of diabe maria guadalupe, hypertension, chronic kidney disease, who presented with her left hip pain after a fall yesterda y. X-rays in the emergency room demonstrated a left pertrochanteric femur fracture. After the fall, she was not able to bear weight. Speaking with her daughter and the patient, the patient does not a mbulate very much and when she does she uses an assist device like a walker. She does report some mi ld right shoulder pain. She denies any other musculoskeletal complaints at this time. The patient h as history of using Plavix, the last dose being on Friday afternoon. Review of Systems: As above, otherwise negative. Past Medical History: Includes hypertension, generalized osteoarthritis, chronic back pain, diabetes , chronic kidney disease, hyperlipidemia. Past Surgical History: Includes right hip arthroplasty. Allergies: NO KNOWN DRUG ALLERGIES. Social History: Denies tobacco, alcohol, or drug use. Lives with her daughter at home. Family History: Reviewed and noncontributory. Physical Examination: General: No apparent distress. HEENT: Normocephalic, atraumatic. Neck: Supple. Cardiovascular: Brisk cap refill to all digits. Chest: Nonlabored breathing. Abdomen: Nondistended. Psychiatric: Response to exam. Musculoskeletal: Left lower extremity pain with range of motion of the left hip. Tenderness to palp ation over the left hip. No tenderness to palpation of the knee, vieira, or ankle. Right lower extrem ity functional range of motion without pain. No gross deformities. No obvious dislocations. Right upper extremity, mild tenderness to palpation over the right shoulder. No pain with internal or exte rnal rotation of the right shoulder. No pain with range of motion of the elbow. Left upper extremit y, functional range of motion without pain. No gross deformities. No obvious dislocations. X-rays: X-rays of the left femur demonstrate an intertrochanteric femur fracture with some reverse o bliquity component. Assessment And Plan: Ms. Carver is an an 82-year-old female with a left intertrochanteric femur fr acture and right shoulder pain. We will follow up with x-rays of her right shoulder. In regard to h er left femur, there is an unstable hip fracture. I recommend a surgical fixation with intramedullar y nail. I discussed with the case with Dr. Sterling, and with her history of Plavix use, he states that she should be okay to proceed with surgery on Friday. She will be n.p.o. after midnight and will proceed with surgery tomorrow. Dr. Sterling will continue to manage the patient medically. CV/MODL Voice ID: [id number] Report ID: [id number]
[2018-03-27] MEDS: ATORVASTATIN 20 MG TAB PO SCH (22:36)
[2018-03-27] MEDS: QUETIAPINE 100MG TAB PO SCH (22:36)
[2018-03-28 05:27] LABS: Absolute Lymphocytes (CBC) 1.9 K/uL (0.7-4.9); Absolute Monocytes 0.8 K/uL (0.1-1.3); Absolute Neutrophil 13.6 K/uL (1.8-8.0); Basophils % 0.4 % (0-1.3); Eosinophils % 3.2 % (0-4.4); Hematocrit 27.3 % (36.0-45.0); Lymphocytes % 11.5 % (15.3-44.8); MCH 30.7 pg (27.0-35.0); MCV 93.2 fL (80-100); MPV 10.7 fL (7.6-11.3); Monocytes % 4.6 % (3.3-12.3); RBC Red Blood Cell Count 2.93 M/uL (3.86-4.86)
[2018-03-28] MEDS: MORPHINE 4 MG/ML SYR IV PRN ×2 (05:28→21:14)
[2018-03-28] MEDS: NA CHLORIDE 0.9% 1,000 ML IV SCH ×2 (05:29→18:26)
[2018-03-28 05:44] LABS: Albumin 2.6 g/dL (3.4-5.0); Bilirubin Total 0.4 mg/dL (0.2-1.0); Potassium 4.1 mmol/L (3.5-5.1); Protein, Total 6.3 g/dL (6.4-8.2)
[2018-03-28] MEDS: INSULIN -REGULAR HUMAN 50 UNIT/0.5 ML ML SQ SCH ×4 (07:30→21:10)
--- NOTE | 2018-03-28 08:06 | CON ---
Date of Consultation: 03/27/2018 Reason For Consultation: Cardiac clearance for left hip surgery. History Of Present Illness: Ms. Amandeep Aguirre is an 82-year-old woman, who has a history of CVA in the past, dyslipidemia, hypertension, and diabetes. She has a history of gastroesophageal reflux di sease and hypothyroidism. Has no cardiac history and no cardiac symptoms. Fell and broke her left h ip. There are plans for surgery. Allergies: NONE. Review of Systems: Negative. Social History: Negative. Family History: Negative. Medications: At home include aspirin, Plavix, Lasix, Glucotrol, thyroid, Protonix, lovastatin, Seroq uel, and Januvia. Physical Examination: General: She is in normal rhythm. Vital Signs: Stable, afebrile. HEENT: Negative. Neck: Supple. No bruit. Chest: Clear. Cardiac Exam: Revealed a regular rhythm and rate. No murmurs, gallops, or rubs. Abdomen: Benign. Extremities: Revealed no clubbing, cyanosis, or edema. Diagnostic Data: Creatinine is 1.4. EKG showed right bundle-branch block. Hemoglobin 9.9. Chest x -ray is negative. Glucose is 163. Impression And Plan: 1.The patient with left femoral fracture, status post fall. No syncope. No cardiac symptoms. Norm al cardiac exam. Echocardiogram, which was done, was also within normal limit. Her EKG showed chron ic right bundle-branch block. I think she is at low risk for perioperative mortality. 2.Mild renal insufficiency. 3.Mild anemia. 4.Diabetes. 5.Hypertension. 6.Hypothyroidism. 7.Gastroesophageal reflux disease. 8.Dyslipidemia. 9.History of cerebrovascular accident, on aspirin and Plavix. I feel comfortable doing the surgery on Friday after holding the Plavix for a few days. I will discuss the case further with Dr. Sterling. I will be available for questions if the need arise postoperatively. YULISSA/JESENIA Voice ID: [id number] Report ID: [id number]
[2018-03-28] MEDS ORDERED: LIDOCAINE 2% MPF 5 ML VIAL ONE (08:55)
[2018-03-28] MEDS ORDERED: FENTANYL CITR 250 MCG/5 ML ONE (08:55)
[2018-03-28] MEDS ORDERED: PROPOFOL 200 MG/20 ML VIAL IV ONE (08:55)
[2018-03-28] MEDS: GABAPENTIN 100 MG CAP PO SCH ×2 (09:00→21:11)
[2018-03-28] MEDS: PANTOPRAZOLE 40MG TABLET PO SCH (09:00)
[2018-03-28] MEDS: LEVOTHYROXINE SOD 0.088 MG TAB PO SCH (09:00)
[2018-03-28] MEDS: FEXOFENADINE HCL 60 MG PO SCH (09:00)
[2018-03-28] MEDS: CEFTRIAXONE/SWI 1gm 1 GM/10 ML SYR IV SCH (09:00)
[2018-03-28] MEDS: AZITHROMYCIN IV 500 MG in NA CHLORIDE 0.9% 250 ML IVPB SCH (09:00)
[2018-03-28] MEDS: DOCUSATE NA 100 MG CAP PO SCH (09:00)
[2018-03-28] MEDS: FUROSEMIDE 40 MG TABLET PO SCH (09:00)
[2018-03-28] MEDS: FOLIC ACID 1 MG TABLET PO SCH (09:00)
[2018-03-28] MEDS ORDERED: NA CHLORIDE 0.9% 1,000 ML ONE (09:20)
[2018-03-28] MEDS ORDERED: ONDANSETRON HCL 40 MG/20 ML VIAL ONE (09:40)
[2018-03-28] MEDS ORDERED: EPHEDRINE SULF 50 MG/10 ML SYR ONE (09:40)
[2018-03-28] MEDS ORDERED: Phenylephrine HCl 10 MG/ML 1 ML VIAL ONE (09:42)
[2018-03-28] MEDS ORDERED: NS 0.9% VIAL 10 ML ONE (09:43)
--- NOTE | 2018-03-28 10:45 | P.BOP ---
Preoperative diagnosis: left hip intertrochanteric femur fracture Postoperative diagnosis: same Primary procedure: Cephallomedullary fixation of left intertrochanteric femur fracture Career Specialist: NONE,NONE Estimated blood loss: 100 cc Specimen: none Findings: see dictation Anesthesia: General Complications: None Drain(s): Urinary catheter Implants: 9x180 mm 125 degree Biomet hip nail; 90 mm lag screw Fluids & blood products: per anesthesia record Transferred to: Recovery Room Condition: Good
[2018-03-28] MEDS ORDERED: GLUCAGON 1 MG/VIAL IM PRN (10:53)
[2018-03-28] MEDS ORDERED: D50W 25 GM/50 ML SYRINGE IV PRN (10:53)
--- NOTE | 2018-03-28 11:52 | RAD REPORT ---
EXAM DESCRIPTION: RAD - Hip Left 2 View - 03/28/2018 11:41 am CLINICAL HISTORY: Left femoral fracture FINDINGS: Intramedullary niall and compression screw affix a proximal left femoral fracture in good a lignment
--- NOTE | 2018-03-28 12:12 | PN ---
History: The patient is doing well today. There is no issue overnight. She is on her way to the OR for her hip surgery. No fever. No chills. No night sweats. No dizziness or lightheadedness. Review of Systems: Otherwise negative. Medications: Reviewed. Physical Examination: Vital Signs: Today, blood pressure is 143/65, respiratory rate 20, pulse is 80, temperature 98.8, sa turating 98% on room air. General: She is fully alert, oriented x3. Does not look in any distress. HEENT: Atraumatic, normocephalic. PERRLA mucosa is moist. Neck: Supple. No JVD. Chest: Clear to auscultation. No wheezing. Heart: Regular rate and rhythm. S1, S2 normal. No gallop or murmur. Abdomen: Soft, nontender. No masses. No hepatosplenomegaly. Positive bowel sounds. Extremities: No clubbing, cyanosis, or edema. No calf tenderness. Neurologic: Grossly intact. Musculoskeletal: Deferred. The patient has pain in the left hip. Laboratory Data: Today, CBC showed white blood cells of 17, hemoglobin 9, and platelets 229. Chemis try within normal except for BUN of 23, creatinine of 1.4, GFR of 36, glucose 167 to 238, Albumin 2.6 . Calcium 7.6. Assessment And Plan: 1.This is an 82-year-old female with fall status post total left hip fracture. She is going to the OR today for open reduction and internal fixation. 2.EKG showed right bundle branch block. An echocardiogram was normal. We will keep the Plavix and on hold for now and patient will receive surgery today. 3.Type 2 diabetes mellitus, not well controlled. She is on insulin sliding scale. I will add 5 uni ts of Lantus. 4.Hypothyroidism. She is on Synthroid. 5.Right lung base pneumonia. White blood cells are up again. Culture so far inconclusive as she is on ceftriaxone and Zithromax. There is no fever. Blood culture was not done. 6.Chronic renal insufficiency, observe. 7.Chronic back pain without sciatica symptomatic treatment. 8.Hypertension, controlled. 9.History of cerebrovascular accident. We will keep Plavix on hold given surgery. 10.Hyperlipidemia. Continue statin. 11.Most likely, discharge will be to Rehab. DUSTIN/JESENIA Voice ID: [id number] Report ID: [id number]
[2018-03-28] MEDS: HYDROCODONE/APAP 7.5/325 MG TAB PO PRN (13:20)
[2018-03-28 13:30] LABS: Hematocrit 26.9 % (36.0-45.0)
[2018-03-28] MEDS ORDERED: INSULIN GLARGINE 100 UNITS/ML SQ SCH (21:00)
[2018-03-28] MEDS: ATORVASTATIN 20 MG TAB PO SCH (21:11)
[2018-03-28] MEDS: QUETIAPINE 100MG TAB PO SCH (21:11)
--- NOTE | 2018-03-28 22:27 | OP ---
Date of Procedure: 03/28/2018 Surgeon: Jann Kwok MD Preoperative Diagnosis: Left intertrochanteric femur fracture. Postoperative Diagnosis: Left intertrochanteric femur fracture. Procedure Performed: Cephalomedullary fixation of left intertrochanteric femur fracture. Anesthesia: General LMA. Fluids: Per Anesthesia record. Ebl: 100 cc. Implants: A 9 x 180 mm Biomet hip nail, 125-degree; and a 90 mm lag screw. Complications: None. Indication For Procedure: Ms. Carver is an 82-year-old female, who presented to the ER after a fall with subsequent left hip pain. X-rays demonstrated a left intertrochanteric femur fracture. I discussed with the patient at length the risks and benefits associated with operative and nonoperative treatment. The patient and her daughter expressed understanding and elected to proceed with operative treatment. Description Of Procedure: After informed consent was obtained, the patient was identified in the preoperative holding area. The left lower extremity was marked. The patient was then taken back to the operating room, transferred to the operating table in supine fashion, placed under general LMA anesthesia. She was placed on the fracture table with her extremities well padded. The left hip was then evaluated under fluoroscopy, and the leg was put into position to achieve the reduction of the hip fracture. Once proper reduction was obtained, the left lower extremity was then prepped and draped in usual sterile fashion. A time-out was initiated. The correct patient and procedure were confirmed and identified. The patient was receiving antibiotics on the floor and also given to the patient preoperatively. An approximately 5 cm incision made just proximal to the greater trochanter for placement of the guidewire. Under fluoroscopic guidance, the guidewire was then placed on the tip of the greater trochanter and placed down the femoral canal in an antegrade fashion. Once in proper position, it was checked with fluoroscopy, both AP and lateral views. This was then over-reamed with an entry reamer. After this was completed, a ball-tip guidewire was then introduced down the femoral canal down to the distal femur. Using preoperative measurement, a size 9 nail was selected as well as 125 degrees, and this was placed over the guidewire into position. There was overall good reduction of the fracture fragments. Once at a proper depth as confirmed using fluoroscopy, the triple sleeve was then placed through the jig for placement of the lag screw. An approximately 3 cm incision was made over the lateral thigh for placement of triple sleeve down to the sides of the lateral femur. Guide pin was then introduced into the femoral head into a center-center position as confirmed with fluoroscopy. Once we were at the proper depth that was measured, a size 90 mm lag screw was selected. The pin was then overdrilled, and a 95 mm lag screw was placed into proper position. Proper position was confirmed using fluoroscopy. The lag screw was then locked into position, and using the jig, an interlocking screw was placed distally, and a size 32 mm interlocking screw was selected. It was placed in bicortical fashion. The jig was then removed. Final x-rays were taken. The wound was then irrigated thoroughly with normal saline. Deep tissue was approximated using 0 Vicryl. The subcutaneous tissue was approximated using a 2 -0 Vicryl, and skin was approximated using luz marina. Sterile dressing were applied. X-rays were taken of the right hip at the end of the procedure to ensure no dislocation or hemiarthroplasty during positioning. This was confirmed. Postoperative Plan: She will be weightbearing as tolerated on her left lower extremity. Physical therapy will be consulted to aid in mobilization. Dr. Sterling of the hospitalist group will continue to manage the patient medically and we will follow up with her H and H. AARTI/JESENIA Voice ID: [id number] Report ID: [id number] JACQUI
[2018-03-29 05:56] LABS: Albumin 2.2 g/dL (3.4-5.0); Bilirubin Total 0.3 mg/dL (0.2-1.0); Potassium 4.5 mmol/L (3.5-5.1); Protein, Total 5.9 g/dL (6.4-8.2)
[2018-03-29 06:04] LABS: Absolute Monocytes 0.8 K/uL (0.1-1.3); Absolute Neutrophil 8.9 K/uL (1.8-8.0); Basophils % 0.7 % (0-1.3); Eosinophils % 5.4 % (0-4.4); Hematocrit 25.7 % (36.0-45.0); MCH 29.9 pg (27.0-35.0); MCV 92.6 fL (80-100); MPV 11.2 fL (7.6-11.3); Monocytes % 6.1 % (3.3-12.3); RBC Red Blood Cell Count 2.77 M/uL (3.86-4.86)
--- NOTE | 2018-03-29 07:50 | P.PN ---
Subjective Date of Service: 03/29/18 Chief Complaint: s/p left hip nail Subjective: No new changes Pain controlled. Physical Examination - Vital Signs Temperature: 97.5 F Blood Pressure: 143/60 Pulse: 89 Respirations: 18 Pulse Ox (%): 100 - Physical Exam General: Alert, In no apparent distress Musculoskeletal: Other (LLE: dressing c/d/i; +EHL/FHL/GSC/TA; sensation grossly intact distally) Assessment And Plan - Plan Wen is an 82 yo female s/p left hip nail POD#1 -PT to mobilize; WBAT LLE -lovenox for DVT prophylaxis -acute expected postoperative blood loss anemia; continue to monitor H/H
[2018-03-29] MEDS: INSULIN -REGULAR HUMAN 50 UNIT/0.5 ML ML SQ SCH ×4 (08:39→20:42)
[2018-03-29] MEDS: ENOXAPARIN 30 MG/0.3 ML SQ SCH (08:40)
[2018-03-29] MEDS: GABAPENTIN 100 MG CAP PO SCH ×2 (08:40→20:40)
[2018-03-29] MEDS: CEFTRIAXONE/SWI 1gm 1 GM/10 ML SYR IV SCH (08:40)
[2018-03-29] MEDS: FOLIC ACID 1 MG TABLET PO SCH (08:41)
[2018-03-29] MEDS: PANTOPRAZOLE 40MG TABLET PO SCH (08:41)
[2018-03-29] MEDS: AZITHROMYCIN IV 500 MG in NA CHLORIDE 0.9% 250 ML IVPB SCH (08:42)
[2018-03-29] MEDS: DOCUSATE NA 100 MG CAP PO SCH (08:56)
[2018-03-29] MEDS: FUROSEMIDE 40 MG TABLET PO SCH ×2 (09:00→18:36)
[2018-03-29] MEDS: FEXOFENADINE HCL 60 MG PO SCH (09:00)
[2018-03-29] MEDS: LEVOTHYROXINE SOD 0.088 MG TAB PO SCH (09:10)
--- NOTE | 2018-03-29 10:43 | RAD REPORT ---
EXAM DESCRIPTION: RAD - Hip In Or - 03/29/2018 9:36 am CLINICAL HISTORY: LEFT HIP FX COMPARISON: Pelvis dated 03/26/2018 FINDINGS: Fluoroscopic imaging is submitted from left hip intramedullary niall placement. Details of t he procedure not available. Total fluoro time 0.9 minutes.
[2018-03-29] MEDS: CYANOCOBALAMIN 1,000 MCG TAB PO SCH (12:32)
[2018-03-29] MEDS: SITAGLIPTIN PHOS 100 MG TAB PO SCH (12:32)
[2018-03-29 13:28] LABS: Urine Appearance CLOUDY; Urine Bilirubin NEGATIVE (NEG); Urine Blood 3+ (NEG); Urine Color YELLOW; Urine Glucose NEGATIVE (NEG); Urine Protein 2+ (NEG); Urine Urobilinogen 0.2 mg/dL (0.2-1.0); Urine pH 5.5 (5.0-7.0)
[2018-03-29 13:48] LABS: Urine Microscopic Reflex ORDER UMIC
[2018-03-29 13:58] LABS: Urine Bacteria 20-50 /HPF (<20); Urine Culture Reflex Order REFLEXED; Urine RBC 20-50 /HPF (NONE SEEN)
[2018-03-29] MEDS: NA CHLORIDE 0.9% 1,000 ML IV SCH ×2 (15:04→22:20)
[2018-03-29] MEDS: HYDROCODONE/APAP 7.5/325 MG TAB PO PRN ×2 (15:25→21:34)
--- NOTE | 2018-03-29 15:42 | PN ---
Subjective: Currently, she is lying in bed. She looks comfortable. She has no chest pain. No abdominal pain, but she has still hip pain after surgery. According to her daughter, she is little bit constipated. No nausea overnight. No vomiting. She has poor appetite though. Objective: Vital Signs: Currently, blood pressure is 118/53, respiratory rate 18, pulse 86, temperature 98.5, saturating 98% on 2 L nasal cannula. General: She is alert and oriented x3. Does not look in any distress. HEENT: Atraumatic, normocephalic. PERRLA. Oral mucosa is moist. Neck: Supple. No JVD. No carotid bruits. Chest: Clear to auscultation. Good air entry. Heart: Regular rate and rhythm. S1, S2 normal. No gallop or murmur. Abdomen: Soft, nontender. No masses. No hepatosplenomegaly. Positive bowel sounds. Extremities: No clubbing. No cyanosis. No edema on the right. Trace edema on the left. No calf tenderness. Neurologic: Grossly intact. Laboratory Data: Labs this morning, CBC with hemoglobin dropped to 8.3 postop. White blood cells 12.5, platelets 202. Chemistry within normal except for creatinine is 1.4, GFR of 36 which is stable from yesterday. Glucose in the range of 207 to 289. Calcium at 7, but albumin at 2.2. Assessment And Plan: This is an 82-year-old, admitted with history of fall. 1. Hip fracture on the left status post open reduction and internal fixation. Postop day 1, doing very well. 2. Type 2 diabetes mellitus. still high, will resume patient diabetes Home meds 3. Right lower lobe lung pneumonia. White blood cells finally start to trend down. Blood culture ordered, but was not done. We will continue on antibiotic with ceftriaxone and Zithromax. 4. Chronic renal insufficiency. Stable GFR. We will observe. 5. Chronic back pain without sciatica. She is on pain medication. 6. Constipation, secondary to pain medication. I will add Colace and milk of magnesia. 7. History of cerebrovascular accident. The patient was on Plavix, was on hold for surgery. We will resume that when surgeon is okay. 8. Postop anemia. Observe H and H. We will transfuse if hemoglobin drops below 8. 9. Hyperlipidemia. Continue statin. 10. Hypertension, well controlled. 11. Discharge plan hopefully this week to the rehab. Discussed with daughter. DUSTIN/JESENIA Voice ID: [id number] Report ID: [id number] [id number]
[2018-03-29] MEDS: QUETIAPINE 100MG TAB PO SCH (20:40)
[2018-03-29] MEDS: ATORVASTATIN 20 MG TAB PO SCH (20:40)
[2018-03-30] MEDS: LEVOTHYROXINE SOD 0.088 MG TAB PO SCH (05:20)
[2018-03-30] MEDS: INSULIN -REGULAR HUMAN 50 UNIT/0.5 ML ML SQ SCH ×4 (07:30→20:36)
--- NOTE | 2018-03-30 08:27 | ECHO ---
HEIGHT: 5 ft 1 in WEIGHT: 165 lb 0 oz DATE OF STUDY: 03/27/[address]: 2-DIMENSIONAL: YES M.MODE: YES DOPPLER: YES COLOR FLOW: YES TDS: NO PORTABLE: NO DEFINITY: NO BUBBLE STUDY: NO DIAGNOSIS: EVALUATE LEFT VENTRICULAR FUNCTION. CARDIAC HISTORY: CATHERIZATION: SURGERY: PROSTHETIC VALVE: PACEMAKER: MEASUREMENTS (cm) DIASTOLIC (NORMALS) SYSTOLIC (NORMALS) IVSd 0.9 (0.6-1.2) LA Diam 4.0 (1.9-4.0) LVEF 54% LVIDd 4.7 (3.5-5.7) LVIDs 3.4 (2.0-3.5) %FS 28% LVPWd 1.2 (0.6-1.2) Ao Diam 3.0 (2.0-3.7) 2 DIMENSIONAL ASSESSMENT: RIGHT ATRIUM: NORMAL LEFT ATRIUM: NORMAL RIGHT VENTRICLE: NORMAL LEFT VENTRICLE: NORMAL TRICUSPID VALVE: NORMAL MITRAL VALVE: NORMAL PULMONIC VALVE: NORMAL AORTIC VALVE: SCLEROTIC PERICARDIAL EFFUSION: NONE AORTIC ROOT: NORMAL LEFT VENTRICULAR WALL MOTION: NORMAL DOPPLER/COLOR FLOW: NORMAL COMMENTS: AORTIC SCLEROSIS- NO STENOSIS. NORMAL LEFT VENTRICULAR SIZE AND FUNCTION. NO WALL MOTION ABNORMALITIES. NO EFFUSION. TECHNOLOGIST: RAFAELA SALAZAR RDCS
[2018-03-30] MEDS: ENOXAPARIN 30 MG/0.3 ML SQ SCH (08:53)
[2018-03-30] MEDS: FUROSEMIDE 40 MG TABLET PO SCH (08:54)
[2018-03-30] MEDS: CYANOCOBALAMIN 1,000 MCG TAB PO SCH (08:54)
[2018-03-30] MEDS: SITAGLIPTIN PHOS 100 MG TAB PO SCH (08:54)
[2018-03-30] MEDS: CEFTRIAXONE/SWI 1gm 1 GM/10 ML SYR IV SCH (08:54)
[2018-03-30] MEDS: FOLIC ACID 1 MG TABLET PO SCH (08:54)
[2018-03-30] MEDS: GABAPENTIN 100 MG CAP PO SCH ×2 (08:54→20:35)
[2018-03-30] MEDS: DOCUSATE NA 100 MG CAP PO SCH (08:54)
[2018-03-30] MEDS: glipiZIDE 5 MG TAB PO SCH (08:55)
[2018-03-30] MEDS: RANITIDINE 150 MG TABLET PO SCH (08:55)
[2018-03-30] MEDS: FEXOFENADINE HCL 60 MG PO SCH (08:55)
[2018-03-30] MEDS: PANTOPRAZOLE 40MG TABLET PO SCH (08:55)
[2018-03-30] MEDS: AZITHROMYCIN IV 500 MG in NA CHLORIDE 0.9% 250 ML IVPB SCH (08:56)
[2018-03-30] MEDS ORDERED: HOME MED 1 EA UNK (Glipizide [Glucotrol] 10 MG) PO SCH (09:00)
[2018-03-30] MEDS: HYDROCODONE/APAP 7.5/325 MG TAB PO PRN ×2 (09:10→23:35)
[2018-03-30 11:03] LABS: Absolute Lymphocytes (CBC) 1.1 K/uL (0.7-4.9); Absolute Monocytes 0.6 K/uL (0.1-1.3); Absolute Neutrophil 7.1 K/uL (1.8-8.0); Basophils % 0.8 % (0-1.3); Eosinophils % 9.3 % (0-4.4); Hematocrit 22.5 % (36.0-45.0); Lymphocytes % 11.6 % (15.3-44.8); MCH 30.8 pg (27.0-35.0); MCV 93.1 fL (80-100); MPV 10.5 fL (7.6-11.3); Monocytes % 6.1 % (3.3-12.3); RBC Red Blood Cell Count 2.41 M/uL (3.86-4.86)
[2018-03-30 11:09] LABS: Potassium 4.1 mmol/L (3.5-5.1)
[2018-03-30 12:37] LABS: RBC Red Blood Cell Count 2.7 M/uL (3.86-4.86)
[2018-03-30 12:38] LABS: Hematocrit 25.2 % (36.0-45.0)
--- NOTE | 2018-03-30 12:43 | P.PN ---
Subjective Date of Service: 03/30/18 Chief Complaint: s/p left hip nail Subjective: Working w/ PT Pain controlled at this time. Pain with physical therapy. Physical Examination - Vital Signs Temperature: 98.5 F Blood Pressure: 121/58 Pulse: 86 Respirations: 18 Pulse Ox (%): 96 - Physical Exam General: Alert, In no apparent distress Musculoskeletal: Other (LLE: dressing c/d/i; +EHL/FHL/GSC;TA sensation grossly intact distally; mild swelling of left thigh) Assessment And Plan - Plan Wen is an 82 yo female s/p left hip nail POD#2 -PT to mobilize; WBAT LLE -lovenox for DVT prophylaxis -acute expected postoperative blood loss on chronic anemia; continue to monitor H/H; discussed with Dr. Farrar likely need for transfusion given her use of lovenox for DVT prophylaxis and recent surgery; he will check further labs and transfuse as needed
--- NOTE | 2018-03-30 16:06 | P.PN ---
Subjective Date of Service: 03/30/18 Chief Complaint: s/p left hip nail Subjective: New changes (Patient has a a hb of 7.4) Review of Systems 10-point ROS is otherwise unremarkable Physical Examination - Vital Signs Temperature: 98.5 F Blood Pressure: 121/58 Pulse: 86 Respirations: 18 Pulse Ox (%): 96 - Physical Exam General: Alert, In no apparent distress HEENT: Atraumatic, PERRLA, EOMI Neck: Supple, JVD not distended Respiratory: Clear to auscultation bilaterally, Normal air movement Cardiovascular: Regular rate/rhythm, Normal S1 S2 Gastrointestinal: Normal bowel sounds, No tenderness Musculoskeletal: No tenderness Integumentary: No rashes Neurological: Normal speech, Normal tone, Normal affect Lymphatics: No axilla or inguinal lymphadenopathy Assessment & Plan - Problems (Diagnosis) (1) Anemia Current Visit: Yes Status: Acute Plan: May be due to blood loss. Did improve on repeat testing. Will continue to monitor. If she falls below 7 will transfuse. Qualifiers: Anemia type: iron deficiency Iron deficiency anemia type: unspecified iron deficiency Qualified Code(s): D50.9 - Iron deficiency anemia, unspecified (2) Closed left hip fracture Onset Date: 03/30/18 Current Visit: Yes Status: Acute Plan: She has finished surgery with Dr. Kwok. Unfortunately with her dementia she is not a good candidate to go home. Family has expressed interest in long-term care in the past. Will have socially responsible investment adviser plan for this. Qualifiers: Encounter type: subsequent encounter Fracture healing: with routine healing Qualified Code(s): S72.002D - Fracture of unspecified part of neck of left femur, subsequent encounter for closed fracture with routine healing (3) Diabetes 1.5, managed as type 2 Onset Date: 03/30/18 Current Visit: Yes Status: Acute Plan: Will continue home medications. With insulin sliding scale to cover (4) Alzheimer's dementia without behavioral disturbance Current Visit: No Status: Acute Plan: Will see about long-term placement Qualifiers: Alzheimer's disease onset: late-onset Qualified Code(s): G30.1 - Alzheimer' s disease with late onset; F02.80 - Dementia in other diseases classified elsewhere without behavioral disturbance (5) CKD (chronic kidney disease), stage II Onset Date: 03/30/18 Current Visit: Yes Status: Acute Plan: stable continue to monitor. Discharge Plan: Care Home Plan to discharge in: 48 Hours - Code Status/Comfort Care Code Status Assessed: No Code Status: Full Code Physician Review: Patient Assessed, Agree with Above Assessment and Plan Critical Care: No Time Spent Managing Pts Care (In Minutes): 30
[2018-03-30] MEDS: NA CHLORIDE 0.9% 1,000 ML IV SCH (19:00)
[2018-03-30] MEDS: ATORVASTATIN 20 MG TAB PO SCH (20:35)
[2018-03-30] MEDS: QUETIAPINE 100MG TAB PO SCH (20:35)
[2018-03-31] MEDS: LEVOTHYROXINE SOD 0.088 MG TAB PO SCH (05:41)
[2018-03-31] MEDS: INSULIN -REGULAR HUMAN 50 UNIT/0.5 ML ML SQ SCH ×4 (07:30→21:00)
--- NOTE | 2018-03-31 08:32 | P.PN ---
Subjective Date of Service: 03/31/18 Chief Complaint: s/p left hip nail Subjective: No new changes Review of Systems 10-point ROS is otherwise unremarkable Physical Examination - Vital Signs Temperature: 97.3 F Blood Pressure: 124/59 Pulse: 72 Respirations: 16 Pulse Ox (%): 99 - Physical Exam General: Alert, In no apparent distress HEENT: Atraumatic, PERRLA, EOMI Neck: Supple, JVD not distended Respiratory: Clear to auscultation bilaterally, Normal air movement Cardiovascular: Regular rate/rhythm, Normal S1 S2 Gastrointestinal: Normal bowel sounds, No tenderness Musculoskeletal: No tenderness Integumentary: No rashes Neurological: Normal speech, Normal tone, Normal affect Lymphatics: No axilla or inguinal lymphadenopathy Assessment & Plan - Problems (Diagnosis) (1) Anemia Current Visit: Yes Status: Acute Plan: Her anemia is improved. Will recheck today. If she falls below 7 will transfuse. Qualifiers: Anemia type: iron deficiency Iron deficiency anemia type: unspecified iron deficiency Qualified Code(s): D50.9 - Iron deficiency anemia, unspecified (2) Closed left hip fracture Onset Date: 03/30/18 Current Visit: Yes Status: Acute Plan: She has finished surgery with Dr. Kwok. Unfortunately with her dementia she is not a good candidate to go home. Family has expressed interest in [facility] care in the past. Will have healthcare social worker plan for this. Qualifiers: Encounter type: subsequent encounter Fracture healing: with routine healing Qualified Code(s): S72.002D - Fracture of unspecified part of neck of left femur, subsequent encounter for closed fracture with routine healing (3) Diabetes 1.5, managed as type 2 Onset Date: 03/30/18 Current Visit: Yes Status: Acute Plan: Will continue home medications. With insulin sliding scale to cover (4) Alzheimer's dementia without behavioral disturbance Current Visit: No Status: Acute Plan: Will see about [facility] placement Qualifiers: Alzheimer's disease onset: late-onset Qualified Code(s): G30.1 - Alzheimer' s disease with late onset; F02.80 - Dementia in other diseases classified elsewhere without behavioral disturbance (5) CKD (chronic kidney disease), stage II Onset Date: 03/30/18 Current Visit: Yes Status: Acute Plan: slight elevation yesterday. However she is in her normal range. Will recheck. If she is below 1.7 we can send her to [place] Discharge Plan: Shelter Plan to discharge in: 24 Hours - Code Status/Comfort Care Code Status Assessed: No Code Status: Full Code Physician Review: Patient Assessed, Agree with Above Assessment and Plan Critical Care: No Time Spent Managing Pts Care (In Minutes): 20
[2018-03-31 08:38] LABS: Absolute Lymphocytes (CBC) 1.5 K/uL (0.7-4.9); Absolute Monocytes 0.6 K/uL (0.1-1.3); Absolute Neutrophil 4.8 K/uL (1.8-8.0); Basophils % 0.7 % (0-1.3); Eosinophils % 14.2 % (0-4.4); Hematocrit 22.2 % (36.0-45.0); MCH 31.7 pg (27.0-35.0); MCV 90.3 fL (80-100); MPV 10.3 fL (7.6-11.3); Monocytes % 7.6 % (3.3-12.3); RBC Red Blood Cell Count 2.46 M/uL (3.86-4.86)
[2018-03-31] MEDS: AZITHROMYCIN IV 500 MG in NA CHLORIDE 0.9% 250 ML IVPB SCH (08:47)
[2018-03-31] MEDS: HYDROCODONE/APAP 7.5/325 MG TAB PO PRN ×2 (08:48→21:06)
[2018-03-31] MEDS: GABAPENTIN 100 MG CAP PO SCH ×2 (08:48→21:07)
[2018-03-31] MEDS: SITAGLIPTIN PHOS 100 MG TAB PO SCH (08:48)
[2018-03-31] MEDS: CYANOCOBALAMIN 1,000 MCG TAB PO SCH (08:48)
[2018-03-31] MEDS: ENOXAPARIN 30 MG/0.3 ML SQ SCH (08:48)
[2018-03-31] MEDS: FUROSEMIDE 40 MG TABLET PO SCH (08:48)
[2018-03-31] MEDS: glipiZIDE 5 MG TAB PO SCH (08:49)
[2018-03-31] MEDS: FOLIC ACID 1 MG TABLET PO SCH (08:49)
[2018-03-31] MEDS: RANITIDINE 150 MG TABLET PO SCH (08:49)
[2018-03-31] MEDS: DOCUSATE NA 100 MG CAP PO SCH (08:49)
[2018-03-31] MEDS: PANTOPRAZOLE 40MG TABLET PO SCH (08:49)
[2018-03-31 08:50] LABS: Potassium 3.9 mmol/L (3.5-5.1)
[2018-03-31] MEDS: CEFTRIAXONE/SWI 1gm 1 GM/10 ML SYR IV SCH (08:50)
[2018-03-31 08:51] LABS: Albumin 2.1 g/dL (3.4-5.0); Bilirubin Total 0.3 mg/dL (0.2-1.0)
[2018-03-31] MEDS: FEXOFENADINE HCL 60 MG PO SCH (08:55)
[2018-03-31 13:15] LABS: Hematocrit 22.4 % (36.0-45.0)
[2018-03-31] MEDS: NA CHLORIDE 0.9% 1,000 ML IV SCH ×2 (15:00→18:01)
--- NOTE | 2018-03-31 17:04 | P.PN ---
Subjective Date of Service: 03/31/18 Chief Complaint: s/p left hip nail Subjective: Working w/ PT Pain controlled at this time. Pain with physical therapy. Physical Examination - Vital Signs Temperature: 97.1 F Blood Pressure: 116/55 Pulse: 78 Respirations: 17 Pulse Ox (%): 94 - Physical Exam General: Alert, In no apparent distress Musculoskeletal: Other (LLE: dressing c/d/i; mild swelling of thigh; NVI distally) Assessment And Plan - Plan Wen is an 82 yo female s/p left hip nail POD#3 -PT to mobilize; WBAT LLE -lovenox for DVT prophylaxis -acute expected postoperative blood loss on chronic anemia; patient will be transfused 1 Unit PRBC today Physician Review: Patient Assessed, Agree with Above Assessment and Plan
[2018-03-31] MEDS ORDERED: NA CHLORIDE 0.9% 50 ML ONE (18:22)
[2018-03-31] MEDS: QUETIAPINE 100MG TAB PO SCH (21:06)
[2018-03-31] MEDS: ATORVASTATIN 20 MG TAB PO SCH (21:06)
[2018-04-01 03:52] LABS: Absolute Monocytes 0.4 K/uL (0.1-1.3); Absolute Neutrophil 4.2 K/uL (1.8-8.0); Basophils % 3.2 % (0-1.3); Eosinophils % 11.3 % (0-4.4); Hematocrit 30.4 % (36.0-45.0); Lymphocytes % 25.8 % (15.3-44.8); MCH 29.6 pg (27.0-35.0); MCV 88.5 fL (80-100); MPV 10.8 fL (7.6-11.3); Monocytes % 5.3 % (3.3-12.3); RBC Red Blood Cell Count 3.44 M/uL (3.86-4.86)
[2018-04-01] MEDS: LEVOTHYROXINE SOD 0.088 MG TAB PO SCH (05:33)
[2018-04-01] MEDS: INSULIN -REGULAR HUMAN 50 UNIT/0.5 ML ML SQ SCH ×4 (07:30→20:34)
[2018-04-01] MEDS: FEXOFENADINE HCL 60 MG PO SCH (09:00)
--- NOTE | 2018-04-01 09:34 | P.DS ---
Admission Date: 03/26/18 Discharge Date: 04/01/18 Disposition: TRANSFER TO RESIDENTIAL Discharge Condition: GOOD Reason for Admission: s/p left hip nail - Problems (1) Anemia Current Visit: Yes Status: Acute Qualifiers: Anemia type: iron deficiency Iron deficiency anemia type: unspecified iron deficiency Qualified Code(s): D50.9 - Iron deficiency anemia, unspecified (2) Closed left hip fracture Onset Date: 03/30/18 Current Visit: Yes Status: Acute Qualifiers: Encounter type: subsequent encounter Fracture healing: with routine healing Qualified Code(s): S72.002D - Fracture of unspecified part of neck of left femur, subsequent encounter for closed fracture with routine healing (3) Diabetes 1.5, managed as type 2 Onset Date: 03/30/18 Current Visit: Yes Status: Acute (4) Alzheimer's dementia without behavioral disturbance Current Visit: No Status: Acute Qualifiers: Alzheimer's disease onset: late-onset Qualified Code(s): G30.1 - Alzheimer' s disease with late onset; F02.80 - Dementia in other diseases classified elsewhere without behavioral disturbance (5) CKD (chronic kidney disease), stage II Onset Date: 03/30/18 Current Visit: Yes Status: Acute Brief History of Present Illness: Patient was admitted by the hospitalist for fall and hip fracture Hospital Course: Patient was seen by Dr. Kwok. She had surgery. Stay was complicated by anemia. She recieved 1 unit of PRBC. She is doing well. Will be discharging her to [place]. Have her follow up with Dr. Kwok for the hip replacement. We can start wound care and PT there. Vital Signs/Physical Exam: Temp Pulse Resp BP Pulse Ox 98.1 F 77 18 143/59 H 94 04/01/18 08:00 04/01/18 08:00 04/01/18 08:00 04/01/18 08:00 04/01/18 08:00 General: Alert, In no apparent distress HEENT: Atraumatic, PERRLA, EOMI Neck: Supple, JVD not distended Respiratory: Clear to auscultation bilaterally, Normal air movement Cardiovascular: Regular rate/rhythm, Normal S1 S2 Gastrointestinal: Normal bowel sounds, No tenderness Musculoskeletal: No tenderness, Other (Normal dressing over the left hip) Integumentary: No rashes Neurological: Normal speech, Normal tone, Normal affect Lymphatics: No axilla or inguinal lymphadenopathy Laboratory Data at Discharge: WBC 7.8 K/uL (4.3-10.9) 04/01/18 03:10 Hgb 10.2 g/dL (12.0-15.0) L D 04/01/18 03:10 Hct 30.4 % (36.0-45.0) L D 04/01/18 03:10 Plt Count 204 K/uL (152-406) D 04/01/18 03:10 PT 12.7 SECONDS (9.5-12.5) H 03/26/18 13:35 INR 1.08 03/26/18 13:35 APTT 29.4 SECONDS (24.3-36.9) 03/26/18 13:35 Sodium 142 mmol/L (136-145) 03/31/18 08:14 Potassium 3.9 mmol/L (3.5-5.1) 03/31/18 08:14 BUN 18 mg/dL (7-18) 03/31/18 08:14 Creatinine 1.40 mg/dL (0.55-1.3) H 03/31/18 08:14 Glucose 129 mg/dL (74-106) H 03/31/18 08:14 Total Bilirubin 0.3 mg/dL (0.2-1.0) 03/31/18 08:14 AST 15 U/L (15-37) 03/31/18 08:14 ALT 13 U/L (12-78) 03/31/18 08:14 Alkaline Phosphatase 83 U/L (45-117) 03/31/18 08:14 Home Medications: Aspirin [Ecotrin 81 MG] 81 mg PO DAILY 02/17/18 Clopidogrel Bisulfate [Clopidogrel] 75 mg PO DAILY 02/17/18 Cyanocobalamin [Vitamin B-12*] 1,000 mcg PO DAILY 02/17/18 Docusate [Colace Cap*] 100 mg PO DAILY 02/17/18 Fexofenadine HCl 60 mg PO DAILY 02/17/18 Folic Acid 1 mg PO DAILY 02/17/18 Furosemide [Lasix*] 40 mg PO DAILY 02/17/18 Gabapentin [Neurontin*] 100 mg PO BID 02/17/18 Glipizide [Glucotrol] 10 mg PO DAILY 02/17/18 Levothyroxine [Synthroid*] 88 mcg PO DAILY 02/17/18 Lovastatin 40 mg PO DAILY 02/17/18 Pantoprazole Sodium 40 mg PO DAILY 02/17/18 Quetiapine Fumarate [Seroquel] 100 mg PO BEDTIME 02/17/18 Ranitidine [Zantac*] 300 mg PO DAILY 02/17/18 Sitagliptin Phosphate [Januvia*] 100 mg PO DAILY 02/17/18 Enoxaparin Sodium [Lovenox 30 MG INJ*] 30 mg SQ DAILY 7 Days #7 syr 04/01/18 New Medications: Enoxaparin Sodium [Lovenox 30 MG INJ*] 30 mg SQ DAILY 7 Days #7 syr Diet: ADA Activity: Fall precautions Followup: Jann Kwok MD [ACTIVE - CAN ADMIT] - Physician Review: Patient Assessed, Agree with Above Assessment and Plan Time spent managing pt's care (in minutes): 40
[2018-04-01] MEDS: FUROSEMIDE 40 MG TABLET PO SCH (09:49)
[2018-04-01] MEDS: SITAGLIPTIN PHOS 100 MG TAB PO SCH (09:50)
[2018-04-01] MEDS: DOCUSATE NA 100 MG CAP PO SCH (09:50)
[2018-04-01] MEDS: PANTOPRAZOLE 40MG TABLET PO SCH (09:50)
[2018-04-01] MEDS: glipiZIDE 5 MG TAB PO SCH (09:50)
[2018-04-01] MEDS: GABAPENTIN 100 MG CAP PO SCH ×2 (09:50→20:31)
[2018-04-01] MEDS: CYANOCOBALAMIN 1,000 MCG TAB PO SCH (09:51)
[2018-04-01] MEDS: CEFTRIAXONE/SWI 1gm 1 GM/10 ML SYR IV SCH (09:51)
[2018-04-01] MEDS: FOLIC ACID 1 MG TABLET PO SCH (09:51)
[2018-04-01] MEDS: ENOXAPARIN 30 MG/0.3 ML SQ SCH (09:51)
[2018-04-01] MEDS: NA CHLORIDE 0.9% 1,000 ML IV SCH (09:52)
[2018-04-01] MEDS: AZITHROMYCIN IV 500 MG in NA CHLORIDE 0.9% 250 ML IVPB SCH (09:54)
[2018-04-01] MEDS: RANITIDINE 150 MG TABLET PO SCH (09:55)
[2018-04-01] MEDS: MORPHINE 4 MG/ML SYR IV PRN (10:57)
[2018-04-01] MEDS: HYDROCODONE/APAP 7.5/325 MG TAB PO PRN ×2 (13:15→20:31)
[2018-04-01] MEDS: MAGNESIUM HYDROXIDE 8% 30 ML PO PRN (13:16)
[2018-04-01] MEDS: QUETIAPINE 100MG TAB PO SCH (20:31)
[2018-04-01] MEDS: ATORVASTATIN 20 MG TAB PO SCH (20:31)
[2018-04-02] MEDS: LEVOTHYROXINE SOD 0.088 MG TAB PO SCH (04:59)
[2018-04-02] MEDS: NA CHLORIDE 0.9% 1,000 ML IV SCH (04:59)
[2018-04-02] MEDS: HYDROCODONE/APAP 7.5/325 MG TAB PO PRN ×3 (05:00→21:38)
[2018-04-02] MEDS: INSULIN -REGULAR HUMAN 50 UNIT/0.5 ML ML SQ SCH ×4 (07:30→21:38)
[2018-04-02] MEDS: ENOXAPARIN 30 MG/0.3 ML SQ SCH (10:02)
[2018-04-02] MEDS: PANTOPRAZOLE 40MG TABLET PO SCH (10:03)
[2018-04-02] MEDS: SITAGLIPTIN PHOS 100 MG TAB PO SCH (10:03)
[2018-04-02] MEDS: glipiZIDE 5 MG TAB PO SCH (10:03)
[2018-04-02] MEDS: DOCUSATE NA 100 MG CAP PO SCH (10:03)
[2018-04-02] MEDS: RANITIDINE 150 MG TABLET PO SCH (10:03)
[2018-04-02] MEDS: CYANOCOBALAMIN 1,000 MCG TAB PO SCH (10:04)
[2018-04-02] MEDS: FUROSEMIDE 40 MG TABLET PO SCH (10:04)
[2018-04-02] MEDS: FEXOFENADINE HCL 60 MG PO SCH (10:07)
[2018-04-02] MEDS: GABAPENTIN 100 MG CAP PO SCH ×2 (10:07→21:38)
[2018-04-02] MEDS: FOLIC ACID 1 MG TABLET PO SCH (10:07)
[2018-04-02] MEDS: CEFTRIAXONE/SWI 1gm 1 GM/10 ML SYR IV SCH (10:08)
[2018-04-02] MEDS: AZITHROMYCIN IV 500 MG in NA CHLORIDE 0.9% 250 ML IVPB SCH (10:08)
--- NOTE | 2018-04-02 11:35 | P.PN ---
Subjective Date of Service: 04/02/18 Chief Complaint: s/p left hip nail Subjective: No new changes (Patient in bed, daughter in the room. No complaints ) Review of Systems 10-point ROS is otherwise unremarkable Physical Examination - Vital Signs Temperature: 97.2 F Blood Pressure: 166/70 Pulse: 73 Respirations: 20 Pulse Ox (%): 92 - Physical Exam General: Alert, In no apparent distress HEENT: Atraumatic, PERRLA, EOMI Neck: Supple, JVD not distended Respiratory: Clear to auscultation bilaterally, Normal air movement Cardiovascular: Regular rate/rhythm, Normal S1 S2 Gastrointestinal: Normal bowel sounds, No tenderness Musculoskeletal: No tenderness Integumentary: No rashes Neurological: Normal speech, Normal tone, Normal affect Lymphatics: No axilla or inguinal lymphadenopathy Assessment & Plan - Problems (Diagnosis) (1) Anemia Current Visit: Yes Status: Acute Plan: Her anemia is improved. Will recheck today. If she falls below 7 will transfuse. Qualifiers: Anemia type: iron deficiency Iron deficiency anemia type: unspecified iron deficiency Qualified Code(s): D50.9 - Iron deficiency anemia, unspecified (2) Closed left hip fracture Onset Date: 03/30/18 Current Visit: Yes Status: Acute Plan: awaiting placement to [place]. Discharge was held yesterday waiting for insurance authorization. She has been accepted. Hopefully we can get authorization today. Qualifiers: Encounter type: subsequent encounter Fracture healing: with routine healing Qualified Code(s): S72.002D - Fracture of unspecified part of neck of left femur, subsequent encounter for closed fracture with routine healing (3) Diabetes 1.5, managed as type 2 Onset Date: 03/30/18 Current Visit: Yes Status: Acute Plan: Will continue home medications. With insulin sliding scale to cover (4) Alzheimer's dementia without behavioral disturbance Current Visit: No Status: Acute Plan: Will see about long term placement Qualifiers: Alzheimer's disease onset: late-onset Qualified Code(s): G30.1 - Alzheimer' s disease with late onset; F02.80 - Dementia in other diseases classified elsewhere without behavioral disturbance (5) CKD (chronic kidney disease), stage II Onset Date: 03/30/18 Current Visit: Yes Status: Acute Plan: slight elevation yesterday. However she is in her normal range. Will recheck. If she is below 1.7 we can send her to [facility] Discharge Plan: [facility] Plan to discharge in: 24 Hours - Code Status/Comfort Care Code Status Assessed: No Code Status: Full Code Physician Review: Patient Assessed, Agree with Above Assessment and Plan Critical Care: No Time Spent Managing Pts Care (In Minutes): 20
[2018-04-02] MEDS: MAGNESIUM HYDROXIDE 8% 30 ML PO PRN (12:16)
[2018-04-02] MEDS: QUETIAPINE 100MG TAB PO SCH (21:38)
[2018-04-02] MEDS: ATORVASTATIN 20 MG TAB PO SCH (21:38)
[2018-04-03] MEDS: PANTOPRAZOLE 40MG TABLET PO SCH (05:05)
[2018-04-03] MEDS: LEVOTHYROXINE SOD 0.088 MG TAB PO SCH (05:05)
[2018-04-03] MEDS: NA CHLORIDE 0.9% 1,000 ML IV SCH ×2 (05:06→23:44)
[2018-04-03 06:15] LABS: Absolute Lymphocytes (CBC) 2.3 K/uL (0.7-4.9); Absolute Monocytes 0.8 K/uL (0.1-1.3); Hematocrit 26.5 % (36.0-45.0); Lymphocytes % 24.4 % (15.3-44.8); MCH 30.2 pg (27.0-35.0); MCV 88.1 fL (80-100); MPV 10.3 fL (7.6-11.3); Monocytes % 8.1 % (3.3-12.3); RBC Red Blood Cell Count 3.01 M/uL (3.86-4.86)
[2018-04-03] MEDS: INSULIN -REGULAR HUMAN 50 UNIT/0.5 ML ML SQ SCH ×4 (07:30→21:01)
[2018-04-03] MEDS: FEXOFENADINE HCL 60 MG PO SCH (09:01)
[2018-04-03] MEDS: DOCUSATE NA 100 MG CAP PO SCH (09:01)
[2018-04-03] MEDS: glipiZIDE 5 MG TAB PO SCH (09:01)
[2018-04-03] MEDS: SITAGLIPTIN PHOS 100 MG TAB PO SCH (09:02)
[2018-04-03] MEDS: FUROSEMIDE 40 MG TABLET PO SCH (09:02)
[2018-04-03] MEDS: CYANOCOBALAMIN 1,000 MCG TAB PO SCH (09:02)
[2018-04-03] MEDS: RANITIDINE 150 MG TABLET PO SCH (09:02)
[2018-04-03] MEDS: GABAPENTIN 100 MG CAP PO SCH ×2 (09:02→21:02)
[2018-04-03] MEDS: FOLIC ACID 1 MG TABLET PO SCH (09:02)
[2018-04-03] MEDS: ENOXAPARIN 30 MG/0.3 ML SQ SCH (09:02)
[2018-04-03] MEDS: HYDROCODONE/APAP 7.5/325 MG TAB PO PRN (10:10)
--- NOTE | 2018-04-03 12:07 | P.PN ---
Subjective Date of Service: 04/03/18 Chief Complaint: s/p left hip nail Subjective: No new changes (awaiting insurance approval for [facility] placement) Review of Systems 10-point ROS is otherwise unremarkable Physical Examination - Vital Signs Temperature: 97.4 F Blood Pressure: 124/59 Pulse: 71 Respirations: 16 Pulse Ox (%): 97 - Physical Exam General: Alert, In no apparent distress HEENT: Atraumatic, PERRLA, EOMI Neck: Supple, JVD not distended Respiratory: Clear to auscultation bilaterally, Normal air movement Cardiovascular: Regular rate/rhythm, Normal S1 S2 Gastrointestinal: Normal bowel sounds, No tenderness Musculoskeletal: No tenderness Integumentary: No rashes Neurological: Normal speech, Normal tone, Normal affect Lymphatics: No axilla or inguinal lymphadenopathy Assessment & Plan - Problems (Diagnosis) (1) Anemia Current Visit: Yes Status: Acute Plan: Her anemia is improved. Will recheck today. If she falls below 7 will transfuse. Qualifiers: Anemia type: iron deficiency Iron deficiency anemia type: unspecified iron deficiency Qualified Code(s): D50.9 - Iron deficiency anemia, unspecified (2) Closed left hip fracture Onset Date: 03/30/18 Current Visit: Yes Status: Acute Plan: awaiting placement to [place]. Discharge was held yesterday waiting for insurance authorization. She has been accepted. Hopefully we can get authorization today. Qualifiers: Encounter type: subsequent encounter Fracture healing: with routine healing Qualified Code(s): S72.002D - Fracture of unspecified part of neck of left femur, subsequent encounter for closed fracture with routine healing (3) Diabetes 1.5, managed as type 2 Onset Date: 03/30/18 Current Visit: Yes Status: Acute Plan: Will continue home medications. With insulin sliding scale to cover (4) Alzheimer's dementia without behavioral disturbance Current Visit: No Status: Acute Plan: Will see about [facility] placement Qualifiers: Alzheimer's disease onset: late-onset Qualified Code(s): G30.1 - Alzheimer' s disease with late onset; F02.80 - Dementia in other diseases classified elsewhere without behavioral disturbance (5) CKD (chronic kidney disease), stage II Onset Date: 03/30/18 Current Visit: Yes Status: Acute Plan: slight elevation yesterday. However she is in her normal range. Will recheck. If she is below 1.7 we can send her to [place] Discharge Plan: [facility] Living Plan to discharge in: 24 Hours - Code Status/Comfort Care Code Status Assessed: No Code Status: Full Code Physician Review: Patient Assessed, Agree with Above Assessment and Plan Critical Care: No Time Spent Managing Pts Care (In Minutes): 20
[2018-04-03] MEDS: QUETIAPINE 100MG TAB PO SCH (21:02)
[2018-04-03] MEDS: ATORVASTATIN 20 MG TAB PO SCH (21:02)
[2018-04-04] MEDS: LEVOTHYROXINE SOD 0.088 MG TAB PO SCH (05:25)
[2018-04-04] MEDS: INSULIN -REGULAR HUMAN 50 UNIT/0.5 ML ML SQ SCH ×4 (07:30→22:09)
[2018-04-04] MEDS: PANTOPRAZOLE 40MG TABLET PO SCH (08:51)
[2018-04-04] MEDS: glipiZIDE 5 MG TAB PO SCH (08:51)
[2018-04-04] MEDS: DOCUSATE NA 100 MG CAP PO SCH (08:51)
[2018-04-04] MEDS: FEXOFENADINE HCL 60 MG PO SCH (08:51)
[2018-04-04] MEDS: GABAPENTIN 100 MG CAP PO SCH ×2 (08:52→22:06)
[2018-04-04] MEDS: CYANOCOBALAMIN 1,000 MCG TAB PO SCH (08:52)
[2018-04-04] MEDS: FOLIC ACID 1 MG TABLET PO SCH (08:52)
[2018-04-04] MEDS: FUROSEMIDE 40 MG TABLET PO SCH (08:52)
[2018-04-04] MEDS: RANITIDINE 150 MG TABLET PO SCH (08:52)
[2018-04-04] MEDS: SITAGLIPTIN PHOS 100 MG TAB PO SCH (08:52)
[2018-04-04] MEDS: ENOXAPARIN 30 MG/0.3 ML SQ SCH (08:52)
--- NOTE | 2018-04-04 10:21 | P.PN ---
Subjective Date of Service: 04/04/18 Chief Complaint: s/p left hip nail Subjective: No new changes (awaiting insurance authorization for [facility] placement) Review of Systems 10-point ROS is otherwise unremarkable Physical Examination - Vital Signs Temperature: 98.2 F Blood Pressure: 173/69 Pulse: 75 Respirations: 16 Pulse Ox (%): 94 - Physical Exam General: Alert, In no apparent distress HEENT: Atraumatic, PERRLA, EOMI Neck: Supple, JVD not distended Respiratory: Clear to auscultation bilaterally, Normal air movement Cardiovascular: Regular rate/rhythm, Normal S1 S2 Gastrointestinal: Normal bowel sounds, No tenderness Musculoskeletal: No tenderness Integumentary: No rashes Neurological: Normal speech, Normal tone, Normal affect Lymphatics: No axilla or inguinal lymphadenopathy Assessment & Plan - Problems (Diagnosis) (1) Anemia Current Visit: Yes Status: Acute Plan: Her anemia is improved. Will recheck today. If she falls below 7 will transfuse. Qualifiers: Anemia type: iron deficiency Iron deficiency anemia type: unspecified iron deficiency Qualified Code(s): D50.9 - Iron deficiency anemia, unspecified (2) Closed left hip fracture Onset Date: 03/30/18 Current Visit: Yes Status: Acute Plan: awaiting placement to [place]. Discharge was held yesterday waiting for insurance authorization. She has been accepted. Hopefully we can get authorization today. Qualifiers: Encounter type: subsequent encounter Fracture healing: with routine healing Qualified Code(s): S72.002D - Fracture of unspecified part of neck of left femur, subsequent encounter for closed fracture with routine healing (3) Diabetes 1.5, managed as type 2 Onset Date: 03/30/18 Current Visit: Yes Status: Acute Plan: Will continue home medications. With insulin sliding scale to cover (4) Alzheimer's dementia without behavioral disturbance Current Visit: No Status: Acute Plan: Will see about [facility] placement Qualifiers: Alzheimer's disease onset: late-onset Qualified Code(s): G30.1 - Alzheimer' s disease with late onset; F02.80 - Dementia in other diseases classified elsewhere without behavioral disturbance (5) CKD (chronic kidney disease), stage II Onset Date: 03/30/18 Current Visit: Yes Status: Acute Plan: slight elevation yesterday. However she is in her normal range. Will recheck. If she is below 1.7 we can send her to [place] Discharge Plan: [facility] Plan to discharge in: 24 Hours - Code Status/Comfort Care Code Status Assessed: No Code Status: Full Code Physician Review: Patient Assessed, Agree with Above Assessment and Plan Critical Care: No Time Spent Managing Pts Care (In Minutes): 20
[2018-04-04] MEDS: QUETIAPINE 100MG TAB PO SCH (22:06)
[2018-04-04] MEDS: ATORVASTATIN 20 MG TAB PO SCH (22:06)
[2018-04-05] MEDS: LEVOTHYROXINE SOD 0.088 MG TAB PO SCH (06:03)
[2018-04-05] MEDS: INSULIN -REGULAR HUMAN 50 UNIT/0.5 ML ML SQ SCH ×4 (07:30→21:00)
[2018-04-05] MEDS: glipiZIDE 5 MG TAB PO SCH (09:34)
[2018-04-05] MEDS: SITAGLIPTIN PHOS 100 MG TAB PO SCH (09:34)
[2018-04-05] MEDS: PANTOPRAZOLE 40MG TABLET PO SCH (09:34)
[2018-04-05] MEDS: RANITIDINE 150 MG TABLET PO SCH (09:34)
[2018-04-05] MEDS: CYANOCOBALAMIN 1,000 MCG TAB PO SCH (09:34)
[2018-04-05] MEDS: DOCUSATE NA 100 MG CAP PO SCH (09:34)
[2018-04-05] MEDS: GABAPENTIN 100 MG CAP PO SCH ×2 (09:35→21:51)
[2018-04-05] MEDS: FOLIC ACID 1 MG TABLET PO SCH (09:35)
[2018-04-05] MEDS: FUROSEMIDE 40 MG TABLET PO SCH (09:35)
[2018-04-05] MEDS: ENOXAPARIN 30 MG/0.3 ML SQ SCH (09:35)
[2018-04-05] MEDS: FEXOFENADINE HCL 60 MG PO SCH (09:37)
--- NOTE | 2018-04-05 11:08 | P.PN ---
Subjective Date of Service: 04/05/18 Chief Complaint: s/p left hip nail Subjective: No new changes Review of Systems 10-point ROS is otherwise unremarkable Physical Examination - Vital Signs Temperature: 97.9 F Blood Pressure: 141/64 Pulse: 74 Respirations: 16 Pulse Ox (%): 93 - Physical Exam General: Alert, In no apparent distress HEENT: Atraumatic, PERRLA, EOMI Neck: Supple, JVD not distended Respiratory: Clear to auscultation bilaterally, Normal air movement Cardiovascular: Regular rate/rhythm, Normal S1 S2 Gastrointestinal: Normal bowel sounds, No tenderness Musculoskeletal: No tenderness Integumentary: No rashes Neurological: Normal speech, Normal tone, Normal affect Lymphatics: No axilla or inguinal lymphadenopathy Assessment & Plan - Problems (Diagnosis) (1) Anemia Current Visit: Yes Status: Acute Plan: Her anemia is improved. Will recheck today. If she falls below 7 will transfuse. Qualifiers: Anemia type: iron deficiency Iron deficiency anemia type: unspecified iron deficiency Qualified Code(s): D50.9 - Iron deficiency anemia, unspecified (2) Closed left hip fracture Onset Date: 03/30/18 Current Visit: Yes Status: Acute Plan: awaiting placement to [place]. Discharge was held yesterday waiting for insurance authorization. She has been accepted. Hopefully we can get authorization today. Qualifiers: Encounter type: subsequent encounter Fracture healing: with routine healing Qualified Code(s): S72.002D - Fracture of unspecified part of neck of left femur, subsequent encounter for closed fracture with routine healing (3) Diabetes 1.5, managed as type 2 Onset Date: 03/30/18 Current Visit: Yes Status: Acute Plan: Will continue home medications. With insulin sliding scale to cover (4) Alzheimer's dementia without behavioral disturbance Current Visit: No Status: Acute Plan: [facility] see about [facility] Qualifiers: Alzheimer's disease onset: late-onset Qualified Code(s): G30.1 - Alzheimer' s disease with late onset; F02.80 - Dementia in other diseases classified elsewhere without behavioral disturbance (5) CKD (chronic kidney disease), stage II Onset Date: 03/30/18 Current Visit: Yes Status: Acute Plan: slight elevation yesterday. However she is in her normal range. Will recheck. If she is below 1.7 we can send her to [place] Discharge Plan: Longterm Plan to discharge in: 24 Hours - Code Status/Comfort Care Code Status Assessed: Yes Code Status: Full Code Physician Review: Patient Assessed, Agree with Above Assessment and Plan Critical Care: No Time Spent Managing Pts Care (In Minutes): 25
[2018-04-05 11:27] VITALS: O2SAT 93
[2018-04-05] MEDS: HYDROCODONE/APAP 7.5/325 MG TAB PO PRN (18:12)
[2018-04-05] MEDS: ATORVASTATIN 20 MG TAB PO SCH (21:51)
[2018-04-05] MEDS: QUETIAPINE 100MG TAB PO SCH (21:51)
[2018-04-06] MEDS: LEVOTHYROXINE SOD 0.088 MG TAB PO SCH (06:19)
[2018-04-06] MEDS: INSULIN -REGULAR HUMAN 50 UNIT/0.5 ML ML SQ SCH ×2 (07:30→11:30)
--- NOTE | 2018-04-06 08:26 | P.PN ---
Subjective Date of Service: 04/06/18 Chief Complaint: s/p left hip nail Subjective: No new changes Review of Systems 10-point ROS is otherwise unremarkable Physical Examination - Vital Signs Temperature: 97.6 F Blood Pressure: 153/70 Pulse: 75 Respirations: 20 Pulse Ox (%): 94 - Physical Exam General: Alert, In no apparent distress HEENT: Atraumatic, PERRLA, EOMI Neck: Supple, JVD not distended Respiratory: Clear to auscultation bilaterally, Normal air movement Cardiovascular: Regular rate/rhythm, Normal S1 S2 Gastrointestinal: Normal bowel sounds, No tenderness Musculoskeletal: No tenderness Integumentary: No rashes Neurological: Normal speech, Normal tone, Normal affect Lymphatics: No axilla or inguinal lymphadenopathy Assessment & Plan - Problems (Diagnosis) (1) Closed left hip fracture Onset Date: 03/30/18 Current Visit: Yes Status: Acute Plan: awaiting placement to [place]. Discharge was held yesterday waiting for insurance authorization. She has been accepted. Hopefully we can get authorization today. Qualifiers: Encounter type: subsequent encounter Fracture healing: with routine healing Qualified Code(s): S72.002D - Fracture of unspecified part of neck of left femur, subsequent encounter for closed fracture with routine healing (2) Diabetes 1.5, managed as type 2 Onset Date: 03/30/18 Current Visit: Yes Status: Acute Plan: Will continue home medications. With insulin sliding scale to cover (3) Alzheimer's dementia without behavioral disturbance Current Visit: No Status: Acute Plan: Will see about group home placement Qualifiers: Alzheimer's disease onset: late-onset Qualified Code(s): G30.1 - Alzheimer' s disease with late onset; F02.80 - Dementia in other diseases classified elsewhere without behavioral disturbance (4) CKD (chronic kidney disease), stage II Onset Date: 03/30/18 Current Visit: Yes Status: Acute Plan: slight elevation yesterday. However she is in her normal range. Will recheck. If she is below 1.7 we can send her to [place] (5) Anemia Current Visit: Yes Status: Acute Plan: Her anemia is improved. Will recheck today. If she falls below 7 will transfuse. Qualifiers: Anemia type: iron deficiency Iron deficiency anemia type: unspecified iron deficiency Qualified Code(s): D50.9 - Iron deficiency anemia, unspecified Discharge Plan: [facility] Plan to discharge in: 24 Hours - Code Status/Comfort Care Code Status Assessed: No Code Status: Full Code Physician Review: Patient Assessed, Agree with Above Assessment and Plan Critical Care: No Time Spent Managing Pts Care (In Minutes): 20
[2018-04-06] MEDS: PANTOPRAZOLE 40MG TABLET PO SCH (08:27)
[2018-04-06] MEDS: ENOXAPARIN 30 MG/0.3 ML SQ SCH (10:20)
[2018-04-06] MEDS: FEXOFENADINE HCL 60 MG PO SCH (10:20)
[2018-04-06] MEDS: RANITIDINE 150 MG TABLET PO SCH (10:21)
[2018-04-06] MEDS: glipiZIDE 5 MG TAB PO SCH (10:21)
[2018-04-06] MEDS: FUROSEMIDE 40 MG TABLET PO SCH (10:21)
[2018-04-06] MEDS: SITAGLIPTIN PHOS 100 MG TAB PO SCH (10:22)
[2018-04-06] MEDS: DOCUSATE NA 100 MG CAP PO SCH (10:22)
[2018-04-06] MEDS: GABAPENTIN 100 MG CAP PO SCH (10:22)
[2018-04-06] MEDS: CYANOCOBALAMIN 1,000 MCG TAB PO SCH (10:22)
[2018-04-06] MEDS: FOLIC ACID 1 MG TABLET PO SCH (10:22)
[2018-04-06] MEDS: HYDROCODONE/APAP 7.5/325 MG TAB PO PRN (14:14)
[2018-04-07 13:59] VITALS: BP 143/65; TEMP 97.6
== END 2018-04-06 16:23 | DRG 480 ==
LOC: ER 12:49 → ERHOLD 14:27 → 2ND 15:44
PROVIDERS: ADMIT Internal Medicine; ATTEND Internal Medicine
PROC: 0QS704Z Reposition Left Upper Femur with Internal Fixation Device, Open Approach (ICD-10-PCS; principal; 2018-03-28 09:00)
PROC: 30233N1 Transfusion of Nonautologous Red Blood Cells into Peripheral Vein, Percutaneous Approach (ICD-10-PCS; 2018-03-31)
DX: S72.142A Displaced intertrochanteric fracture of left femur, initial encounter for closed fracture (principal); J18.9 Pneumonia, unspecified organism; D62 Acute posthemorrhagic anemia; D50.9 Iron deficiency anemia, unspecified; G30.1 Alzheimer's disease with late onset; F02.80 Dementia in other diseases classified elsewhere, unspecified severity, without behavioral disturbance, psychotic disturbance, mood disturbance, and anxiety; I12.9 Hypertensive chronic kidney disease with stage 1 through stage 4 chronic kidney disease, or unspecified chronic kidney disease; E11.22 Type 2 diabetes mellitus with diabetic chronic kidney disease; W01.0XXA Fall on same level from slipping, tripping and stumbling without subsequent striking against object, initial encounter; Y93.01 Activity, walking, marching and hiking; Y92.019 Unspecified place in single-family (private) house as the place of occurrence of the external cause; E11.65 Type 2 diabetes mellitus with hyperglycemia; G89.29 Other chronic pain; M54.9 Dorsalgia, unspecified; Z86.73 Personal history of transient ischemic attack (TIA), and cerebral infarction without residual deficits; E03.9 Hypothyroidism, unspecified; E78.2 Mixed hyperlipidemia; K21.9 Gastro-esophageal reflux disease without esophagitis; K59.03 Drug induced constipation; T40.2X5A Adverse effect of other opioids, initial encounter; Y92.230 Patient room in hospital as the place of occurrence of the external cause
CPT/HCPCS: 36415; 51702; 71045; 72170; 73530; 80048; 80053; 81003; 81015; 82274; 82962; 85014; 85018; 85025; 85044; 85610; 85730; 86850; 86900; 86901; 87086; 87088; 87493; 93005; 93306; 94760; 96361; 96374; 96375; 97163; 99285; J0456; J0696; J1650; J2370; J2405; J7030; P9016

== ENCOUNTER 2018-04-28 19:31 | Observation (INO) | payer OTHER ==
--- OUTSIDE RECORDS SUMMARY | 2018-04-28 19:33 | XMS REPORT ---
[...] Status Dosage System Date Date Clopidogrel ND 78439327598 75 MG Orally Active 1 tablet Bisulfate Once a day Vitamin B-12 ND 43581741186 1000 MCG Orally Active 1 tablet Once a day Donepezil HCl [facility] 52190326435 10 MG Orally Active 1 tablet Once a day at bedtime Ecotrin ND 38159239838 325 MG Orally Jul 05, Active 1 tablet Once a day 2019 Januvia ND 94043014598 100 MG Orally Active 1 tablet Once a day Fexofenadine HCl [facility] 05844240829 60 MG Orally Jul 05, Active 1 tablet Once a day 2018 as needed Stool Softener [facility] 64453697729 100 MG Orally Active 1 capsule Once a day as needed Gabapentin [facility] 62358266902 100 MG Orally Active 1 capsule Three times a day Quetiapine [facility] 98782597806 100 MG Orally Active 1 tablet Fumarate Once a day Levothyroxine [facility] 08607624005 88 MCG Orally Active 1 tablet Sodium Once a day on an empty stomach in the morning Ranitidine HCl [facility] 46906582993 300 MG Orally Active 1 tablet Once a day Furosemide [facility] 51813841094 40 MG Orally Sept Active 1 tablet Once a day 2017 Folic Acid [facility] 86379632523 1 MG Orally Active 1 tablet Once a day Results No Known Results Summary Purpose eClinicalWorks Submission
--- OUTSIDE RECORDS SUMMARY | 2018-04-28 19:33 | XMS REPORT ---
[...] End Status Dosage System Date Date Ecotrin [facility] [id number] 325 MG Orally Jul 05, Active 1 tablet Once a day 2019 Fexofenadine HCl [facility] 73634487906 60 MG Orally Jul 05, Active 1 tablet Once a day 2019 as needed Vitamin B-12 [facility] 06765299310 1000 MCG Orally Active 1 tablet Once a day Januvia [facility] 31300931876 100 MG Orally Active 1 tablet Once a day Folic Acid [facility] 04760782907 1 MG Orally Active 1 tablet Once a day Clopidogrel [facility] 08198865032 75 MG Orally Active 1 tablet Bisulfate Once a day Quetiapine [facility] 17306065579 100 MG Orally Active 1 tablet Fumarate Once a day Ferrous Sulfate [facility] 29105654492 325 (65 Fe) MG Inactive 1 tablet Orally Once a day Levothyroxine [facility] 46580424211 88 MCG Orally Active 1 tablet Sodium Once a day on an empty stomach in the morning Gabapentin [facility] 77024505014 100 MG Orally Active 1 capsule Three times a day GlipiZIDE [facility] 59333949248 10 MG Orally Inactive 1 tablet Twice a day Donepezil HCl [facility] 60046599246 10 MG Orally Active 1 tablet Once a day at bedtime Ranitidine HCl [facility] 10345911468 300 MG Orally Active 1 tablet Once a day Stool Softener [facility] 34527829162 100 MG Orally Active 1 capsule Once a day as needed Furosemide [facility] 98160491290 40 MG Orally Active 1 tablet Once a day Results No Known Results Summary Purpose eClinicalWorks Submission
--- OUTSIDE RECORDS SUMMARY | 2018-04-28 19:33 | XMS REPORT ---
[...] Status Dosage System Date Date Vitamin B-12 [facility] 62773483379 1000 MCG Orally Active 1 tablet Once a day Donepezil HCl [facility] 66718379578 10 MG Orally Active 1 tablet Once a day at bedtime Clopidogrel [facility] 99635101479 75 MG Orally Active 1 tablet Bisulfate Once a day Quetiapine [facility] 14217908990 100 MG Orally Active 1 tablet Fumarate Once a day Ranitidine HCl [facility] 90279118312 300 MG Orally Active 1 tablet Once a day Levothyroxine ND 89291711887 88 MCG Orally Active 1 tablet Sodium Once a day on an empty stomach in the morning Gabapentin [facility] 25750373656 100 MG Orally Active 1 capsule Three times a day Furosemide [facility] 12059472309 40 MG Orally Active 1 tablet Once a day Stool Softener [facility] 17644294943 100 MG Orally Active 1 capsule Once a day as needed Ecotrin [facility] 04965079501 325 MG Orally Jul 05, Active 1 tablet Once a day 2018uvia [facility] 47576536983 100 MG Orally Active 1 tablet Once a day Folic Acid [facility] 93354309864 1 MG Orally Active 1 tablet Once a day Fexofenadine HCl [facility] 89304801964 60 MG Orally Jul 05, Active 1 tablet Once a day 2018 as needed Results No Known Results Summary Purpose eClinicalWorks Submission
[2018-04-28] MEDS ORDERED: NA CHLORIDE 0.9% 1,000 ML ONE (20:03)
--- NOTE | 2018-04-28 20:26 | RAD REPORT ---
EXAM DESCRIPTION: CT - Head C Spine Cap Wo Con - 04/28/2018 8:04 pm CLINICAL HISTORY: Trauma, head and neck injury. Chest, abdomen and pelvis pain. PAIN COMPARISON: Head C Spine Cap Wo Con dated 02/16/2018; Head Brain Wo Cont dated 02/13/2018; Stone Miguel col dated 10/20/2017 TECHNIQUE: CT head without contrast. CT cervical spine without contrast with coronal and sagittal reformatted images. CT chest, abdomen and pelvis without contrast with coronal and sagittal reformatted images of the spi ne. All CT scans are performed using dose optimization technique as appropriate and may include automated exposure control or mA/KV adjustment according to patient size. FINDINGS: CT HEAD WITHOUT CONTRAST: No intracranial hemorrhage, hydrocephalus or extra-axial fluid collection. Advanced generalized brain atrophy is present with advanced periventricular and deep white matter chronic microvascular ischemi c changes. No areas of brain edema or midline shift. Sclerosis of the right mastoid air cells noted. The paranasal sinuses and mastoids are otherwise karie r. The calvarium is intact. CT CERVICAL SPINE WITHOUT CONTRAST: No fracture or subluxation. Mild multilevel degenerative spondylosis is present with evidence of prom inent disc herniation at C3-4. The prevertebral soft tissues are normal in thickness. CT CHEST, ABDOMEN, PELVIS WITHOUT CONTRAST: NOTE: Lack of contrast is a significant limitation in the assessment of trauma related findings. Spec ifically, solid organ, vascular and bowel evaluation is significantly limited. The lungs are clear.No pneumothorax or pericardial/pleural fluid. No evidence of intra-abdominal visceral injury, free fluid or free air is seen within the above detai led limitations. Hardware is present in both proximal femurs with evidence of relatively recent proximal left femoral fracture. An acute fracture is not seen. IMPRESSION: Negative for acute traumatic findings within the above detailed limitations.
--- NOTE | 2018-04-28 20:55 | RAD REPORT ---
EXAM DESCRIPTION: RAD - Knee Left 3 View - 04/28/2018 8:45 pm CLINICAL HISTORY: PAIN Trauma, fall COMPARISON: No comparisons FINDINGS: No acute fracture or dislocation is seen. No joint effusion is evident.
--- NOTE | 2018-04-28 20:55 | RAD REPORT ---
EXAM DESCRIPTION: RAD - Chest Single View - 04/28/2018 8:47 pm CLINICAL HISTORY: COUGH Chest pain. COMPARISON: Chest Single View dated 03/27/2018; Chest Single View dated 10/20/2017 FINDINGS: Portable technique limits examination quality. The lungs are grossly clear. The heart is normal in size. No displaced fractures.Sternotomy wires not ed. IMPRESSION: No acute intrathoracic process suspected.
--- NOTE | 2018-04-28 20:55 | RAD REPORT ---
EXAM DESCRIPTION: RAD - Hip Right 2 View - 04/28/2018 8:45 pm CLINICAL HISTORY: PAIN Fall COMPARISON: No comparisons FINDINGS: Right total hip arthroplasty is noted. No acute process identified.
--- NOTE | 2018-04-28 20:55 | RAD REPORT ---
EXAM DESCRIPTION: RAD - Pelvis - 04/28/2018 8:45 pm CLINICAL HISTORY: PAIN COMPARISON: Hip In Or dated 03/28/2018 FINDINGS: Right total hip arthroplasty is noted. Proximal left femoral nail is seen with fracture [facility] in the proximal left femur still present. No new fracture is suspected.
--- NOTE | 2018-04-28 20:56 | RAD REPORT ---
EXAM DESCRIPTION: RAD - Forearm Right - 04/28/2018 8:46 pm CLINICAL HISTORY: PAIN Trauma, fall COMPARISON: No comparisons FINDINGS: Diffuse osteopenia is seen. No acute fracture or dislocation identified.
--- NOTE | 2018-04-28 20:56 | RAD REPORT ---
EXAM DESCRIPTION: RAD - Knee Right 3 View - 04/28/2018 8:46 pm CLINICAL HISTORY: PAIN Trauma, fall COMPARISON: No comparisons FINDINGS: No acute fracture or dislocation seen.
--- NOTE | 2018-04-28 21:13 | EDPHYS ---
Physician Documentation [facility] Name: Wen Aguirre Age: 82 yrs Sex: Female : 1935 Arrival Date: 04/28/2018 Time: 19:35 Bed 3 Private MD: ED Physician Broderick Orozco HPI: 04/28 19:52 This 82 yrs old Female presents to ER via EMS with complaints of fall, eldon transfering hit head. 19:52 The patient or guardian reports abrasion, pain, swelling, tenderness. The complaints eldon affect the forehead. Context of injury: The problem was sustained at a jail or assisted living facility. Onset: The symptoms/episode began/occurred just prior to arrival. The patient presents with an abrasion. The complaints affect the face. The complaints affect the left vieira. Historical: - Allergies: 20:12 No Known Allergies; ea - Home Meds: 20:12 aspirin 81 mg Oral TbEC 1 tab once daily [Active]; Claritin 10 mg Oral tab 1 tab once ea daily [Active]; cyanocobalamin (vitamin B-12) 500 mcg oral tab [Active]; Colace 100 mg Oral cap 1 cap once daily [Active]; folic acid 1 mg Oral tab 1 tab once daily [Active]; furosemide 40 mg Oral tab 1 tab once daily [Active]; gabapentin 100 mg Oral cap 1 caps 3 times per day [Active]; Hemocyte-Plus 106 mg iron- 1 mg oral cap 1 cap once daily [Active]; levothyroxine 88 mcg tab 1 tab once daily [Active]; lovastatin 40 mg Oral tab 1 tab once daily [Active]; metformin 500 mg Oral Tb24 1 tab once daily [Active]; clopidogrel 75 mg Oral tab 1 tab once daily [Active]; pantoprazole 40 mg Oral TbEC 1 tab once daily [Active]; ranitidine HCl 300 mg Oral cap 1 cap once daily [Active]; Seroquel 100 mg Oral tab 1 tab QHS [Active]; tramadol 50 mg Oral tab 1 tab every 8 hours [Active]; - PMHx: 20:12 Arthritis; Hypertension; Diabetes - NIDDM; Back pain; GERD; Anemia; Dementia; ea Hypothyroidism; neuropathy; - Immunization history:: Adult Immunizations unknown. - Social history:: Smoking status: Patient/guardian denies using tobacco. - Immunization history: Last tetanus immunization: unknown. - Family history:: not pertinent. - Ebola Screening: : No symptoms or risks identified at this time. ROS: 19:52 Constitutional: Negative for fever, chills, and weight loss, Eyes: Negative for injury, eldon pain, redness, and discharge, ENT: Negative for injury, pain, and discharge, Neck: Negative for injury, pain, and swelling, Cardiovascular: Negative for chest pain, palpitations, and edema, Respiratory: Negative for shortness of breath, cough, wheezing, and pleuritic chest pain, Abdomen/GI: Negative for abdominal pain, nausea, vomiting, diarrhea, and constipation, Back: Negative for injury and pain, : Negative for injury, bleeding, discharge, and swelling, MS/Extremity: Negative for injury and deformity, Skin: Negative for injury, rash, and discoloration, Psych: Negative for depression, anxiety, suicide ideation, homicidal ideation, and hallucinations, Allergy/Immunology: Negative for hives, rash, and allergies, Endocrine: Negative for neck swelling, polydipsia, polyuria, polyphagia, and marked weight changes, Hematologic/Lymphatic: Negative for swollen nodes, abnormal bleeding, and unusual bruising. 19:52 Neuro: Positive for headache, weakness. Exam: 19:52 Constitutional: This is a well developed, well nourished patient who is awake, alert, eldon and in no acute distress. Eyes: Pupils equal round and reactive to light, extra-ocular motions intact. Lids and lashes normal. Conjunctiva and sclera are non-icteric and not injected. Cornea within normal limits. Periorbital areas with no swelling, redness, or edema. ENT: Nares patent. No nasal discharge, no septal abnormalities noted. Tympanic membranes are normal and external auditory canals are clear. Oropharynx with no redness, swelling, or masses, exudates, or evidence of obstruction, uvula midline. Mucous membranes moist. Neck: Trachea midline, no thyromegaly or masses palpated, and no cervical lymphadenopathy. Supple, full range of motion without nuchal rigidity, or vertebral point tenderness. No Meningismus. Chest/axilla: Normal chest wall appearance and motion. Nontender with no deformity. No lesions are appreciated. Cardiovascular: Regular rate and rhythm with a normal S1 and S2. No gallops, murmurs, or rubs. Normal PMI, no JVD. No pulse deficits. Respiratory: Lungs have equal breath sounds bilaterally, clear to auscultation and percussion. No rales, rhonchi or wheezes noted. No increased work of breathing, no retractions or nasal flaring. Abdomen/GI: Soft, non-tender, with normal bowel sounds. No distension or tympany. No guarding or rebound. No evidence of tenderness throughout. Back: No spinal tenderness. No costovertebral tenderness. Full range of motion. Female : Normal external genitalia. Neuro: Awake and alert, GCS 15, oriented to person, place, time, and situation. Cranial nerves II-XII grossly intact. Motor strength 5/5 in all extremities. Sensory grossly intact. Cerebellar exam normal. Normal gait. Psych: Awake, alert, with orientation to person, place and time. Behavior, mood, and affect are within normal limits. 19:52 Head/face: Noted is contusion, that is superficial, of the forehead. 19:52 Musculoskeletal/extremity: ROM: full active range of motion, full passive range of motion, Circulation is intact in all extremities. Sensation intact. Compartment Syndrome exam of affected extremity: is normal. DVT Exam: no tenderness, negative Homans' sign noted on exam, no appreciated bluish discoloration, no erythema, no increased warmth, pain, swelling. 19:52 Skin: Appearance: Color: pale, Temperature: normal temperature, Moisture: normal moisture, petechiae, not noted, ecchymosis, not noted, flushing, not noted, diaphoresis is not appreciated. 21:08 Abdomen/GI: Rectal exam: is unremarkable, rectal tone normal, Stool: normal, guaiac eldon negative, hemorrhoid(s), are not appreciated, mass, is not appreciated, swelling, is not appreciated, Liver: no appreciated palpable abnormalities. Vital Signs: 19:35 BP 152 / 69; Pulse 78; Resp 18; Temp 97.7; Pulse Ox 99% on R/A; Weight 58.97 kg; Height ea 5 ft. (152.40 cm); Pain 8/10; 21:00 BP 122 / 54; Pulse 77; Resp 18; Temp 97.2; Pulse Ox 100% on R/A; ea 22:30 BP 147 / 57; Pulse 77; Resp 16; Pulse Ox 100% on R/A; ea 23:00 BP 141 / 49; Pulse 79; Resp 16; Temp 97.6(O); Pulse Ox 100% ; ea 04/29 00:24 BP 162 / 60; Pulse 78; Resp 18; Temp 97; Pulse Ox 99% ; 04/28 19:35 Body Mass Index 25.39 (58.97 kg, 152.40 cm) ea Lyle Coma Score: 04/28 19:35 Eye Response: spontaneous(4). Verbal Response: confused(4). Motor Response: obeys ea commands(6). Total: 14. 21:00 Eye Response: spontaneous(4). Verbal Response: confused(4). Motor Response: obeys ea commands(6). Total: 14. 22:30 Eye Response: spontaneous(4). Verbal Response: confused(4). Motor Response: obeys ea commands(6). Total: 14. 23:00 Eye Response: spontaneous(4). Verbal Response: oriented(5). Motor Response: obeys ea commands(6). Total: 15. 04/29 00:24 Eye Response: spontaneous(4). Verbal Response: oriented(5). Motor Response: obeys ea commands(6). Total: 15. Trauma Score (Adult): 04/28 19:35 Eye Response: spontaneous(1); Verbal Response: confused(1); Motor Response: obeys ea commands(2); Systolic BP: > 89 mm Hg(4); Respiratory Rate: 10 to 29 per min(4); [place] Score: 14; Trauma Score: 12 MDM: 19:42 Patient medically screened. [facility] 19:56 Data reviewed: vital signs, nurses notes, lab test result(s), EKG, radiologic studies, [facility] CT scan, plain films. 04/28 19:48 Order name: Basic Metabolic Panel; Complete Time: 21:48 [facility] 04/28 19:48 Order name: CBC with Diff; Complete Time: 21:48 [facility] 04/28 19:48 Order name: LFT's; Complete Time: 21:48 [facility] 04/28 19:48 Order name: Magnesium; Complete Time: 21:48 [facility] 04/28 19:48 Order name: NT PRO-BNP; Complete Time: 21:48 [facility] 04/28 19:48 Order name: PT-INR; Complete Time: 21:48 [facility] 04/28 19:48 Order name: Troponin (emerg Dept Use Only); Complete Time: 21:48 [facility] 04/28 19:48 Order name: XRAY Chest (1 view); Complete Time: 21:03 [facility] 04/28 19:48 Order name: CT Traumagram (Head C Spine CAP wo con); Complete Time: 20:46 [facility] 04/28 19:48 Order name: Urine Culture [facility] 04/28 19:48 Order name: Type And Screen; Complete Time: 23:12 [facility] 04/28 20:00 Order name: Pelvis XRAY; Complete Time: 21:03 [facility] 04/29 00:19 Order name: Urine Dipstick--Ancillary (enter results) tx 04/29 00:45 Order name: Urine Dipstick-Ancillary [facility] 04/28 19:48 Order name: EKG; Complete Time: 19:48 [facility] 04/28 19:48 Order name: Cardiac monitoring; Complete Time: 21:06 [facility] 04/28 19:48 Order name: EKG - Nurse/Tech; Complete Time: 21:06 [facility] 04/28 19:48 Order name: IV Saline Lock; Complete Time: 21:06 [facility] 04/28 19:48 Order name: Labs collected and sent; Complete Time: 21:06 [facility] 04/28 19:48 Order name: O2 Per Protocol; Complete Time: 19:54 [facility] 04/28 19:48 Order name: O2 Sat Monitoring; Complete Time: 19:54 [facility] 04/28 19:48 Order name: Urine Dipstick-Ancillary (obtain specimen); Complete Time: 00:18 [facility] 04/28 20:00 Order name: Hip Right 2 View XRAY; Complete Time: 21:03 [facility] 04/28 20:05 Order name: Knee Left 3 View XRAY; Complete Time: 21:03 [facility] 04/28 20:05 Order name: Forearm Right XRAY; Complete Time: 21:03 [facility] 04/28 20:22 Order name: Knee Right 3 View; Complete Time: 21:03 [facility] 04/28 21:50 Order name: Lisa; Complete Time: 23:25 [facility] Administered Medications: 21:06 Drug: NS 0.9% 1000 ml Route: IV; Rate: 125 ml/hr; Site: right antecubital; jd3 04/29 00:18 Follow up: Response: No adverse reaction; IV Status: Infusion continued upon admission jd3 Disposition: 04/28/18 21:13 Hospitalization ordered by Dinorah Colbert for Observation. Preliminary diagnosis are Fall due to bumping against object, Superficial injury of head, Weakness, Unspecified kidney failure, Type 2 diabetes mellitus. - Bed requested for Telemetry/MedSurg (observation). - Status is Observation. jd3 - Condition is Fair. - Problem is new. - Symptoms have improved. UTI on Admission? No Signatures: Dispatcher [employer] EDEllie Justice RN Broderick Bhatia MD MD cha Antunez, Elena RN Kodi Tejeda ea, RN RN jtatianna Corrections: (The following items were deleted from the chart) 04/28 21:27 21:13 Hospitalization Ordered by Dinorah Colbert MD for Observation. Preliminary kl diagnosis is Fall due to bumping against object; Superficial injury of head; Weakness. Bed requested for Telemetry/MedSurg (observation). Status is Observation. Condition is Fair. Problem is new. Symptoms have improved. UTI on Admission? No. eldon 21:50 21:27 04/28/2018 21:13 Hospitalization Ordered by Dinorah Colbert MD for Observation. eldon Preliminary diagnosis is Fall due to bumping against object; Superficial injury of head; Weakness. Bed requested for Telemetry/MedSurg (observation). Status is Observation. Condition is Fair. Problem is new. Symptoms have improved. UTI on Admission? No. chava 04/29 00:53 04/28 21:50 04/28/2018 21:13 Hospitalization Ordered by Dinorah Colbert MD for jd3 Observation. Preliminary diagnosis is Fall due to bumping against object; Superficial injury of head; Weakness; Unspecified kidney failure; Type 2 diabetes mellitus. Bed requested for Telemetry/MedSurg (observation). Status is Observation. Condition is Fair. Problem is new. Symptoms have improved. UTI on Admission? No. eldon
--- NOTE | 2018-04-28 21:13 | ER ---
Nurse's Notes [facility] Name: Wen Aguirre Age: 82 yrs Sex: Female : 1935 Arrival Date: 04/28/2018 Time: 19:35 Bed 3 Private MD: Diagnosis: Fall due to bumping against object;Superficial injury of head;Weakness;Unspecified kidney failure;Type 2 diabetes mellitus Presentation: 04/28 19:35 Presenting complaint: EMS states: Called to [facility], facility nursing ea staff reported pt had fallen trying to transfer from wheelchair to bed, nursing staff reported pt denied LOC, complained of pain to right hip that radiated to right knee. Transition of care: patient was received from another setting of care (long-term care [facility]. Onset of symptoms was April 28, 2018. Risk Assessment: Do you want to hurt yourself or someone else? Patient reports no desire to harm self or others. Initial Sepsis Screen: Does the patient meet any 2 criteria? No. Patient's initial sepsis screen is negative. Does the patient have a suspected source of infection? No. Patient's initial sepsis screen is negative. Care prior to arrival: BP: 144/66 HR: 78 RR:16 O2 at 98% RA. 19:35 Method Of Arrival: EMS: [facility] ea 19:35 Acuity: ELSA 3 ea 19:35 Mechanism of Injury: Fall from standing position. Trauma event details: Injury occurred ea in the [facility], Injury occurred: [facility] Injury occurred: April 28, 2018 Injury occurred at: 18:50. Triage Assessment: 19:35 General: Appears in no apparent distress. Behavior is calm, cooperative. Pain: ea Complains of pain in right hip Pain radiates to right knee Pain currently is 8 out of 10 on a pain scale. Neuro: Level of Consciousness is awake, alert, obeys commands, Oriented to person, place. Cardiovascular: Patient's skin is warm and dry. Respiratory: Airway is patent Respiratory effort is even, unlabored, Respiratory pattern is regular, symmetrical. Derm: Skin is pale. Injury Description: Head injury sustained to forehead. Trauma Activation: Alert Physician: ED Physician; Name: ; Notified At: 19:27; Arrived At: Physician: General Surgeon; Name: ; Notified At: 19:27; Arrived At: Physician: Radiology; Name: ; Notified At: 19:27; Arrived At: Physician: Respiratory; Name: ; Notified At: 19:27; Arrived At: Physician: Lab; Name: ; Notified At: 19:27; Arrived At: Historical: - Allergies: 20:12 No Known Allergies; ea - Home Meds: 20:12 aspirin 81 mg Oral TbEC 1 tab once daily [Active]; Claritin 10 mg Oral tab 1 tab once ea daily [Active]; cyanocobalamin (vitamin B-12) 500 mcg oral tab [Active]; Colace 100 mg Oral cap 1 cap once daily [Active]; folic acid 1 mg Oral tab 1 tab once daily [Active]; furosemide 40 mg Oral tab 1 tab once daily [Active]; gabapentin 100 mg Oral cap 1 caps 3 times per day [Active]; Hemocyte-Plus 106 mg iron- 1 mg oral cap 1 cap once daily [Active]; levothyroxine 88 mcg tab 1 tab once daily [Active]; lovastatin 40 mg Oral tab 1 tab once daily [Active]; metformin 500 mg Oral Tb24 1 tab once daily [Active]; clopidogrel 75 mg Oral tab 1 tab once daily [Active]; pantoprazole 40 mg Oral TbEC 1 tab once daily [Active]; ranitidine HCl 300 mg Oral cap 1 cap once daily [Active]; Seroquel 100 mg Oral tab 1 tab QHS [Active]; tramadol 50 mg Oral tab 1 tab every 8 hours [Active]; - PMHx: 20:12 Arthritis; Hypertension; Diabetes - NIDDM; Back pain; GERD; Anemia; Dementia; ea Hypothyroidism; neuropathy; - Immunization history:: Adult Immunizations unknown. - Social history:: Smoking status: Patient/guardian denies using tobacco. - Immunization history: Last tetanus immunization: unknown. - Family history:: not pertinent. - Ebola Screening: : No symptoms or risks identified at this time. Screenin:44 Abuse screen: Denies threats or abuse. Nutritional screening: No deficits noted. jd3 Tuberculosis screening: No symptoms or risk factors identified. Fall Risk Fall in past 12 months (25 points). Ambulatory Aid- None/Bed Rest/Nurse Assist (0 pts). Gait- Weak (10 pts.). Mental Status- Overestimates/Forgets Limitations (15 pts.). Total Shen Fall Scale indicates High Risk Score (45 or more points). Fall prevention measures have been instituted. Side Rails Up X 2 Placed Close to Nursing Station Frequent Obs/Assessments Occuring. Primary Survey: 19:35 A: Airway: patent, No supplemental oxygen in use on arrival. Oral cavity: clear, jd3 Trachea midline. Breathing/Chest: Respiratory pattern: regular, Respiratory effort: spontaneous, unlabored, Breath sounds: clear, bilaterally. Chest inspection: symmetrical rise and fall of the chest. Circulation: Heart tones present. Skin color: pink, Skin temperature: warm. Disability Alert. 21:00 Reassessment Airway Airway Patent Breathing/Chest Respiratory pattern Regular ea Respiratory effort Spontaneous Unlabored Breath sounds Clear Circulation Temperature Warm. Secondary Survey: 19:36 HEENT: Head No injury/deformity Face No injury/deformity Eyes: Other pt wanting it keep jd3 right eye closed, denies pain Ears: clear Nose: clear Throat: No injury or deformity noted. Gastrointestinal: No deficits noted. Abdomen is soft, non-distended. : No signs and/or symptoms were reported regarding the genitourinary system. Musculoskeletal: Circulation, motion, and sensation intact. Range of motion: limited in right hip wound dressing noted to lower left leg, pt reported scratching herself earlier in the week. Assessment: 19:40 General: Appears uncomfortable, Behavior is calm, cooperative. Pain: Complains of pain jd3 in right hip Quality of pain is described as aching. Neuro: Level of Consciousness is awake, alert, obeys commands, Oriented to person, place, time, situation, Appropriate for age. Cardiovascular: Heart tones S1 S2 present Capillary refill < 3 seconds Patient's skin is warm and dry. Respiratory: Airway is patent Respiratory effort is even, unlabored, Respiratory pattern is regular, symmetrical, Breath sounds are clear bilaterally. GI: No signs and/or symptoms were reported involving the gastrointestinal system. Abdomen is round non-distended, Patient currently denies abdominal pain. : No signs and/or symptoms were reported regarding the genitourinary system. EENT: No signs and/or symptoms were reported regarding the EENT system. Derm: Skin is intact, Skin is dry, Skin is pale, Skin temperature is warm Wound noted left vieira Other: dressing in place, pt reported cutting herself earlier in the week. Musculoskeletal: Circulation, motion, and sensation intact. Range of motion: limited in right hip. 21:00 Reassessment: Patient and/or family updated on plan of care and expected duration. Pain ea level reassessed. Pt returned from radiology. Pt alert and oriented to self and place. Respirations even and unlabored chest expansions symmetrical. 21:40 Reassessment: Pt alert and oriented to self, respirations even and unlabored. Chest ea expansions even and symmetrical. No s/s of pain or discomfort at this time. Multiple attempt to straight cath and place Lisa, no urine return at this time. 04/29 00:04 Reassessment: Patient and/or family updated on plan of care and expected duration. Pain ea level reassessed. Report called to Larissa ORELLANA. Vital Signs: 04/28 19:35 BP 152 / 69; Pulse 78; Resp 18; Temp 97.7; Pulse Ox 99% on R/A; Weight 58.97 kg; Height ea 5 ft. (152.40 cm); Pain 8/10; 21:00 BP 122 / 54; Pulse 77; Resp 18; Temp 97.2; Pulse Ox 100% on R/A; ea 22:30 BP 147 / 57; Pulse 77; Resp 16; Pulse Ox 100% on R/A; ea 23:00 BP 141 / 49; Pulse 79; Resp 16; Temp 97.6(O); Pulse Ox 100% ; ea 04/29 00:24 BP 162 / 60; Pulse 78; Resp 18; Temp 97; Pulse Ox 99% ; ea 04/28 19:35 Body Mass Index 25.39 (58.97 kg, 152.40 cm) ea [place] Coma Score: 04/28 19:35 Eye Response: spontaneous(4). Verbal Response: confused(4). Motor Response: obeys ea commands(6). Total: 14. 21:00 Eye Response: spontaneous(4). Verbal Response: confused(4). Motor Response: obeys ea commands(6). Total: 14. 22:30 Eye Response: spontaneous(4). Verbal Response: confused(4). Motor Response: obeys ea commands(6). Total: 14. 23:00 Eye Response: spontaneous(4). Verbal Response: oriented(5). Motor Response: obeys ea commands(6). Total: 15. 04/29 00:24 Eye Response: spontaneous(4). Verbal Response: oriented(5). Motor Response: obeys ea commands(6). Total: 15. Trauma Score (Adult): 04/28 19:35 Eye Response: spontaneous(1); Verbal Response: confused(1); Motor Response: obeys ea commands(2); Systolic BP: > 89 mm Hg(4); Respiratory Rate: 10 to 29 per min(4); Lyle Score: 14; Trauma Score: 12 ED Course: 19:35 Patient arrived in ED. jd3 19:35 Thermoregulation: warm blanket given to patient. ea 19:35 Patient has correct armband on for positive identification. Bed in low position. Call ea light in reach. Side rails up X2. 19:35 Arm band placed on right wrist. Patient placed in an exam room, on a stretcher, on ea pulse oximetry. 19:36 Laya Freire, REYNA is Primary Nurse. ea 19:41 Triage completed. ea 19:42 Broderick Orozco MD is Attending Physician. eldon 19:46 Patient maintains SpO2 saturation greater than 95% on room air. jd3 20:03 CT Traumagram (Head C Spine CAP wo con) In Process Unspecified. EDMS 20:46 XRAY Chest (1 view) In Process Unspecified. EDMS 20:46 Pelvis XRAY In Process Unspecified. EDMS 20:46 Hip Right 2 View XRAY In Process Unspecified. EDMS 20:46 Knee Left 3 View XRAY In Process Unspecified. EDMS 20:46 Forearm Right XRAY In Process Unspecified. EDMS 20:46 Knee Right 3 View In Process Unspecified. EDMS 21:09 Dinorah Colbert MD is Hospitalizing Provider. eldon 22:02 No provider procedures requiring assistance completed. Patient admitted, IV remains in ea place. 23:38 Lisa cath inserted, using sterile technique, 16 Fr., balloon inflated, to gravity ea drainage, other awaiting for urine output. 04/29 00:05 Bladder scan completed. 537. mt 00:10 Previous 16 Fr Lisa discontinued due to no urine output. ea 00:18 Lisa cath inserted, using sterile technique, 16 Fr., by ED staff, balloon inflated, to ea gravity drainage, urine specimen collected. Administered Medications: 04/28 21:06 Drug: NS 0.9% 1000 ml Route: IV; Rate: 125 ml/hr; Site: right antecubital; jd3 04/29 00:18 Follow up: Response: No adverse reaction; IV Status: Infusion continued upon admission jd3 Intake: 00:40 IV: 250ml; Total: 250ml. ea Output: 00:40 Urine: 350ml (Lisa); Total: 350ml. ea Outcome: 04/28 21:13 Decision to Hospitalize by Provider. eldon 22:13 Instructed on the need for admit, Demonstrated understanding of instructions. ea 04/29 00:23 Condition: stable ea 00:23 Admitted to Med/surg accompanied by tech, room 203, with chart, Report called to Larissa menjivar RN 00:23 Patient's length of stay in the Emergency Department was greater than 2 hours. pt hospitalizedPatient's length of stay extended due to 00:53 Patient left the ED. jd3 Signatures: Dispatcher [employer] EDMT Broderick Orozco MD MD cha Thompson, [facility] Laya Freire, Kodi Tejeda RN, ea, RN RN jd3 Corrections: (The following items were deleted from the chart) 04/28 19:39 19:36 Musculoskeletal: Circulation, motion, and sensation intact. Range of motion: jd3 limited in right hip jd3 20:03 19:40 Derm: Skin is intact, Skin is dry, Skin is normal, Skin temperature is warm Wound jd3 noted left vieira Other: dressing in place, pt reported cutting herself earlier in the week. jd3 22:12 21:40 Reassessment: Pt alert and oriented to self, respirations even and unlabored. ea Chest expansions even and symmetrical. No s/s of pain or discomfort at this time. Attempt to place Lisa, no urine return at this time. ea
[2018-04-28 21:17] LABS: Absolute Lymphocytes (CBC) 2.2 K/uL (0.7-4.9); Absolute Monocytes 0.6 K/uL (0.1-1.3); Absolute Neutrophil 5.2 K/uL (1.8-8.0); Basophils % 0.8 % (0-1.3); Eosinophils % 8.6 % (0-4.4); Hematocrit 32.5 % (36.0-45.0); Lymphocytes % 24.7 % (15.3-44.8); MCH 29.6 pg (27.0-35.0); MCV 91.2 fL (80-100); MPV 10.2 fL (7.6-11.3); Monocytes % 6.8 % (3.3-12.3); RBC Red Blood Cell Count 3.56 M/uL (3.86-4.86)
[2018-04-28 21:40] LABS: Protime INR 1.08
[2018-04-28 21:42] LABS: ALT/SGPT 14 U/L (12-78); AST/SGOT 14 U/L (15-37); Albumin 3.1 g/dL (3.4-5.0); Alkaline Phosphatase 164 U/L (45-117); BUN Blood Urea Nitrogen 28 mg/dL (7-18); Bicarbonate 27 mmol/L (21-32); Bilirubin Direct < 0.1 mg/dL (0-0.2); Bilirubin Total 0.1 mg/dL (0.2-1.0); Glucose Level 244 mg/dL (74-106); Magnesium 1.9 mg/dL (1.8-2.4); NT PRO-BNP 2108 pg/mL (<450); Potassium 4.1 mmol/L (3.5-5.1); Protein, Total 7.4 g/dL (6.4-8.2); Sodium Level 141 mmol/L (136-145); Troponin (Emerg Dept Use Only) < 0.02 ng/mL (0.0-0.045)
[2018-04-28] MEDS ORDERED: ACETAMINOPHEN 500 MG TAB PO PRN (23:34)
[2018-04-28] MEDS ORDERED: ONDANSETRON 4 MG/2 ML VIAL IV PRN (23:34)
[2018-04-29 00:45] LABS: Urine Blood TRACE (NEG); Urine Glucose NEGATIVE (NEG); Urine Protein 2+ (NEG); Urine pH 5.5 (5.0-7.0)
[2018-04-29] MEDS: NA CHLORIDE 0.9% 1,000 ML IV SCH ×2 (01:12→13:05)
[2018-04-29 01:14] VITALS: BMI 46.6
[2018-04-29 05:48] LABS: Absolute Lymphocytes (CBC) 2.2 K/uL (0.7-4.9); Absolute Monocytes 0.5 K/uL (0.1-1.3); Absolute Neutrophil 5.5 K/uL (1.8-8.0); Basophils % 0.7 % (0-1.3); Eosinophils % 10.1 % (0-4.4); Lymphocytes % 23.9 % (15.3-44.8); MCH 30.7 pg (27.0-35.0); MCV 89.7 fL (80-100); MPV 9.9 fL (7.6-11.3); Monocytes % 5.6 % (3.3-12.3); RBC Red Blood Cell Count 3.34 M/uL (3.86-4.86)
[2018-04-29 06:07] LABS: Albumin 2.8 g/dL (3.4-5.0); Bilirubin Total 0.2 mg/dL (0.2-1.0); Potassium 3.6 mmol/L (3.5-5.1); Protein, Total 6.5 g/dL (6.4-8.2)
--- NOTE | 2018-04-29 13:34 | EKG ---
Test Date: 2018-04-28 Test Time: 20:51:09 Clinical Trial Specialist: ELAINE MEASUREMENT RESULTS: Intervals: Rate: 80 ND: 170 QRSD: 122 QT: 432 QTc: 498 [place]: P: 52 ND: 170 QRS: 2 T: 6 INTERPRETIVE STATEMENTS: Sinus rhythm with occasional premature ventricular complexes Right bundle branch block Inferior infarct, age undetermined Abnormal ECG Compared to ECG 03/26/2018 13:03:40 Ventricular premature complex(es) now present Myocardial infarct finding now present Electronically Signed On 04-29-18 13:33:54 CLAIMS ADJUSTER CROP by Ranjeet Sosa
--- NOTE | 2018-04-29 17:18 | P.PN ---
Date of Service: 04/29/18 Patient is my halfway patient in [place]. Was sent for a fall. She tends to do this. She has no complaints of pain this morning. She had a negative CT scan. She is bit unsteady standing and only takes a few steps. Our Physical therapist recalls this is about where she was on the last admission. Will try to get her back to [place].
--- NOTE | 2018-04-30 02:22 | P.HP ---
Certification for Inpatient Patient admitted to: Observation With expected LOS: <2 Midnights Patient will require the following post-hospital care: None Practitioner: I am a practitioner with admitting privileges, knowledge of patient current condition, hospital course, and medical plan of care. Services: Services provided to patient in accordance with Admission requirements found in Title 42 Section 412.3 of the Code of Federal Regulations Patient History Date of Service: 04/28/18 Reason for admission: AMS History of Present Illness: Patient is an 82-year-old female who presents to the hospital after a fall. Patient was that would [facility] when she got up out of bed. While getting out of bed she tripped and fell. She apparently struck the front of her scalp after falling as well as injuring her vieira. She was brought into the emergency room for further evaluation. In the emergency room patient had a CT traumogram. This was negative. Patient was admitted to the hospital for observation. Allergies No Known Allergies Allergy (Verified 04/29/18 02:29) Home Medications: Aspirin [Ecotrin 81 MG] 81 mg PO DAILY 02/17/18 Acetaminophen [Tylenol] 2 tab PO TID 04/29/18 Clopidogrel Bisulfate [Plavix] 75 mg PO BEDTIME 04/29/18 Cyanocobalamin [Vitamin B-12*] 1,000 mcg PO DAILY 04/29/18 Docusate Sodium 1 tab PO DAILY 04/29/18 Folic Acid 1 tab PO DAILY 04/29/18 Furosemide [Lasix*] 1 tab PO DAILY 04/29/18 Gabapentin 1 tab PO BID 04/29/18 Iron/FA/Vit B-Com W/C [Hemocyte Plus*] 1 tab PO DAILY 04/29/18 Levothyroxine [Synthroid*] 1 tab PO DAILY 04/29/18 Loratadine [Claritin*] 1 tab PO DAILY 04/29/18 Lovastatin 1 tab PO DAILY 04/29/18 Metformin HCl 1 tab PO DAILY 04/29/18 Pantoprazole Sodium [Protonix] 1 tab PO DAILY 04/29/18 Quetiapine Fumarate [Seroquel] 1 tab PO BEDTIME 04/29/18 Sitagliptin Phosphate [Januvia*] 1 tab PO DAILY 04/29/18 Tramadol HCl [Ultram] 1 tab PO Q8H PRN 04/29/18 raNITIdine HCl [Ranitidine HCl] 1 tab PO BEDTIME 04/29/18 - Past Medical/Surgical History Has patient received pneumonia vaccine in the past: Yes Diabetic: Yes -: arthritis -: back pain -: diabetes- NIDDM -: hypertension -: thyroid problems -: kidney problems -: heart sx -: cervix removal -: right hip replacement - Family History Father Medical History: Heart disease Mother Medical History: Diabetes, Kidney disease - Social History Smoking Status: Never smoker Alcohol use: No CD- Drugs: No Caffeine use: Yes Place of Residence: Shelter Review of Systems 10-point ROS is otherwise unremarkable Physical Examination - Vital Signs Temperature: 97.9 F Blood Pressure: 161/63 Pulse: 78 Respirations: 18 Pulse Ox (%): 97 - Physical Exam General: Alert, In no apparent distress, Oriented x1, Demented HEENT: Atraumatic, PERRLA, Mucous membr. moist/pink, EOMI, Sclerae nonicteric Neck: Supple, 2+ carotid pulse no bruit, No LAD, Without JVD or thyroid abnormality Respiratory: Clear to auscultation bilaterally, Normal air movement Cardiovascular: Regular rate/rhythm, Normal S1 S2, No murmurs Gastrointestinal: Normal bowel sounds, Soft and benign, Non-distended, No tenderness Musculoskeletal: No clubbing, No swelling, No tenderness Integumentary: No rashes Neurological: Normal speech, Normal tone, Sensation intact, Cranial nerves 3-12 intact, Normal affect, Abnormal gait, Abnormal strength Lymphatics: No axilla or inguinal lymphadenopathy Assessment & Plan - Problems (Diagnosis) (1) Status post fall Current Visit: Yes Status: Acute (2) Concussion Current Visit: Yes Status: Acute (3) Alzheimer's dementia without behavioral disturbance Current Visit: No Status: Acute Qualifiers: Alzheimer's disease onset: late-onset Qualified Code(s): G30.1 - Alzheimer' s disease with late onset; F02.80 - Dementia in other diseases classified elsewhere without behavioral disturbance (4) Dehydration Onset Date: 02/17/18 Current Visit: No Status: Acute (5) Essential hypertension Onset Date: 03/30/18 Current Visit: No Status: Acute (6) Hyperlipidemia, mixed Onset Date: 03/30/18 Current Visit: No Status: Acute (7) Hypothyroidism Onset Date: 03/30/18 Current Visit: No Status: Acute - Plan Plan: 1. Observation for 24 hr with neuro checks every 2 2. Pain control 3. Out of bed and ambulate with physical therapy 4. Monitor electrolytes 5. Rule out any infectious etiology 6. Discuss with family code status 7. GI and DVT prophylaxis - Advance Directives Does patient have a Living Will: No Does patient have a Durable POA for Healthcare: No - Code Status/Comfort Care Code Status Assessed: Yes Code Status: Full Code Critical Care: No Time Spent Managing PTS Care (In Minutes): 50
[2018-04-30 05:27] VITALS: O2SAT 95
--- NOTE | 2018-04-30 09:28 | P.DS ---
Admission Date: 04/28/18 Discharge Date: 04/30/18 Disposition: ROUTINE DISCHARGE Discharge Condition: GOOD Reason for Admission: AMS - Problems (1) Status post fall Current Visit: Yes Status: Acute (2) Alzheimer's dementia without behavioral disturbance Current Visit: No Status: Acute Qualifiers: Alzheimer's disease onset: late-onset Qualified Code(s): G30.1 - Alzheimer' s disease with late onset; F02.80 - Dementia in other diseases classified elsewhere without behavioral disturbance (3) CKD (chronic kidney disease), stage II Onset Date: 03/30/18 Current Visit: No Status: Acute Brief History of Present Illness: Patient presented after a fall in the care home. She was trying to get out of bed in the middle of the night. She had some head pain. She had negative xrays and CT in the Er. She is at her baseline. She is not a good historian due to the dementia Hospital Course: was put in observation. Tried to ambulate her with PT. She can stand and take a few steps. This has been her baseline. Will send her back to [place]. Will continue PT Vital Signs/Physical Exam: Temp Pulse Resp BP Pulse Ox 97.9 F 78 18 161/63 H 97 04/30/18 02:33 04/30/18 02:33 04/30/18 02:33 04/30/18 02:33 04/30/18 02:33 General: In no apparent distress, Demented HEENT: Atraumatic, PERRLA, EOMI Neck: Supple, JVD not distended Respiratory: Clear to auscultation bilaterally, Normal air movement Cardiovascular: Regular rate/rhythm, Normal S1 S2 Gastrointestinal: Normal bowel sounds, No tenderness Musculoskeletal: No tenderness Integumentary: No rashes Neurological: Normal speech, Normal tone, Normal affect Lymphatics: No axilla or inguinal lymphadenopathy Laboratory Data at Discharge: WBC 9.3 K/uL (4.3-10.9) 04/29/18 05:27 Hgb 10.3 g/dL (12.0-15.0) L 04/29/18 05:27 Hct 30.0 % (36.0-45.0) L 04/29/18 05:27 Plt Count 296 K/uL (152-406) 04/29/18 05:27 PT 12.8 SECONDS (9.5-12.5) H 04/28/18 20:50 INR 1.08 04/28/18 20:50 Sodium 142 mmol/L (136-145) 04/29/18 05:27 Potassium 3.6 mmol/L (3.5-5.1) 04/29/18 05:27 BUN 22 mg/dL (7-18) H 04/29/18 05:27 Creatinine 1.30 mg/dL (0.55-1.3) 04/29/18 05:27 Glucose 174 mg/dL (74-106) H 04/29/18 05:27 Magnesium 1.9 mg/dL (1.8-2.4) 04/28/18 20:50 Total Bilirubin 0.2 mg/dL (0.2-1.0) 04/29/18 05:27 AST 12 U/L (15-37) L 04/29/18 05:27 ALT 12 U/L (12-78) 04/29/18 05:27 Alkaline Phosphatase 138 U/L (45-117) H 04/29/18 05:27 Home Medications: Aspirin [Ecotrin 81 MG] 81 mg PO DAILY 02/17/18 Acetaminophen [Tylenol] 2 tab PO TID 04/29/18 Clopidogrel Bisulfate [Plavix] 75 mg PO BEDTIME 04/29/18 Iron/FA/Vit B-Com W/C [Hemocyte Plus*] 1 tab PO DAILY 04/29/18 Loratadine [Claritin*] 1 tab PO DAILY 04/29/18 Pantoprazole Sodium [Protonix] 1 tab PO DAILY 04/29/18 Quetiapine Fumarate [Seroquel] 1 tab PO BEDTIME 04/29/18 RX: Cyanocobalamin [Vitamin B-12*] 1,000 mcg PO DAILY 04/29/18 RX: Docusate Sodium 1 tab PO DAILY 04/29/18 RX: Folic Acid 1 tab PO DAILY 04/29/18 RX: Furosemide [Lasix*] 1 tab PO DAILY 04/29/18 RX: Gabapentin 1 tab PO BID 04/29/18 RX: Levothyroxine [Synthroid*] 1 tab PO DAILY 04/29/18 RX: Lovastatin 1 tab PO DAILY 04/29/18 RX: Metformin HCl 1 tab PO DAILY 04/29/18 RX: Sitagliptin Phosphate [Januvia*] 1 tab PO DAILY 04/29/18 RX: Tramadol HCl [Ultram] 1 tab PO Q8H PRN 04/29/18 raNITIdine HCl [Ranitidine HCl] 1 tab PO BEDTIME 04/29/18 Diet: Regular Activity: Fall precautions Followup: Alessandro Farrar MD [Primary Care Provider] - Time spent managing pt's care (in minutes): 35
[2018-04-30 13:48] VITALS: BP 166/82; TEMP 100.5
== END 2018-04-30 11:57 ==
LOC: ER 19:31 → ERHOLD 21:16 → 2ND 04-29 00:26
PROVIDERS: ADMIT Internal Medicine; ATTEND Hospitalist
DX: S06.0X9A Concussion with loss of consciousness of unspecified duration, initial encounter (principal); S00.03XA Contusion of scalp, initial encounter; E86.0 Dehydration; G30.9 Alzheimer's disease, unspecified; F02.80 Dementia in other diseases classified elsewhere, unspecified severity, without behavioral disturbance, psychotic disturbance, mood disturbance, and anxiety; I12.9 Hypertensive chronic kidney disease with stage 1 through stage 4 chronic kidney disease, or unspecified chronic kidney disease; E11.22 Type 2 diabetes mellitus with diabetic chronic kidney disease; N18.2 Chronic kidney disease, stage 2 (mild); W06.XXXA Fall from bed, initial encounter; Y92.193 Bedroom in other specified residential institution as the place of occurrence of the external cause; Z79.82 Long term (current) use of aspirin; E03.9 Hypothyroidism, unspecified; E78.2 Mixed hyperlipidemia; Z96.641 Presence of right artificial hip joint
CPT/HCPCS: 36415; 51702; 70450; 71045; 71250; 72125; 72170; 73090; 73502; 73562 ×2; 80048; 80053; 80076; 81003; 82962 ×5; 83735; 83880; 84484; 85025 ×2; 85610; 86850; 86900; 86901; 87088; 93005; 96360; 96361; 97163; 99285; G0378 ×2; J7030 ×2; 87086

== ENCOUNTER 2018-06-11 13:10 | Observation (INO) | payer OTHER ==
[2018-06-11 13:56] LABS: Absolute Lymphocytes (CBC) 1.2 K/uL (0.7-4.9); Absolute Monocytes 0.8 K/uL (0.1-1.3); Absolute Neutrophil 10.3 K/uL (1.8-8.0); Basophils % 0.6 % (0-1.3); Hematocrit 31.1 % (36.0-45.0); Lymphocytes % 9.8 % (15.3-44.8); MPV 9.8 fL (7.6-11.3); Monocytes % 6.2 % (3.3-12.3); RBC Red Blood Cell Count 3.51 M/uL (3.86-4.86)
[2018-06-11 14:18] LABS: Albumin 2.5 g/dL (3.4-5.0); Bilirubin Direct 0.1 mg/dL (0-0.2); Bilirubin Total 0.2 mg/dL (0.2-1.0); Magnesium 1.9 mg/dL (1.8-2.4); Potassium 4.2 mmol/L (3.5-5.1); Protime INR 1.14; Troponin (Emerg Dept Use Only) 0.02 ng/mL (0.0-0.045)
--- NOTE | 2018-06-11 14:50 | RAD REPORT ---
EXAM DESCRIPTION: RAD - Pelvis - 06/11/2018 2:40 pm CLINICAL HISTORY: left hip pain COMPARISON: None FINDINGS: AP pelvis and left hip-multiple projections are submitted. Right total hip arthroplasty is noted. Proximal femoral nail is present in the proximal left femur with evidence of prior subtrochan teric fracture. Lesser trochanteric fragment is mildly medially displaced in remains ununited. An acu te fracture is not seen. A concerning hardware abnormality is not detected.
--- NOTE | 2018-06-11 15:12 | RAD REPORT ---
EXAM DESCRIPTION: CT - Head Brain Wo Cont - 06/11/2018 3:04 pm CLINICAL HISTORY: Alteration of awareness/confusion COMPARISON: January 2018 TECHNIQUE: Computed axial tomography of the head was obtained. IV contrast was not requested. All CT scans are performed using dose optimization technique as appropriate and may include automated exposure control or mA/KV adjustment according to patient size. FINDINGS: An intracranial bleed is not seen . The ventricles are normal in caliber. Cerebral atrophy seen No extra-axial fluid collection is noted. Mild low-density areas within periventricular, deep and sub cortical white matter likely represent ischemic changes secondary to small vessel disease. Fluid within the sinuses/ mastoids is not seen. Chronic right mastoid sclerosis IMPRESSION: No acute intracranial abnormality is seen. If patient's symptoms persist MRI of the bra in would be recommended.
--- NOTE | 2018-06-11 15:20 | RAD REPORT ---
EXAM DESCRIPTION: CT - Abdomen Pelvis Wo Contrast - 06/11/2018 3:04 pm CLINICAL HISTORY: Abdominal pain COMPARISON: April 2018 x-ray left hip TECHNIQUE: Computed axial tomography of the abdomen and pelvis was obtained. IV and oral contrast we re not requested. All CT scans are performed using dose optimization technique as appropriate and may include automated exposure control or mA/KV adjustment according to patient size. FINDINGS: The evaluation of solid organs, vessels and bowel is limited secondary to the lack of con trast administration. The liver, spleen, pancreas, adrenals and kidneys appear grossly normal. Small renal cysts The appendix is normal. There is no evidence of diverticulitis. Small bilateral pleural effusions. Compression screw and intramedullary niall affix a subacute left femoral fracture. Mild displacement of fracture fragments unchanged. However, the greater trochanter has become avulsed Small hiatal hernia IMPRESSION: Compression screw and intramedullary niall affix a subacute left femoral fracture. Mild d isplacement of fracture fragments unchanged. The greater trochanter has become avulsed Small bilateral pleural effusions
--- NOTE | 2018-06-11 15:22 | RAD REPORT ---
EXAM DESCRIPTION: Thuy Single View06/11/2018 2:40 pm CLINICAL HISTORY: Abdominal pain COMPARISON: April 2018 FINDINGS: Small bilateral pleural effusions. The lungs appear clear of acute infiltrate. The heart is mildly enlarged. Postsurgical changes invol ve the chest IMPRESSION: Small pleural effusions
--- NOTE | 2018-06-11 15:38 | RAD REPORT ---
EXAM DESCRIPTION: RAD - Hip Left 2 View - 06/11/2018 2:40 pm CLINICAL HISTORY: Left hip pain COMPARISON: None FINDINGS: AP pelvis and left hip-multiple projections are submitted. Right total hip arthroplasty is noted. Proximal femoral nail is present in the proximal left femur wi th evidence of prior subtrochanteric fracture. Lesser trochanteric fragment is mildly medially displa von in remains ununited. An acute fracture is not seen. A concerning hardware abnormality is not dete cted.
[2018-06-11] MEDS ORDERED: MORPHINE 2 MG/ML SYR ONE (16:28)
[2018-06-11] MEDS ORDERED: HYDROCODONE/APAP 7.5/325 MG TAB ONE (17:52)
--- NOTE | 2018-06-11 18:15 | RAD REPORT ---
EXAM DESCRIPTION: RAD - Knee Left 3 View - 06/11/2018 6:09 pm CLINICAL HISTORY: Left knee pain FINDINGS: No fracture or dislocation is seen. Mild osteoarthritis Bones are osteoporotic. Small metallic structure is present within the posteromedial aspect of knee w hich may be related to prior surgery and should be correlated clinically
[2018-06-11] MEDS ORDERED: FENTANYL CITR 100 MCG/2 ML ONE (18:18)
--- NOTE | 2018-06-11 18:28 | ER ---
Nurse's Notes [facility] Name: Wen Aguirre Age: 82 yrs Sex: Female : 1935 Arrival Date: 06/11/2018 Time: 13:12 Bed 20 Private MD: Diagnosis: Altered mental status, unspecified;Weakness-General;Urinary tract infection, site not specified Presentation: 06/11 13:12 Presenting complaint: EMS states: Pt c/o left hip pain while transferring 3 days ago, hb now c/o lower abdominal pain and constipation. Transition of care: patient was not received from another setting of care. Onset of symptoms was June 09, 2018. Risk Assessment: Do you want to hurt yourself or someone else? Patient reports no desire to harm self or others. Care prior to arrival: None. 13:12 Method Of Arrival: EMS: [facility] hb 13:12 Acuity: ELSA 3 hb 13:24 Initial Sepsis Screen: Does the patient meet any 2 criteria? No. Patient's initial em sepsis screen is negative. Does the patient have a suspected source of infection? No. Patient's initial sepsis screen is negative. Historical: - Allergies: 13:15 No Known Allergies; hb - Home Meds: 13:15 aspirin 81 mg Oral TbEC 1 tab once daily [Active]; Claritin 10 mg Oral tab 1 tab once hb daily [Active]; clopidogrel 75 mg Oral tab 1 tab once daily [Active]; Colace 100 mg Oral cap 1 cap once daily [Active]; cyanocobalamin (vitamin B-12) 500 mcg Oral tab [Active]; Ecotrin 81 mg Oral 1 tab once daily [Active]; fexofenadine 60 mg Oral tab 1 tab 2 times per day [Active]; folic acid 1 mg Oral tab 1 tab once daily [Active]; furosemide 40 mg Oral tab 1 tab once daily [Active]; gabapentin 100 mg Oral cap 1 caps 3 times per day [Active]; glipizide 10 mg Oral tab 1 tab 2 times per day [Active]; Hemocyte-Plus 106 mg iron- 1 mg Oral cap 1 cap once daily [Active]; Januvia 100 mg Oral tab 1 tab once daily [Active]; levothyroxine 88 mcg tab 1 tab once daily [Active]; lovastatin 40 mg Oral tab 1 tab once daily [Active]; metformin 500 mg Oral Tb24 1 tab once daily [Active]; pantoprazole 40 mg Oral TbEC 1 tab once daily [Active]; quetiapine 100 mg Oral tab 1 tab [Active]; ranitidine HCl 300 mg Oral cap 1 cap once daily [Active]; Seroquel 100 mg Oral tab 1 tab QHS [Active]; tramadol 50 mg Oral tab 1 tab every 8 hours [Active]; - PMHx: 13:15 Anemia; Arthritis; Back pain; Dementia; Diabetes - NIDDM; GERD; Hypertension; hb Hypothyroidism; neuropathy; - Immunization history:: Adult Immunizations up to date. - Social history:: Smoking status: Patient/guardian denies using tobacco. - Ebola Screening: : No symptoms or risks identified at this time. Screenin:16 Abuse screen: Denies threats or abuse. Denies injuries from another. Nutritional hb screening: No deficits noted. Tuberculosis screening: No symptoms or risk factors identified. Fall Risk Total Shen Fall Scale indicates High Risk Score (45 or more points). Fall prevention measures have been instituted. Side Rails Up X 2 Frequent Obs/Assessments Occuring As available patient and family educated on Fall Prevention Program and Strategies. Assessment: 13:21 General: Appears in no apparent distress. comfortable, Behavior is calm, cooperative. em Pain: Complains of pain in right lower quadrant, left lower quadrant and left hip Pain currently is 6 out of 10 on a pain scale. Neuro: Level of Consciousness is awake, alert, obeys commands, Oriented to person, place, time, situation. Cardiovascular: Reports chest pain, Patient's skin is warm and dry. Respiratory: Airway is patent Respiratory effort is even, unlabored, Respiratory pattern is regular, symmetrical. GI: Abdomen is distended, Bowel sounds present X 4 quads. Abd is soft X 4 quads Abdomen is tender to palpation in right lower quadrant and left lower quadrant Patient currently denies nausea, vomiting. Derm: Skin is intact, is fragile, Skin is pink, warm \T\ dry. Musculoskeletal: Range of motion: limited in left hip. 13:30 Reassessment: I agree with previous assessment. hb 14:19 Reassessment: Patient appears in no apparent distress at this time. Patient and/or em family updated on plan of care and expected duration. Pain level reassessed. Patient is alert, oriented x 3, equal unlabored respirations, skin warm/dry/pink. unable to catheterize pt, pt c/o pain and is unable to cooperate, provider notified. 15:18 Reassessment: Patient appears in no apparent distress at this time. Patient and/or em family updated on plan of care and expected duration. Pain level reassessed. Patient is alert, oriented x 3, equal unlabored respirations, skin warm/dry/pink. 16:02 Reassessment: Patient appears in no apparent distress at this time. Patient and/or em family updated on plan of care and expected duration. Pain level reassessed. Patient is alert, oriented x 3, equal unlabored respirations, skin warm/dry/pink. family at bedside, pending results. 17:36 Reassessment: Patient appears in no apparent distress at this time. Patient and/or em family updated on plan of care and expected duration. Pain level reassessed. Patient is alert, oriented x 3, equal unlabored respirations, skin warm/dry/pink. bladder scan shows 390 mL of urine in bladder, after Lisa placed, no urine return, provider notified, pending UA. 17:55 Reassessment: pt unable to take PO medications, provider notified, new IV medication em orders received. 18:14 Reassessment: Patient appears in no apparent distress at this time. Patient and/or em family updated on plan of care and expected duration. Pain level reassessed. old Lisa D/C'd, new Lisa put in place, pt will be admitted to hospital, family at bedside, pt appears to be more comfortable, Lisa inserted, returned 300 mL cloudy urine, pt tolerated well. 19:15 Reassessment: Patient appears in no apparent distress at this time. Patient and/or ca1 family updated on plan of care and expected duration. Pain level reassessed. Patient is alert, oriented x 3, equal unlabored respirations, skin warm/dry/pink. Awaiting room assignment. Patient denies abdominal and hip pain at the moment. . 19:58 Reassessment: Awaiting for call from 2nd floor for a weight bed for patient. Family at ca1 bedside informed of patient status. . 20:50 Reassessment: Patient appears in no apparent distress at this time. Patient is alert, ca1 oriented x 3, equal unlabored respirations, skin warm/dry/pink. Vital Signs: 13:20 BP 179 / 74; Pulse 76; Resp 18; Temp 99.5(O); Pulse Ox 97% on R/A; Pain 6/10; em 14:28 BP 174 / 69; Pulse 79; Resp 18; Pulse Ox 99% on R/A; Pain 0/10; em 16:03 BP 167 / 74; Pulse 76; Resp 18; Pulse Ox 99% on R/A; Pain 0/10; em 17:00 BP 162 / 93; Pulse 77; Resp 16; Pulse Ox 99% on R/A; em 18:35 BP 159 / 66; Pulse 79; Resp 18; Temp 99.0(O); Pulse Ox 97% on R/A; em 19:30 BP 148 / 54; Pulse 81; Resp 18; Pulse Ox 100% on R/A; Pain 0/10; ca1 20:32 BP 131 / 85; Pulse 82; Resp 18; Pulse Ox 100% on R/A; Pain 0/10; ca1 ED Course: 13:12 Patient arrived in ED. hb 13:13 Triage completed. hb 13:15 Arm band placed on. hb 13:16 Broderick Rodrigez PA is PHCP. cp 13:16 Sachin Morrow MD is Attending Physician. cp 13:20 Haile Ivan LVN is Primary Nurse. em 13:38 EKG done, by photovoltaic testing technician. reviewed by Broderick JIMENEZ. at1 13:40 Patient has correct armband on for positive identification. Placed in gown. Bed in low em position. Call light in reach. Side rails up X2. Adult w/ patient. awake overnight monitor on. Pulse ox on. NIBP on. 13:40 Initial lab(s) drawn, by nj, sent to lab. Inserted saline lock: 20 gauge in right em antecubital area, using aseptic technique. Blood collected. 14:40 XRAY Chest (1 view) In Process Unspecified. EDMS 14:40 XRAY Pelvis In Process Unspecified. EDMS 14:40 XRAY Hip LEFT 2 view In Process Unspecified. EDMS 15:04 CT Head Brain wo Cont In Process Unspecified. EDMS 15:04 Abdomen In Process Unspecified. EDMS 17:22 Straight cath inserted, using sterile technique, 16 Fr. Returned zero urine. Patient hb tolerated TONY garcia notified. 18:09 XRAY Knee LEFT 3 view In Process Unspecified. EDMS 18:27 Alessandro Farrar MD is Hospitalizing Provider. cp 18:32 Lisa cath inserted, using sterile technique, 18 Fr., balloon inflated, to gravity hb drainage, urine specimen collected. returned cloudy urine. Patient tolerated Fair. 19:57 Report given to Laya Rodriguez RN on 2nd floor. ca1 20:25 Primary Nurse role handed off by Haile Ivan LVN ed1 20:35 Soila Mcnair RN is Primary Nurse. ca1 20:48 No provider procedures requiring assistance completed. Patient admitted, IV remains in ca1 place. Administered Medications: 16:30 Drug: morphine 2 mg Route: IVP; Site: left antecubital; hb 17:36 Follow up: Response: No adverse reaction em 18:22 Not Given (pt was in too much pain, would not take medication by mouth): em Hydrocodone-Acetaminophen (7.5 mg-325 mg) 1 tabs PO once 18:25 Drug: fentaNYL (PF) 25 mcg Route: IVP; Site: left antecubital; hb 18:45 Follow up: Response: No adverse reaction; Pain is decreased em 18:28 Drug: Rocephin - (cefTRIAXone) 1 grams Route: IVPB; Infused Over: 30 mins; Site: left hb antecubital; 19:04 Follow up: Response: No adverse reaction; IV Status: Completed infusion; IV Intake: 10mlem 19:00 Drug: NS 0.9% 500 ml Route: IV; Rate: 50 ml/hr; Site: left antecubital; em 20:47 Follow up: Urine output 350 ml; Response: No adverse reaction; IV Status: Infusion ca1 continued upon admission Point of Care Testing: Blood Glucose: 18:46 Blood Glucose: 187 mg/dL; em Ranges: Intake: 19:04 IV: 10ml; Total: 10ml. em Output: 20:47 Urine: 350ml; Total: 350ml. ca1 20:50 Urine: 350ml (Lisa); Total: 700ml. ca1 Outcome: 18:28 Decision to Hospitalize by Provider. cp 20:48 Admitted to Med/surg accompanied by tech, family with patient, via stretcher, room 221, ca1 with chart, Report called to Laya Rodriguez RN 20:48 Condition: stable 20:48 Instructed on the need for admit, Demonstrated understanding of instructions. 20:52 Patient left the ED. ca1 Signatures: Dispatcher [employer] EDMS Haile Ivan, INFORMATION TECHNOLOGY MANAGER INFORMATION TECHNOLOGY MANAGER em Sarkar, Lisa, INFORMATION TECHNOLOGY MANAGER INFORMATION TECHNOLOGY MANAGER ed1 Ivone Adames, hr clerk EKG Tat1 Broderick Rodrigez PA PA cp Baxter, Heather, REYNA RN Soila Mcnair RN RN ca1 Corrections: (The following items were deleted from the chart) 15:18 14:19 Reassessment: Patient appears in no apparent distress at this time. Patient em and/or family updated on plan of care and expected duration. Pain level reassessed. Patient is alert, oriented x 3, equal unlabored respirations, skin warm/dry/pink. unable to catheterize pt, pt c/o pain and is unable to cooperate em 20:40 17:30 BP 148 / 54; Pulse 81bpm; Resp 18bpm; Pulse Ox 100% RA; Pain 0/10; ca1 ca1 20:40 17:30 BP 131 / 85; Pulse 82bpm; Resp 18bpm; Pulse Ox 100% RA; Pain 0/10; ca1 ca1
--- NOTE | 2018-06-11 18:28 | EDPHYS ---
Physician Documentation [facility] Name: Wen Aguirre Age: 82 yrs Sex: Female : 1935 Arrival Date: 06/11/2018 Time: 13:12 Bed 20 Private MD: ED Physician Sachin Morrow HPI: 06/11 13:25 This 82 yrs old Female presents to ER via EMS with complaints of Abdominal cp Pain. 13:25 The patient presents with abdominal pain in the left lower quadrant. cp 13:25 Onset: The symptoms/episode began/occurred today. cp 13:25 Associated signs and symptoms: Pertinent positives: constipation, left hip pain, cp Pertinent negatives: diarrhea, fever, headache, vomiting, trauma. Modifying factors: the symptoms are aggravated by movement, pressure. Severity of pain: in the emergency department the pain is unchanged despite home interventions. Historical: - Allergies: 13:15 No Known Allergies; hb - Home Meds: 13:15 aspirin 81 mg Oral TbEC 1 tab once daily [Active]; Claritin 10 mg Oral tab 1 tab once hb daily [Active]; clopidogrel 75 mg Oral tab 1 tab once daily [Active]; Colace 100 mg Oral cap 1 cap once daily [Active]; cyanocobalamin (vitamin B-12) 500 mcg Oral tab [Active]; Ecotrin 81 mg Oral 1 tab once daily [Active]; fexofenadine 60 mg Oral tab 1 tab 2 times per day [Active]; folic acid 1 mg Oral tab 1 tab once daily [Active]; furosemide 40 mg Oral tab 1 tab once daily [Active]; gabapentin 100 mg Oral cap 1 caps 3 times per day [Active]; glipizide 10 mg Oral tab 1 tab 2 times per day [Active]; Hemocyte-Plus 106 mg iron- 1 mg Oral cap 1 cap once daily [Active]; Januvia 100 mg Oral tab 1 tab once daily [Active]; levothyroxine 88 mcg tab 1 tab once daily [Active]; lovastatin 40 mg Oral tab 1 tab once daily [Active]; metformin 500 mg Oral Tb24 1 tab once daily [Active]; pantoprazole 40 mg Oral TbEC 1 tab once daily [Active]; quetiapine 100 mg Oral tab 1 tab [Active]; ranitidine HCl 300 mg Oral cap 1 cap once daily [Active]; Seroquel 100 mg Oral tab 1 tab QHS [Active]; tramadol 50 mg Oral tab 1 tab every 8 hours [Active]; - PMHx: 13:15 Anemia; Arthritis; Back pain; Dementia; Diabetes - NIDDM; GERD; Hypertension; hb Hypothyroidism; neuropathy; - Immunization history:: Adult Immunizations up to date. - Social history:: Smoking status: Patient/guardian denies using tobacco. - Ebola Screening: : No symptoms or risks identified at this time. ROS: 13:30 Constitutional: Negative for body aches, chills, fever, poor PO intake. cp 13:30 Eyes: Negative for injury, pain, redness, and discharge. cp Exam: 13:35 Constitutional: The patient appears in no acute distress, alert, awake, cp non-diaphoretic, non-toxic, well developed, well nourished. 13:35 Head/Face: Normocephalic, atraumatic. cp 13:35 Eyes: Periorbital structures: appear normal, Pupils: equal, round, and reactive to light and accomodation, Extraocular movements: intact throughout, Conjunctiva: normal, no exudate, no injection, Sclera: no appreciated abnormality, Lids and lashes: appear normal, bilaterally. 13:35 ENT: External ear(s): are unremarkable, Ear canal(s): are normal, clear, TM's: bulging, is not appreciated, bilaterally, dullness, bilaterally, erythema, is not appreciated, bilaterally, Nose: is normal, Mouth: Lips: moist, Oral mucosa: pink and intact, moist, Posterior pharynx: Airway: no evidence of obstruction, patent, swelling, is not appreciated, erythema, is not appreciated. 13:35 Neck: ROM/movement: is normal, is supple, without pain, no range of motions limitations, no meningismus, no nuchal rigidity. 13:35 Chest/axilla: Inspection: normal, Palpation: is normal, no crepitus, no tenderness. 13:35 Cardiovascular: Rate: normal, Rhythm: regular, Edema: is not appreciated, JVD: is not appreciated. 13:35 Respiratory: the patient does not display signs of respiratory distress, Respirations: normal, no use of accessory muscles, no retractions, no splinting, no tachypnea, labored breathing, is not present, Breath sounds: are clear throughout, no decreased breath sounds, no stridor, no wheezing. 13:35 Abdomen/GI: Inspection: abdomen appears normal, Bowel sounds: active, all quadrants, Palpation: soft, in all quadrants, mild abdominal tenderness, in the left lower quadrant, rebound tenderness, is not appreciated, involuntary guarding, is not appreciated. 13:35 Musculoskeletal/extremity: Extremities: grossly normal except: noted in the left hip: pain, tenderness, ROM: limited passive range of motion due to pain, in the left hip. 13:35 Skin: cellulitis, is not appreciated, no rash present. 13:35 Neuro: Orientation: to person, place, Motor: moves all fours, negative for focal deficits. 13:38 ECG was reviewed by the Attending Physician. cp Vital Signs: 13:20 BP 179 / 74; Pulse 76; Resp 18; Temp 99.5(O); Pulse Ox 97% on R/A; Pain 6/10; em 14:28 BP 174 / 69; Pulse 79; Resp 18; Pulse Ox 99% on R/A; Pain 0/10; em 16:03 BP 167 / 74; Pulse 76; Resp 18; Pulse Ox 99% on R/A; Pain 0/10; em 17:00 BP 162 / 93; Pulse 77; Resp 16; Pulse Ox 99% on R/A; em 18:35 BP 159 / 66; Pulse 79; Resp 18; Temp 99.0(O); Pulse Ox 97% on R/A; em 19:30 BP 148 / 54; Pulse 81; Resp 18; Pulse Ox 100% on R/A; Pain 0/10; ca1 20:32 BP 131 / 85; Pulse 82; Resp 18; Pulse Ox 100% on R/A; Pain 0/10; ca1 MDM: 13:22 Patient medically screened. cp 16:20 Physician consultation: Jann Kwok MD was called at 16:20, left message on voicemail. cp 16:27 Physician consultation: Jann Kwok MD was contacted at 16:27, regarding patient's cp condition, would like further tests performed, xray of left knee. If negative for fracture, discontinue physical therapy and patient can f/u in clinic. 18:20 Data reviewed: vital signs, nurses notes, lab test result(s), EKG, radiologic studies, cp CT scan, plain films, and as a result, I will admit patient. 18:20 Test interpretation: by ED physician or midlevel provider: ECG, plain radiologic cp studies. 18:35 Physician consultation: Alessandro Farrar MD was called at 18:25, was contacted at 18:25, regarding admission, to the telemetry unit. patient's condition. 06/11 13:17 Order name: Basic Metabolic Panel; Complete Time: 15:32 cp / 15:34 Interpretation: Normal except: GLUC 248; CRE 1.40; GFR 36; CA 8.2. 06/11 13:17 Order name: CBC with Diff; Complete Time: 14:16 cp 06/11 14:16 Interpretation: Normal except: WBC 12.7; RBC 3.51; HGB 10.3; HCT 31.1; RDW 16.4; HARPREET% cp 81.4; LYM% 9.8; NEUT A 10.3. 06/11 13:17 Order name: LFT's; Complete Time: 15:32 cp 06/11 15:34 Interpretation: Normal except: AST 8; ALT 11; ALB 2.5; GLOB 4.5; A/G 0.6. 06/11 13:17 Order name: Magnesium; Complete Time: 15:32 cp 06/11 13:17 Order name: NT PRO-BNP; Complete Time: 15:32 cp 06/11 15:32 Interpretation: Abnormal: NT PRO-BNP 7776. 06/11 13:17 Order name: PT-INR; Complete Time: 15:32 06/11 13:17 Order name: Troponin (emerg Dept Use Only); Complete Time: 15:32 06/11 13:17 Order name: Procalcitonin; Complete Time: 15:32 06/11 13:17 Order name: Lactate; Complete Time: 14:16 06/11 14:18 Interpretation: Reviewed. 06/11 13:17 Order name: Blood Culture Adult (2) 06/11 13:18 Order name: Urine Microscopic Only; Complete Time: 21:43 cp 06/11 21:43 Interpretation: Normal except: UWBC >50; UBACT LOADED; SQEPI 5-10; AMORPH 2+. 06/11 18:21 Order name: Urine Dipstick--Ancillary (enter results); Complete Time: 21:43 hb 06/11 21:44 Interpretation: Normal except: UBLD 2+; UPROT 3+; U NIT POSITIVE; UESTR TRACE. cp 06/11 18:22 Order name: Urine Culture cp 06/11 18:39 Order name: Basic Metabolic Panel EDMS 06/11 13:17 Order name: XRAY Chest (1 view); Complete Time: 15:32 cp 06/11 13:17 Order name: EKG; Complete Time: 13:19 cp 06/11 13:50 Order name: XRAY Pelvis; Complete Time: 15:32 cp 06/11 13:50 Order name: XRAY Hip LEFT 2 view cp 06/11 13:50 Order name: CT Head Brain wo Cont; Complete Time: 15:32 cp 06/11 14:50 Order name: Abdomen ; Complete Time: 15:32 EDMS 06/11 16:25 Order name: XRAY Knee LEFT 3 view; Complete Time: 18:18 cp 06/11 18:39 Order name: Basic Metabolic Panel EDMS 06/11 18:39 Order name: CBC with Automated Diff EDMS 06/11 18:39 Order name: CBC with Automated Diff EDMS 06/11 13:17 Order name: Cardiac monitoring; Complete Time: 14:18 cp 06/11 13:17 Order name: EKG - Nurse/Tech; Complete Time: 14:18 cp 06/11 13:17 Order name: IV Saline Lock; Complete Time: 14:18 cp 06/11 13:17 Order name: Labs collected and sent; Complete Time: 14:18 cp 06/11 13:17 Order name: O2 Per Protocol; Complete Time: 14:18 cp 06/11 13:17 Order name: O2 Sat Monitoring; Complete Time: 14:18 cp 06/11 13:18 Order name: Cath; Complete Time: 18:21 cp 06/11 13:18 Order name: Urine Dipstick-Ancillary (obtain specimen); Complete Time: 18:21 cp 06/11 18:38 Order name: Heart Healthy EDMS 06/11 18:39 Order name: Accucheck Blood Glucose; Complete Time: 18:45 cp EC:38 Rate is 81 beats/min. Rhythm is regular. PA interval is normal. QRS interval is cp prolonged at 112 msec. QT interval is normal. T waves are Inverted in lead aVF. Interpreted by me. Reviewed by me. Administered Medications: 16:30 Drug: morphine 2 mg Route: IVP; Site: left antecubital; hb 17:36 Follow up: Response: No adverse reaction em 18:22 Not Given (pt was in too much pain, would not take medication by mouth): em Hydrocodone-Acetaminophen (7.5 mg-325 mg) 1 tabs PO once 18:25 Drug: fentaNYL (PF) 25 mcg Route: IVP; Site: left antecubital; hb 18:45 Follow up: Response: No adverse reaction; Pain is decreased em 18:28 Drug: Rocephin - (cefTRIAXone) 1 grams Route: IVPB; Infused Over: 30 mins; Site: left hb antecubital; 19:04 Follow up: Response: No adverse reaction; IV Status: Completed infusion; IV Intake: 10mlem 19:00 Drug: NS 0.9% 500 ml Route: IV; Rate: 50 ml/hr; Site: left antecubital; em 20:47 Follow up: Urine output 350 ml; Response: No adverse reaction; IV Status: Infusion ca1 continued upon admission Point of Care Testing: Blood Glucose: 18:46 Blood Glucose: 187 mg/dL; em Ranges: Critical Glucose Levels:Adult <50 mg/dl or >400 mg/dl <40 mg/dl or >180 mg/dl Disposition: 06/11/18 18:28 Hospitalization ordered by Alessandro Farrar for Inpatient Admission. Preliminary diagnosis are Altered mental status, unspecified, Weakness - General, Urinary tract infection, site not specified. - Bed requested for Telemetry/MedSurg (Inpatient). - Status is Inpatient Admission. ca1 - Condition is Stable. - Problem is new. - Symptoms have improved. UTI on Admission? Yes Addendum: 06/22/2018 07:36 Co-signature as Attending Physician, Sachin Morrow MD I agree with the assessment and k dr plan of care. Signatures: Dispatcher [employer] EDSachin Rosas MD MD [facility] Haile Ivan, APPLIED MARINE PHYSICS PROFESSOR APPLIED MARINE PHYSICS PROFESSOR Heath Horn em1 Broderick Rodrigez PA PA cp Baxter, Heather, RN RN hb AcobSoila RN RN ca1 Corrections: (The following items were deleted from the chart) 06/11 14:49 13:51 Abdomen Pelvis W Con+CT.RAD.BRZ ordered. EDMS EDMS 15:34 15:32 Normal except: GLUC 248; CRE 1.40; GFR 36. cp cp 19:21 18:28 Hospitalization Ordered by Alessandro Farrar MD for Inpatient Admission. Preliminary em1 diagnosis is Altered mental status, unspecified; Weakness - General; Urinary tract infection, site not specified. Bed requested for Telemetry/MedSurg (Inpatient). Status is Inpatient Admission. Condition is Stable. Problem is new. Symptoms have improved. UTI on Admission? Yes. cp 20:52 19:21 06/11/2018 18:28 Hospitalization Ordered by Alessandro Farrar MD for Inpatient ca1 Admission. Preliminary diagnosis is Altered mental status, unspecified; Weakness - General; Urinary tract infection, site not specified. Bed requested for Telemetry/MedSurg (Inpatient). Status is Inpatient Admission. Condition is Stable. Problem is new. Symptoms have improved. UTI on Admission? Yes. em1
[2018-06-11] MEDS ORDERED: HYDROCODONE/APAP 5/325 MG TAB PO PRN (18:32)
[2018-06-11] MEDS ORDERED: ACETAMINOPHEN 500 MG TAB PO PRN (18:32)
[2018-06-11] MEDS ORDERED: ONDANSETRON 4 MG/2 ML VIAL IV PRN (18:32)
[2018-06-11] MEDS ORDERED: D50W 25 GM/50 ML SYRINGE IV PRN (18:37)
[2018-06-11] MEDS ORDERED: GLUCAGON 1 MG/VIAL IM PRN (18:37)
[2018-06-11] MEDS ORDERED: CEFTRIAXONE/SWI 1gm 1 GM/10 ML SYR ONE (18:38)
[2018-06-11] MEDS ORDERED: NA CHLORIDE 0.9% 500 ML ONE (18:57)
[2018-06-11 18:58] LABS: Urine RBC <5 /HPF (NONE SEEN)
[2018-06-11 18:59] LABS: Urine Amorphous Sediment 2+ /HPF (NONE SEEN); Urine Bacteria LOADED /HPF (<20); Urine Culture Reflex Order NOT NEEDED
[2018-06-11] MEDS ORDERED: NA CHLORIDE 0.9% 1,000 ML IV SCH (19:00)
[2018-06-11 20:18] LABS: Urine Blood 2+ (NEG); Urine Glucose NEGATIVE (NEG); Urine Protein 3+ (NEG); Urine Specific Gravity 1.025 (1.005-1.030); Urine pH 5.5 (5.0-7.0)
[2018-06-11] MEDS: INSULIN -REGULAR HUMAN 50 UNIT/0.5 ML ML SQ SCH (21:00)
[2018-06-11 23:36] VITALS: BMI 30.9
[2018-06-12 05:31] LABS: Absolute Lymphocytes (CBC) 2.1 K/uL (0.7-4.9); Absolute Monocytes 0.7 K/uL (0.1-1.3); Absolute Neutrophil 7.4 K/uL (1.8-8.0); Basophils % 0.7 % (0-1.3); Eosinophils % 6.1 % (0-4.4); Hematocrit 28.1 % (36.0-45.0); Lymphocytes % 19.6 % (15.3-44.8); MPV 10.3 fL (7.6-11.3); Monocytes % 6.5 % (3.3-12.3); RBC Red Blood Cell Count 3.16 M/uL (3.86-4.86)
[2018-06-12 05:43] LABS: Potassium 4.1 mmol/L (3.5-5.1)
--- NOTE | 2018-06-12 07:01 | EKG ---
Test Date: 2018-06-11 Test Time: 13:31:15 Gasket Notcher: WESTLEY MEASUREMENT RESULTS: Intervals: Rate: 81 NE: 170 QRSD: 112 QT: 374 QTc: 434 [place]: P: 10 NE: 170 QRS: 19 T: -15 INTERPRETIVE STATEMENTS: Normal sinus rhythm Right bundle branch block Possible Inferior infarct, age undetermined Abnormal ECG Compared to ECG 04/28/2018 20:51:09 Ventricular premature complex(es) no longer present Myocardial infarct finding still present Electronically Signed On 06-12-18 06:52:47 MACHINING ENGINEER by Toby Ames
[2018-06-12] MEDS ORDERED: PNEUMOCOCCAL VACCINE 0.5 ML IMVAC ONE (08:00)
[2018-06-12 08:28] VITALS: O2SAT 95
[2018-06-12 08:48] VITALS: BP 170/72; TEMP 97.1
[2018-06-12] MEDS ORDERED: CEFTRIAXONE 1 GM/NS 50 ML 1 GM/50 ML BAG IV SCH (09:00)
[2018-06-12] MEDS ORDERED: CEFTRIAXONE/SWI 1gm 1 GM/10 ML SYR IV SCH (09:00)
[2018-06-12] MEDS: INSULIN -REGULAR HUMAN 50 UNIT/0.5 ML ML SQ SCH ×2 (09:12→13:01)
--- NOTE | 2018-06-12 12:54 | P.SSS ---
Patient History Date of Service: 06/12/18 Primary Care Provider: Charan Reason for admission: UTI, delirium History of Present Illness: Patient was brought to the ER by her daughter. She was getting more combative and staying in bed. Patient has advance dementia. Was found to have a UTI. She is doing much better this morning. Sitting in the bed having breakfast. She denies any complaints. The daughter was trying to take her home to family for continued care. They have plane tickets for [place] tomorrow. The family would like to take her curtis. Allergies No Known Allergies Allergy (Verified 04/29/18 02:29) Home Medications: Clopidogrel Bisulfate [Plavix] 75 mg PO BEDTIME 04/29/18 Cyanocobalamin [Vitamin B-12*] 1,000 mcg PO DAILY 04/29/18 Docusate Sodium 1 tab PO DAILY 04/29/18 Folic Acid 1 tab PO DAILY 04/29/18 Furosemide [Lasix*] 1 tab PO DAILY 04/29/18 Gabapentin 1 tab PO TID 04/29/18 Iron/FA/Vit B-Com W/C [Hemocyte Plus*] 1 tab PO DAILY 04/29/18 Levothyroxine [Synthroid*] 1 tab PO DAILY 04/29/18 Lovastatin 1 tab PO DAILY 04/29/18 Quetiapine Fumarate [Seroquel] 1 tab PO BEDTIME 04/29/18 Sitagliptin Phosphate [Januvia*] 1 tab PO DAILY 04/29/18 raNITIdine HCl [Ranitidine HCl] 300 mg PO BEDTIME 04/29/18 Aspirin [Ecotrin 81 MG] 81 mg PO DAILY 06/11/18 Donepezil HCl 10 mg PO BEDTIME 06/11/18 Fexofenadine HCl 60 mg PO DAILY 06/11/18 Glipizide [Glucotrol] 10 mg PO BID 06/11/18 levoFLOXacin [Levaquin] 500 mg PO DAILY #7 tab 06/12/18 - Past Medical/Surgical History Diabetic: Yes -: arthritis -: back pain -: diabetes- NIDDM -: hypertension -: thyroid problems -: kidney problems -: heart sx -: cervix removal -: right hip replacement - Family History Father -: Heart disease Mother -: Diabetes, Kidney disease - Social History Smoking Status: Never smoker Alcohol use: No CD- Drugs: No Caffeine use: No Place of Residence: Home Review of Systems 10-point ROS is otherwise unremarkable Physical Examination - Vital Signs Temperature: 97.1 F Blood Pressure: 170/72 Pulse: 80 Respirations: 18 Pulse Ox (%): 94 - Physical Exam General: Alert, In no apparent distress HEENT: Atraumatic, PERRLA, Mucous membr. moist/pink, EOMI, Sclerae nonicteric Neck: Supple, 2+ carotid pulse no bruit, No LAD, Without JVD or thyroid abnormality Respiratory: Clear to auscultation bilaterally, Normal air movement Cardiovascular: Regular rate/rhythm, Normal S1 S2 Gastrointestinal: Normal bowel sounds, No tenderness Musculoskeletal: No tenderness Integumentary: No rashes Neurological: Normal gait, Normal speech, Normal strength at 5/5 x4 extr, Normal tone, Normal affect Lymphatics: No axilla or inguinal lymphadenopathy - Studies Laboratory Data (last 24 hrs) 06/11/18 13:40: PT 13.5 H, INR 1.14 06/11/18 13:40: WBC 12.7 H, Hgb 10.3 L, Hct 31.1 L, Plt Count 325 06/11/18 13:40: Sodium 138, Potassium 4.2, BUN 18, Creatinine 1.40 H, Glucose 248 H, Magnesium 1.9, Total Bilirubin 0.2, AST 8 L, ALT 11 L, Alkaline Phosphatase 100 - Diagnosis (Problem(s)) (1) UTI (urinary tract infection) Current Visit: Yes Status: Acute Plan: Improving. will discharge her on levaquin Qualifiers: Urinary tract infection type: acute cystitis (2) Altered mental status Current Visit: Yes Status: Resolved Plan: Patient is at baseline will d/c home Qualifiers: Altered mental status type: delirium Qualified Code(s): R41.0 - Disorientation, unspecified (3) CKD (chronic kidney disease), stage II Onset Date: 03/30/18 Current Visit: No Status: Acute Treatment Summary: Patient is doing well. Kidney function has recoverded. She is at her baseline mental status. - Disposition Disposition: ROUTINE DISCHARGE Diet: Regular Activity: Fall precautions Physician Review: Patient Assessed, Agree with Above Assessment and Plan Critical Care: No Time Spent Managing Pts Care (In Minutes): 45
--- OUTSIDE RECORDS SUMMARY | 2018-06-12 17:18 | XMS REPORT ---
[...] Status Dosage System Date Date Vitamin B-12 [facility] 70259746202 1000 MCG Orally Active 1 tablet Once a day Donepezil HCl [facility] 67290555813 10 MG Orally Active 1 tablet Once a day at bedtime Clopidogrel [facility] 46460127319 75 MG Orally Active 1 tablet Bisulfate Once a day Quetiapine [facility] 00300599238 100 MG Orally Active 1 tablet Fumarate Once a day Ranitidine HCl [facility] 79147663143 300 MG Orally Active 1 tablet Once a day Levothyroxine ND 37564989317 88 MCG Orally Active 1 tablet Sodium Once a day on an empty stomach in the morning Gabapentin [facility] 07222380343 100 MG Orally Active 1 capsule Three times a day Furosemide [facility] 50745092233 40 MG Orally Active 1 tablet Once a day Stool Softener [facility] 90980086711 100 MG Orally Active 1 capsule Once a day as needed Ecotrin [facility] 16821897669 325 MG Orally Jul 05, Active 1 tablet Once a day 2018uvia [facility] 82257700200 100 MG Orally Active 1 tablet Once a day Folic Acid [facility] 26629586085 1 MG Orally Active 1 tablet Once a day Fexofenadine HCl [facility] 70943414469 60 MG Orally Jul 05, Active 1 tablet Once a day 2018 as needed Results No Known Results Summary Purpose eClinicalWorks Submission
--- OUTSIDE RECORDS SUMMARY | 2018-06-12 17:18 | XMS REPORT ---
[...] Status Dosage System Date Date Clopidogrel ND 34912360143 75 MG Orally Active 1 tablet Bisulfate Once a day Vitamin B-12 ND 70151336607 1000 MCG Orally Active 1 tablet Once a day Donepezil HCl [facility] 09183587230 10 MG Orally Active 1 tablet Once a day at bedtime Ecotrin ND 65580802330 325 MG Orally Jul 05, Active 1 tablet Once a day 2019 Januvia ND 21345792023 100 MG Orally Active 1 tablet Once a day Fexofenadine HCl [facility] 43959667654 60 MG Orally Jul 05, Active 1 tablet Once a day 2018 as needed Stool Softener [facility] 89900417170 100 MG Orally Active 1 capsule Once a day as needed Gabapentin [facility] 41803573065 100 MG Orally Active 1 capsule Three times a day Quetiapine [facility] 95592010371 100 MG Orally Active 1 tablet Fumarate Once a day Levothyroxine [facility] 44744677566 88 MCG Orally Active 1 tablet Sodium Once a day on an empty stomach in the morning Ranitidine HCl [facility] 19851801734 300 MG Orally Active 1 tablet Once a day Furosemide [facility] 45690497275 40 MG Orally Sept Active 1 tablet Once a day 2017 Folic Acid [facility] 17955201167 1 MG Orally Active 1 tablet Once a day Results No Known Results Summary Purpose eClinicalWorks Submission
--- OUTSIDE RECORDS SUMMARY | 2018-06-12 17:18 | XMS REPORT ---
[...] End Status Dosage System Date Date Ecotrin [facility] 00707802465 325 MG Orally Jul 05, Active 1 tablet Once a day 2019 Fexofenadine HCl [facility] 36400526961 60 MG Orally Jul 05, Active 1 tablet Once a day 2019 as needed Vitamin B-12 [facility] 14602623886 1000 MCG Orally Active 1 tablet Once a day Januvia [facility] 11538095100 100 MG Orally Active 1 tablet Once a day Folic Acid [facility] 13750313671 1 MG Orally Active 1 tablet Once a day Clopidogrel [facility] 77060260843 75 MG Orally Active 1 tablet Bisulfate Once a day Quetiapine [facility] 74287849008 100 MG Orally Active 1 tablet Fumarate Once a day Ferrous Sulfate [facility] 18551411090 325 (65 Fe) MG Inactive 1 tablet Orally Once a day Levothyroxine [facility] 28527417069 88 MCG Orally Active 1 tablet Sodium Once a day on an empty stomach in the morning Gabapentin [facility] 56790286352 100 MG Orally Active 1 capsule Three times a day GlipiZIDE [facility] 20682160473 10 MG Orally Inactive 1 tablet Twice a day Donepezil HCl [facility] 53082544842 10 MG Orally Active 1 tablet Once a day at bedtime Ranitidine HCl [facility] 20842210566 300 MG Orally Active 1 tablet Once a day Stool Softener [facility] 56366883588 100 MG Orally Active 1 capsule Once a day as needed Furosemide [facility] 62912613936 40 MG Orally Active 1 tablet Once a day Results No Known Results Summary Purpose eClinicalWorks Submission
== END 2018-06-12 16:18 | disposition home health service (06) ==
LOC: SUPCPDRO 13:10 → ER 13:10 → ERHOLD 18:31 → INTOOBSV 18:31 → 2ND 20:43
PROVIDERS: ADMIT Internal Medicine; ATTEND Internal Medicine
DX: N30.00 Acute cystitis without hematuria (principal); E11.9 Type 2 diabetes mellitus without complications; E03.9 Hypothyroidism, unspecified; I10 Essential (primary) hypertension; Z23 Encounter for immunization; Z96.641 Presence of right artificial hip joint
CPT/HCPCS: 36415; 51702 ×2; 70450; 71045; 72170; 73502; 73562; 74176; 80048 ×2; 80076; 82962 ×5; 83605; 83735; 83880; 84145; 84484; 85025 ×2; 85610; 87040 ×2; 87086; 87088; 90670; 93005; 96361; 96365; 96375; 97163; 99285; G0009; G0378 ×2; J0696 ×2; J2270; J3010; J7030; 81003; 81015